=== PATIENT | female | born 1945 | race Caucasian/White ===

== ENCOUNTER 2023-06-09 09:14 | Outpatient (OUT) | payer MEDICARE, OTHER, SELFPAY ==
[2023-06-09 10:06] LABS: Basophils Percent Auto 0.5 % (0.2-2.0); Eosinophils Absolute Auto 0.1 10^3/uL (0.0-0.7); Eosinophils Percent Auto 1.8 % (0.9-7.0); Hematocrit 32.2 % (36.0-48.0); Hemoglobin 10.5 g/dL (12.0-16.0); Immature Granulocytes Abs Auto 0.04 10^3/uL (0.00-0.03); Immature Granulocytes Pct Auto 0.7 % (0.0-0.5); Lymphocytes Absolute Auto 1.5 10^3/uL (1.2-3.8); Lymphocytes Percent Auto 27.2 % (20.5-60.0); Mean Corpuscular HGB Conc 32.6 g/dL (29.9-35.2); Mean Corpuscular Hemoglobin 26.6 pg (26.7-34.0); Mean Corpuscular Volume 81.7 fL (81.0-99.0); Monocytes Absolute Auto 0.4 10^3/uL (0.3-0.8); Monocytes Percent Auto 7.8 % (1.7-12.0); Neutrophils Absolute Auto 3.5 10^3/uL (1.4-6.5); Platelet Count 214 10^3/uL (150-450); Red Blood Count 3.94 10^6/uL (4.20-5.40); Red Cell Distribution Width 14.6 % (11.0-15.0); White Blood Count 5.7 10^3/uL (4.0-11.0)
[2023-06-09 10:18] LABS: Alanine Aminotransferase 13 U/L (14-59); Albumin Globulin Ratio 1.3; Albumin Level 3.9 g/dL (3.4-5.0); Alkaline Phosphatase 79 U/L (46-116); Anion Gap 12.5; Aspartate Amino Transferase 14 U/L (15-37); BUN Creatinine Ratio 25.5; Bilirubin Total 0.4 mg/dL (0.2-1.0); Calcium 10.1 mg/dL (8.5-10.1); Carbon Dioxide 25.9 mmol/L (21.0-32.0); Chloride 105 mmol/L (98-107); Estimated GFR (African America 58 (>=60); Estimated GFR (Non-African Ame 48 (>=60); Glucose 99 mg/dL (74-106); Potassium 4.4 mmol/L (3.5-5.1); Sodium 139 mmol/L (136-145); Total Protein 6.9 g/dL (6.4-8.2)
== END 2023-06-09 09:15 | disposition home or self-care (01) ==
LOC: LAB 09:19
PROVIDERS: PCP Nurse Practitioner
DX: M10.09 Idiopathic gout, multiple sites (principal); M15.0 Primary generalized (osteo)arthritis; Z79.899 Other long term (current) drug therapy
CPT/HCPCS: 36415; 80053; 84550; 85025

== ENCOUNTER 2023-06-09 09:25 | Outpatient (OUT) | payer MEDICARE, OTHER, SELFPAY ==
[2023-06-09 10:17] LABS: Alanine Aminotransferase 14 U/L (14-59); Albumin Globulin Ratio 1.4; Alkaline Phosphatase 80 U/L (46-116); Anion Gap 13.1; Aspartate Amino Transferase 12 U/L (15-37); BUN Creatinine Ratio 26.4; Bilirubin Total 0.4 mg/dL (0.2-1.0); Calcium 10.1 mg/dL (8.5-10.1); Carbon Dioxide 26.3 mmol/L (21.0-32.0); Chloride 105 mmol/L (98-107); Estimated GFR (African America 58 (>=60); Estimated GFR (Non-African Ame 48 (>=60); Globulin 2.9 g/dL; Glucose 100 mg/dL (74-106); Potassium 4.4 mmol/L (3.5-5.1); Sodium 140 mmol/L (136-145); Total Protein 6.9 g/dL (6.4-8.2)
[2023-06-10 15:11] LABS: PTH, Intact 159 pg/mL (15-65)
== END 2023-06-09 09:26 | disposition home or self-care (01) ==
PROVIDERS: PCP Nurse Practitioner; Visit Provider Nurse Practitioner
DX: E55.9 Vitamin D deficiency, unspecified (principal); N25.81 Secondary hyperparathyroidism of renal origin; M10.09 Idiopathic gout, multiple sites; M15.0 Primary generalized (osteo)arthritis; Z79.899 Other long term (current) drug therapy
CPT/HCPCS: 36415; 80053; 82306; 83970; 84550; 85025

== ENCOUNTER 2023-08-09 20:24 | Inpatient (IN) | payer MEDICARE, OTHER, SELFPAY ==
[2023-08-09] VITALS (11 sets, daily range): BP systolic 107–145; BP diastolic 58–91; PULSE 82–98; RESP 16; TEMP 36.4–36.7; O2SAT 93–98; BMI 29.6
--- NOTE | 2023-08-09 20:57 | ED.NAVMDI1 ---
HPI - Nausea/Vomiting/Diarrhea General Chief complaint: Nausea/Vomiting/Diarrhea Stated complaint: COVID+ 08/03/23, Flu Like Symptoms Time Seen by Provider: 08/09/23 20:26 Source: patient and family Mode of arrival: Wheelchair Limitations: no limitations History of Present Illness HPI Narrative: 77-year-old female presents with continued diarrhea and concern for dehydration for the past 10 days. She was diagnosed with COVID last week. She has also been vomiting and was given Zofran by her family doctor yesterday and no episodes of vomiting today. She had 1 episode of watery diarrhea today. Daughter states that she has been trying to drink fluids, but has only urinated once today. She complains of acid reflux with the vomiting. She does not complain of any abdominal pain. No recent antibiotics. Denies fever, cough, dizziness, abd or back pain, dysuria, SOB or CP Related Data Home Medications Medication Instructions Recorded Confirmed amlodipine 10 mg tablet 10 mg PO DAILY 08/09/23 08/09/23 colchicine 0.5 mg tablet 0.6 mg PO DAILY 08/09/23 08/09/23 febuxostat 80 mg tablet (Uloric) 80 mg PO DAILY 08/09/23 08/09/23 fluoxetine 20 mg capsule 20 mg PO DAILY 08/09/23 08/09/23 lisinopril 20 mg tablet 10 mg PO DAILY 08/09/23 08/09/23 methylprednisolone 4 mg tablet 2 mg PO PRN 08/09/23 08/09/23 (Medrol) omeprazole 20 mg capsule,delayed 20 mg PO DAILY 08/09/23 08/09/23 release rosuvastatin 10 mg tablet (Crestor) 10 mg PO DAILY 08/09/23 08/09/23 tramadol 50 mg tablet 25 mg PO Q6H PRN pain 08/09/23 08/09/23 Allergies Allergy/AdvReac Type Severity Reaction Status Date / Time Penicillins Allergy Unknown Verified 08/09/23 20:46 Review of Systems ROS Status of ROS 10 or more systems reviewed and unremarkable except as noted in history and below [facility] Medical History (Updated 08/09/23 @ 23:43 by Finn Arias MD) HTN (hypertension) ?I10 - Essential (primary) hypertension (ICD-10) Family History (Updated 08/09/23 @ 23:09 by Stella Oneal) Mother Family history of CHF (congestive heart failure) Family history of COPD (chronic obstructive pulmonary disease) Family history of diabetes mellitus Family history of cancer Family history of hypertension Social History (Updated 08/09/23 @ 23:10 by Stella Oneal) Within the past year, how often did you have a drink containing alcohol: never Within the past year, how often did you have six or more drinks on one occasion: never Score interpretation: A score less than 3 is consistent with normal alcohol consumption. Smoking status: Never smoker Second hand tobacco smoke exposure: No Non-prescribed substance use: denies use Previous occupational history: Housewife. Known occupational exposures/hazards: No Highest level of school completed/degree received: high school graduate Do you want help with school or training: No Are you now , , , , never or living with a partner: In a typical week, how many times do you talk on the telephone with family, friends, or neighbors: 3 or more times per week How often do you get together with friends or relatives: 3 or more times per week How often do you attend moravian or episcopalian services: 4 or more times per year Do you belong to any clubs or organizations such as moravian groups unions, [employer] or athletic groups, or school groups: no Total score: 3 Score interpretation: A score of greater than or equal to 2 indicates the lowest level of social isolation. Little interest or pleasure in doing things: not at all Feeling down, depressed, or hopeless: not at all Feel stressed/tense/nervous/anxious/difficulty sleeping: not at all Due to disability, difficulty making decisions: No Do you think of yourself as: straight/heterosexual Gender Identity: female Exam Narrative Exam Narrative: General: alert, no distress, talking in full an complete sentences skin: warm, dry, intact head: normocephalic, atraumatic eyes: EOMI, normal conjunctiva nose: nares patent neck: supple, trachea midline cardiac: +S1/S1. no murmur respiratory: lungs CTA, non-labored, no wheezing, no retractions abdomen: soft, NT extremities: FROM x 4, strength +5/5, capillary refill intact neuro: A&Ox3 psych: appropriate mood and affect, cooperative Constitutional Vital Signs, click to edit/add: Last Vital Signs Temp 97.6 F 10/11/23 22:47 Pulse 82 08/09/23 22:47 Resp 16 08/09/23 22:47 BP 130/78 08/09/23 22:47 Pulse Ox 96 08/09/23 22:47 O2 Del Method Room Air 08/09/23 22:47 Course Vital Signs Vital signs: Vital Signs Temperature 98.1 F 08/09/23 20:42 Pulse Rate 98 H 08/09/23 20:42 Respiratory Rate 16 08/09/23 20:42 Blood Pressure 145/91 H 08/09/23 20:42 Pulse Oximetry 98 08/09/23 20:42 Oxygen Delivery Method Room Air 08/09/23 20:42 Temperature 97.6 F 08/09/23 22:47 Pulse Rate 82 08/09/23 22:47 Respiratory Rate 16 08/09/23 22:47 Blood Pressure 130/78 08/09/23 22:47 Pulse Oximetry 96 08/09/23 22:47 Oxygen Delivery Method Room Air 08/09/23 22:47 MDM - Nausea/Vomiting/Diarrhea MDM Narrative Medical decision making narrative: Patient given IV fluids, Protonix for the acid reflux and GI cocktail. Creatinine 2.09 and previously 1.1 is diagnosed with ANA. Magnesium 1.2 and will be given 4 g IV. No other significant lab normalities. C. difficile ordered, but she has not given a sample yet. Case discussed with the Dr. Arias, hospitalist who accepts admission. Lab Data Labs: Lab Results 08/09/23 Range/Units 21:02 WBC 7.1 (4.0-11.0) 10^3/uL RBC 4.20 (4.20-5.40) 10^6/uL Hgb 10.9 L (12.0-16.0) g/dL Hct 34.3 L (36.0-48.0) % MCV 81.7 (81.0-99.0) fL MCH 26.0 L (26.7-34.0) pg MCHC 31.8 (29.9-35.2) g/dL RDW 14.6 (11.0-15.0) % Plt Count 349 (150-450) 10^3/uL MPV 9.6 (9.5-13.5) fL Neut % (Auto) 66.8 (43.0-75.0) % Lymph % (Auto) 15.9 L (20.5-60.0) % [place] % (Auto) 14.9 H (1.7-12.0) % Eos % (Auto) 0.1 L (0.9-7.0) % Baso % (Auto) 0.6 (0.2-2.0) % Neut # (Auto) 4.7 (1.4-6.5) 10^3/uL Lymph # (Auto) 1.1 L (1.2-3.8) 10^3/uL [place] # (Auto) 1.1 H (0.3-0.8) 10^3/uL Eos # (Auto) 0.0 (0.0-0.7) 10^3/uL Baso # (Auto) 0.0 (0.0-0.1) 10^3/uL Abs Immat Gran (auto) 0.12 H (0.00-0.03) 10^3/uL Imm/Tot Granulo (auto) 1.7 H (0.0-0.5) % Sodium 137 (136-145) mmol/L Potassium 3.8 (3.5-5.1) mmol/L Chloride 103 (98-107) mmol/L Carbon Dioxide 23.1 (21.0-32.0) mmol/L Anion Gap 14.7 BUN 39.0 H (7.0-18.0) mg/dL Creatinine 2.09 H (0.55-1.02) mg/dL Est GFR ( Amer) 28 L (>=60) Est GFR (Non-Af Amer) 23 L (>=60) BUN/Creatinine Ratio 18.7 Glucose 115 H (74-106) mg/dL Calcium 9.4 (8.5-10.1) mg/dL Magnesium 1.2 L (1.8-2.4) mg/dL Total Bilirubin 0.4 (0.2-1.0) mg/dL AST 14 L (15-37) U/L ALT 12 L (14-59) U/L Alkaline Phosphatase 90 (46-116) U/L Total Protein 6.8 (6.4-8.2) g/dL Albumin 3.3 L (3.4-5.0) g/dL Globulin 3.5 g/dL Albumin/Globulin Ratio 0.9 Discharge Plan Discharge Chief Complaint: Nausea/Vomiting/Diarrhea Clinical Impression: ANA (acute kidney injury), Nausea and vomiting, Hypomagnesemia, COVID-19 Patient Disposition: Admitted As Inpatient Time of Disposition Decision: 21:45 Condition: Good
[2023-08-09 21:09] LABS: Basophils Percent Auto 0.6 % (0.2-2.0); Eosinophils Percent Auto 0.1 % (0.9-7.0); Hematocrit 34.3 % (36.0-48.0); Hemoglobin 10.9 g/dL (12.0-16.0); Immature Granulocytes Abs Auto 0.12 10^3/uL (0.00-0.03); Immature Granulocytes Pct Auto 1.7 % (0.0-0.5); Lymphocytes Absolute Auto 1.1 10^3/uL (1.2-3.8); Lymphocytes Percent Auto 15.9 % (20.5-60.0); Mean Corpuscular HGB Conc 31.8 g/dL (29.9-35.2); Mean Corpuscular Volume 81.7 fL (81.0-99.0); Mean Platelet Volume 9.6 fL (9.5-13.5); Monocytes Absolute Auto 1.1 10^3/uL (0.3-0.8); Monocytes Percent Auto 14.9 % (1.7-12.0); Neutrophils Absolute Auto 4.7 10^3/uL (1.4-6.5); Neutrophils Percent Auto 66.8 % (43.0-75.0); Platelet Count 349 10^3/uL (150-450); Red Cell Distribution Width 14.6 % (11.0-15.0); White Blood Count 7.1 10^3/uL (4.0-11.0)
[2023-08-09] MEDS: lidocaine HCL 15 ML, MAG HYDROX/ALUMINUM HYD/SIMETH 30 ML, HYOSCYAMINE SULFATE 0.25 MG PO (21:22)
[2023-08-09] MEDS: 0.9 % SODIUM CHLORIDE 1,000 ML 500 ML IV (21:22)
[2023-08-09] MEDS: PANTOPRAZOLE SODIUM 40 MG VIAL IV (21:22)
[2023-08-09 21:27] LABS: Alanine Aminotransferase 12 U/L (14-59); Albumin Globulin Ratio 0.9; Albumin Level 3.3 g/dL (3.4-5.0); Alkaline Phosphatase 90 U/L (46-116); Anion Gap 14.7; Aspartate Amino Transferase 14 U/L (15-37); BUN Creatinine Ratio 18.7; Bilirubin Total 0.4 mg/dL (0.2-1.0); Calcium 9.4 mg/dL (8.5-10.1); Carbon Dioxide 23.1 mmol/L (21.0-32.0); Chloride 103 mmol/L (98-107); Estimated GFR (African America 28 (>=60); Estimated GFR (Non-African Ame 23 (>=60); Globulin 3.5 g/dL; Glucose 115 mg/dL (74-106); Magnesium 1.2 mg/dL (1.8-2.4); Potassium 3.8 mmol/L (3.5-5.1); Sodium 137 mmol/L (136-145); Total Protein 6.8 g/dL (6.4-8.2)
--- NOTE | 2023-08-09 21:33 | PC.NURSE ---
pt presents to ED because patient states that on the monday prior to 08/03/2023 she started having n/v. pt diagnosed with covid on the . patient states that she was at [facility] on and admitted and discharged after a day. yesterday patient was throwing up all day and daughter called pcp and had zofran sent to pharmacy. pt hasn't thrown up since last night. patient started having diarrhea today and unable to keep fluids down without having abdominal pain.
[2023-08-09] MEDS: MAGNESIUM SULFATE IN WATER 2 GM/50 ML PREMIX IV (22:21)
[2023-08-09] MEDS: 0.9 % SODIUM CHLORIDE 1,000 ML 100 ML IV (23:32)
[2023-08-09] MEDS: ENOXAPARIN SODIUM 30 MG/0.3 ML SYRINGE SUBQ (23:32)
--- NOTE | 2023-08-09 23:39 | W.PM.TELEPN ---
Progress Note: Subjective Subjective Interval history: CC: Weakness, fatigue, nausea, vomiting, diarrhea HPI: This is a very pleasant 77 years old female who presents with above complaints. Patient stating that about 10 days ago she developed nausea, vomiting and bouts of watery diarrhea. Few days later she has been diagnosed with COVID 19 infection. Patient denies any respiratory symptoms. She is not able to tolerate oral intake. She gradually become weak and dizzy. On evaluation in the emergency room patient found to have worsening renal failure, electrolyte derangements. Medical services consulted for admission Exam Narrative Exam Narrative: ROS: 1.General: See above 2.HEENT: no APPLE, no blurry vision, no swallow problems, no nasal congestion, no sore throat 3.Pulmonary: no cough, SOB, wheezes 4.CVS: no CP, no palpitations, no VAZQUEZ, no SOB, no intermittent claudication 5.GI: See above 6.: no renal colic, no hematuria, urinary frequency or urgency 7.Extremities: no edema 8.Neurological: no dizziness, vertigo, double or blurry vision, no no focal weakness, no paresthesia, no swallow or speech problems 9.Musculosceletal: no joint pains, no joint swelling, no back pain 10.Dermatological: no skin rashes, no lesions, no pruritus 11.Hematological: no bleeding, no hx/o clots 12.Endocrinological: no heat/cold intolerance, no hx/o diabetes 13.Psychiatric: no suicidal or homicidal thoughts Physical Exam: Not in distress, pleasant, lucid, cooperative, Head - atraumatic, eyes - pupils equal, round, reactive to light, extra ocular movement intact, dry mucous membranes Neck - supple, thyroid not enlarged, LN not palpated Lungs - clear to auscultation, no dullness on percussion CVS - heart sounds S1, S2, no additional murmurs gallop, regular rate and rhythm Gastrointestinal?abdomen is soft, non-tender, non-distended, no organomegaly, positive bowel sounds Extremities no clubbing, cyanosis or edema Neurological?cranial nerve II?XII grossly intact, no meningeal signs, no cerebellar signs, no sensory deficit Musculoskeletal - joints, no effusions, ROM preserved Dermatological - the skin dry, warm, no rashes Psychiatric?patient is AAO X3, patient has normal affect Constitutional Vital Signs, click to edit/add: Last Vital Signs Temp 97.6 F 08/09/23 22:47 Pulse 82 08/09/23 22:47 Resp 16 08/09/23 22:47 BP 130/78 08/09/23 22:47 Pulse Ox 96 08/09/23 22:47 O2 Del Method Room Air 08/09/23 22:47 Progress Note: Objective Labs Labs: Short CBC 08/09/23 Range/Units 21:02 WBC 7.1 (4.0-11.0) 10^3/uL Hgb 10.9 L (12.0-16.0) g/dL Hct 34.3 L (36.0-48.0) % Plt Count 349 (150-450) 10^3/uL BMP 08/09/23 21:02 Sodium 137 Potassium 3.8 Chloride 103 Carbon Dioxide 23.1 BUN 39.0 H Creatinine 2.09 H Glucose 115 H Calcium 9.4 Liver Function 08/09/23 Range/Units 21:02 Total Bilirubin 0.4 (0.2-1.0) mg/dL AST 14 L (15-37) U/L ALT 12 L (14-59) U/L Alkaline Phosphatase 90 (46-116) U/L Albumin 3.3 L (3.4-5.0) g/dL Progress Note: A&P Assessment and Plan (1) ANA (acute kidney injury): Assessment and Plan: This is related to GI losses. Symptoms controlled with Zofran. IV fluid resuscitation. Encourage oral intake (2) Nausea and vomiting: Assessment and Plan: As above (3) COVID-19: Assessment and Plan: Symptomatic and supportive care. Patient does not have any pulmonary involvement. No specific treatment. (4) Hypomagnesemia: Assessment and Plan: Replacement given in the emergency room. Recheck in the morning. Adjust as needed. (5) HTN (hypertension): Assessment and Plan: Hold off home dose of lisinopril while patient treated for renal insufficiency (6) Dyslipidemia: Assessment and Plan: Continue home dose of statin (7) Gout: Assessment and Plan: Continue allopurinol for flare prevention Plan As the provider for the telehealth service, I attest that I introduced myself to the patient, provided my credentials, disclosed by location and determined that based on a review of the patient's chart and discussion with members of the patient's treatment team, telemedicine via real-time, 2 way, and interactive audio and video platform is an appropriate and effective means of providing the service. ?The patient and I mutually agree this visit is appropriate for telemedicine. ?The virtual encounter was taken place from? [place], [place]. ?The encounter took approximately 35 minutes. ?The nurse was present during the entire time and I was able to move the stethoscope in appropriate directions. ?The patient was evaluated at the Hospital ? Portions of this note may be dictated using [employer] voice recognition software. Variances in spelling and vocabulary are possible and unintentional. Not all errors may be caught and/or corrected. Please notify the author if any discrepancies are noted and/or if the meaning of any statement is unclear.? ? Patient verbally consented for treatment via video visit with patient currently located at the [facility] and provider located in [place]. Telemedicine Attestation Telemedicine Attestation I conducted this encounter from [[place]] via secure live, [id number] video conference with the patient, located at [facility] with [ANA]. Prior to the interview, the risks and benefits of telemedicine were discussed with the patient and verbal consent was obtained.
[2023-08-10 04:38] VITALS: BP 119/73; PULSE 76; RESP 16; TEMP 36.7; O2SAT 95
[2023-08-10 06:57] LABS: Basophils Percent Auto 0.2 % (0.2-2.0); Eosinophils Percent Auto 0.2 % (0.9-7.0); Hematocrit 27.4 % (36.0-48.0); Hemoglobin 8.7 g/dL (12.0-16.0); Immature Granulocytes Abs Auto 0.07 10^3/uL (0.00-0.03); Immature Granulocytes Pct Auto 1.7 % (0.0-0.5); Lymphocytes Percent Auto 23.2 % (20.5-60.0); Mean Corpuscular HGB Conc 31.8 g/dL (29.9-35.2); Mean Corpuscular Hemoglobin 26.3 pg (26.7-34.0); Mean Corpuscular Volume 82.8 fL (81.0-99.0); Mean Platelet Volume 9.8 fL (9.5-13.5); Monocytes Absolute Auto 0.5 10^3/uL (0.3-0.8); Monocytes Percent Auto 12.5 % (1.7-12.0); Neutrophils Absolute Auto 2.5 10^3/uL (1.4-6.5); Neutrophils Percent Auto 62.2 % (43.0-75.0); Platelet Count 229 10^3/uL (150-450); Red Blood Count 3.31 10^6/uL (4.20-5.40); Red Cell Distribution Width 14.5 % (11.0-15.0); White Blood Count 4.1 10^3/uL (4.0-11.0)
[2023-08-10 07:01] LABS: Anion Gap 12.4; BUN Creatinine Ratio 23.8; Carbon Dioxide 24.5 mmol/L (21.0-32.0); Chloride 107 mmol/L (98-107); Estimated GFR (African America 36 (>=60); Estimated GFR (Non-African Ame 30 (>=60); Glucose 93 mg/dL (74-106); Magnesium 1.7 mg/dL (1.8-2.4); Potassium 3.9 mmol/L (3.5-5.1); Sodium 140 mmol/L (136-145)
[2023-08-10 07:55] LABS: SARS-CoV-2 Ag POSITIVE (NEGATIVE)
[2023-08-10 08:29] VITALS: BP 115/68
[2023-08-10] MEDS: OMEPRAZOLE 20 MG CAPSULE.DR PO (08:29)
[2023-08-10] MEDS: ATORVASTATIN CALCIUM 40 MG TABLET PO (08:29)
[2023-08-10] MEDS: AMLODIPINE BESYLATE 5 MG TABLET 10 MG PO (08:29)
[2023-08-10] MEDS: FLUOXETINE HCL 20 MG CAPSULE PO (08:29)
[2023-08-10] MEDS: CETIRIZINE HCL 10 MG TABLET PO (08:35)
[2023-08-10] MEDS: ACETAMINOPHEN 325 MG TABLET 650 MG PO (08:35)
[2023-08-10] MEDS: MAGNESIUM SULFATE IN WATER 2 GM/50 ML PREMIX IV (08:41)
--- NOTE | 2023-08-10 11:11 | P.HP_ITS ---
H&P: HPI History of Present Illness Chief complaint: Nausea, vomiting, diarrhea Narrative: 77 y/o female who presents to ER with GI symptoms for 10 days. Initially developed nausea and vomiting. Given zofran and found covid-19 positive. Developed diarrhea. C/o decreased appetite and not drinking much since. Continued diarrhea. Afebrile. No SOB or cough. Developed worsening weakness and fatigue. No abdominal pain or cramping. Concerned of dehydration and to ER. Labs showed ANA and low magnesium. Covid-19 positive. Admitted for treatment. Started IV fluids and replacement magnesium. Continues to c/o severe weakness. Continues to have nausea and not able to eat or drink much. Afebrile. Review of Systems ROS Constitutional Reports: fatigue; Denies: fever, chills or night sweats Cardiovascular Denies: chest pain, palpitations or edema Respiratory Denies: shortness of breath, cough or wheezing Gastrointestinal Reports: nausea, vomiting and diarrhea; Denies: abdominal pain Genitourinary Denies: painful urination PFSH [facility] Medical History (Updated 08/10/23 @ 10:30 by Avery Smith MD) Dyslipidemia ?E78.5 - Hyperlipidemia, unspecified (ICD-10) Gout ?M10.9 - Gout, unspecified (ICD-10) Nausea and vomiting ?R11.2 - Nausea with vomiting, unspecified (ICD-10) Family History (Updated 08/09/23 @ 23:09 by Stella Oneal) Mother Family history of CHF (congestive heart failure) Family history of COPD (chronic obstructive pulmonary disease) Family history of diabetes mellitus Family history of cancer Family history of hypertension Social History (Updated 08/09/23 @ 23:10 by Stella Oneal) Within the past year, how often did you have a drink containing alcohol: never Within the past year, how often did you have six or more drinks on one occasion: never Score interpretation: A score less than 3 is consistent with normal alcohol consumption. Smoking status: Never smoker Second hand tobacco smoke exposure: No Non-prescribed substance use: denies use Previous occupational history: Housewife. Known occupational exposures/hazards: No Highest level of school completed/degree received: high school graduate Do you want help with school or training: No Are you now , , , , never or living with a partner: In a typical week, how many times do you talk on the telephone with family, friends, or neighbors: 3 or more times per week How often do you get together with friends or relatives: 3 or more times per week How often do you attend religion or anglican services: 4 or more times per year Do you belong to any clubs or organizations such as religion groups unions, fraternal or athletic groups, or school groups: no Total score: 3 Score interpretation: A score of greater than or equal to 2 indicates the lowest level of social isolation. Little interest or pleasure in doing things: not at all Feeling down, depressed, or hopeless: not at all Feel stressed/tense/nervous/anxious/difficulty sleeping: not at all Due to disability, difficulty making decisions: No Do you think of yourself as: straight/heterosexual Gender Identity: female Meds Home Medications and Allergies Home Medications Medication Instructions Recorded Confirmed Type amlodipine 10 mg tablet 10 mg PO DAILY 08/09/23 08/09/23 History febuxostat 80 mg tablet (Uloric) 80 mg PO DAILY 08/09/23 08/09/23 History fluoxetine 20 mg capsule 20 mg PO DAILY 08/09/23 08/09/23 History lisinopril 20 mg tablet 20 mg PO DAILY 08/09/23 08/10/23 History omeprazole 20 mg capsule,delayed 20 mg PO DAILY 08/09/23 08/09/23 History release rosuvastatin 10 mg tablet (Crestor) 10 mg PO DAILY 08/09/23 08/09/23 History tramadol 50 mg tablet 25 mg PO BID PRN pain 08/09/23 08/10/23 History cetirizine 10 mg tablet (24Hour 10 mg PO DAILY 08/10/23 08/10/23 History Allergy) colchicine (gout) 0.6 mg tablet 0.6 mg PO DAILY PRN gout flair 08/10/23 08/10/23 History (Colcrys) Allergies Allergy/AdvReac Type Severity Reaction Status Date / Time Penicillins Allergy Unknown Verified 08/09/23 20:46 Exam Constitutional Vital Signs, click to edit/add: Last Vital Signs Temp 98.0 F 08/10/23 04:38 Pulse 76 08/10/23 04:38 Resp 16 08/10/23 04:38 BP 115/68 08/10/23 08:29 Pulse Ox 95 08/10/23 04:38 O2 Del Method Room Air 08/10/23 04:38 Documenting provider has reviewed patient's vital signs: yes Common normals: no apparent distress, oriented x3 and alert HENMT Common normals: normocephalic Eye Common normals: PERRL and EOMs intact bilaterally Respiratory Common normals: normal respiratory effort and clear to auscultation bilaterally Cardio Common normals: regular rate, regular rhythm, no gallops, no murmurs and no rub GI Common normals: Normal to inspection, nondistended, normoactive bowel sounds present and non-tender Extremity Common normals: no pedal edema Results Labs Labs: Short CBC 08/09/23 08/10/23 Range/Units 21:02 06:40 WBC 7.1 4.1 (4.0-11.0) 10^3/uL Hgb 10.9 L 8.7 L (12.0-16.0) g/dL Hct 34.3 L 27.4 L (36.0-48.0) % Plt Count 349 229 (150-450) 10^3/uL BMP 08/09/23 08/10/23 21:02 06:40 Sodium 137 140 Potassium 3.8 3.9 Chloride 103 107 Carbon Dioxide 23.1 24.5 BUN 39.0 H 40.0 H Creatinine 2.09 H 1.68 H Glucose 115 H 93 Calcium 9.4 9.0 Liver Function 08/09/23 Range/Units 21:02 Total Bilirubin 0.4 (0.2-1.0) mg/dL AST 14 L (15-37) U/L ALT 12 L (14-59) U/L Alkaline Phosphatase 90 (46-116) U/L Albumin 3.3 L (3.4-5.0) g/dL Assessment and Plan Assessment and Plan (1) ANA (acute kidney injury): (2) Nausea and vomiting: (3) COVID-19: (4) Hypomagnesemia: (5) HTN (hypertension): (6) Dyslipidemia: (7) Gout: Plan Diagnosed with Covid-19 08/03 and symptoms worsening. Continued diarrhea and nausea along with decreased PO intake. Labs showed ANA and continue IV fluids. Use zofran PRN. Slowly advance diet as tolerated. Start PT for weakness. Resume home medication. Patient meets inpatient criteria based on needing a least 2 midnights in the hospital.
--- NOTE | 2023-08-10 11:36 | CM.NOTE ---
Rounds made with Dr. Smith. No plan for discharge today. Verbalizes understanding.
[2023-08-10] MEDS: ONDANSETRON PF 4 MG/2 ML VIAL IV ×2 (11:52→16:14)
[2023-08-10] MEDS: 0.9 % SODIUM CHLORIDE 1,000 ML 100 ML IV ×2 (11:52→20:36)
[2023-08-10 13:31] VITALS: BP 158/88; PULSE 76; RESP 2; TEMP 36.6; O2SAT 95
--- NOTE | 2023-08-10 13:35 | PC.NURSE ---
pt showed nurse that she had not taken her Uloric this am and had left them on bedside table,, stating they cause her diarhhea but she forgot to tell nurse this am. Pills thrown out at this time.
--- NOTE | 2023-08-10 14:00 | SWNOTE1 ---
SW met with pt to discuss dc needs. Pt lives at home with her and daughter. Pt voices she is independent at home and has no concerns about discharge at this time. Pt worked with therapy and had no needs. SW reviewed Important Message from Medicare form with pt. Pt voiced understanding, no questions at this time. Pt signed form, original given to pt and copy placed on chart.
[2023-08-10 14:20] VITALS: BP 143/77; PULSE 72; RESP 16; TEMP 36.9
[2023-08-10 19:32] VITALS: BP 141/74; PULSE 71; RESP 16; TEMP 37.1; O2SAT 94
[2023-08-10] MEDS: TRAMADOL HCL 50 MG TABLET 25 MG PO (20:36)
[2023-08-10] MEDS: ENOXAPARIN SODIUM 30 MG/0.3 ML SYRINGE SUBQ (22:45)
[2023-08-11] MEDS: ACETAMINOPHEN 325 MG TABLET 650 MG PO ×4 (00:18→22:35)
[2023-08-11] MEDS: TRAMADOL HCL 50 MG TABLET 25 MG PO (04:36)
[2023-08-11 04:37] VITALS: BP 146/80; PULSE 89; RESP 16; TEMP 37.2; O2SAT 93
[2023-08-11 05:12] LABS: Basophils Percent Auto 0.2 % (0.2-2.0); Eosinophils Percent Auto 0.4 % (0.9-7.0); Hematocrit 27.4 % (36.0-48.0); Hemoglobin 8.4 g/dL (12.0-16.0); Immature Granulocytes Abs Auto 0.08 10^3/uL (0.00-0.03); Immature Granulocytes Pct Auto 1.5 % (0.0-0.5); Lymphocytes Absolute Auto 1.1 10^3/uL (1.2-3.8); Lymphocytes Percent Auto 19.3 % (20.5-60.0); Mean Corpuscular HGB Conc 30.7 g/dL (29.9-35.2); Mean Corpuscular Hemoglobin 26.2 pg (26.7-34.0); Mean Corpuscular Volume 85.4 fL (81.0-99.0); Monocytes Absolute Auto 0.6 10^3/uL (0.3-0.8); Monocytes Percent Auto 11.2 % (1.7-12.0); Neutrophils Absolute Auto 3.7 10^3/uL (1.4-6.5); Neutrophils Percent Auto 67.4 % (43.0-75.0); Platelet Count 234 10^3/uL (150-450); Red Blood Count 3.21 10^6/uL (4.20-5.40); Red Cell Distribution Width 14.5 % (11.0-15.0); White Blood Count 5.4 10^3/uL (4.0-11.0)
[2023-08-11] MEDS: 0.9 % SODIUM CHLORIDE 1,000 ML 100 ML IV (05:27)
[2023-08-11 05:29] LABS: Anion Gap 11.2; BUN Creatinine Ratio 21.7; Calcium 8.9 mg/dL (8.5-10.1); Carbon Dioxide 21.6 mmol/L (21.0-32.0); Chloride 109 mmol/L (98-107); Estimated GFR (African America 49 (>=60); Estimated GFR (Non-African Ame 40 (>=60); Glucose 91 mg/dL (74-106); Potassium 3.8 mmol/L (3.5-5.1); Sodium 138 mmol/L (136-145)
[2023-08-11] MEDS: CETIRIZINE HCL 10 MG TABLET PO (08:36)
[2023-08-11 08:37] VITALS: BP 144/72
[2023-08-11] MEDS: AMLODIPINE BESYLATE 5 MG TABLET 10 MG PO (08:37)
[2023-08-11] MEDS: OMEPRAZOLE 20 MG CAPSULE.DR PO (08:37)
[2023-08-11] MEDS: FLUOXETINE HCL 20 MG CAPSULE PO (08:37)
[2023-08-11] MEDS: ATORVASTATIN CALCIUM 40 MG TABLET PO (08:37)
[2023-08-11 09:46] VITALS: O2SAT 92
--- NOTE | 2023-08-11 11:31 | CM.NOTE ---
Rounds made with Dr. Smith, no discharge today.
--- NOTE | 2023-08-11 11:38 | PM.PN ---
Progress Note: Subjective Subjective Interval history: Patient slightly improved today. Strength improved and ambulating better. Continues to have nausea but able to increase oral intake. Still with occasional diarrhea but slowing. Overall better but still significant weakness and difficulty moving around room. Afebrile. No chest pain or palpitations. No SOB or cough. Exam Constitutional Vital Signs, click to edit/add: Last Vital Signs Temp 98.9 F 08/11/23 04:37 Pulse 89 08/11/23 04:37 Resp 16 08/11/23 04:37 BP 144/72 H 08/11/23 08:37 Pulse Ox 92 L 08/11/23 09:46 O2 Del Method Room Air 08/11/23 09:46 Documenting provider has reviewed patient's vital signs: yes Common normals: no apparent distress, oriented x3 and alert HENMT Common normals: normocephalic Eye Common normals: PERRL and EOMs intact bilaterally Respiratory Common normals: normal respiratory effort and clear to auscultation bilaterally Cardio Common normals: regular rate, regular rhythm, no gallops, no murmurs and no rub GI Common normals: Normal to inspection, nondistended, normoactive bowel sounds present and non-tender Extremity Common normals: no pedal edema Progress Note: Objective Labs Labs: Short CBC 08/11/23 Range/Units 04:26 WBC 5.4 (4.0-11.0) 10^3/uL Hgb 8.4 L (12.0-16.0) g/dL Hct 27.4 L (36.0-48.0) % Plt Count 234 (150-450) 10^3/uL BMP 08/11/23 04:26 Sodium 138 Potassium 3.8 Chloride 109 H Carbon Dioxide 21.6 BUN 28.0 H Creatinine 1.29 H Glucose 91 Calcium 8.9 Progress Note: A&P Assessment and Plan (1) ANA (acute kidney injury): (2) Nausea and vomiting: (3) COVID-19: (4) Hypomagnesemia: (5) HTN (hypertension): (6) Dyslipidemia: (7) Gout: Plan Patient slowly improving but continued weakness. Decreased IV fluids and encourage PO intake. Continue PT and stressed need to ambulate around room. Monitor labs. Likely ready for discharge in next 1-2 days.
[2023-08-11 13:16] VITALS: BP 144/76; PULSE 84; RESP 20; TEMP 37.1; O2SAT 94
[2023-08-11] MEDS: 0.9 % SODIUM CHLORIDE 1,000 ML 70 ML IV (14:47)
[2023-08-11 20:10] VITALS: O2SAT 92
[2023-08-11 22:00] VITALS: BP 155/89; PULSE 74; RESP 18; TEMP 36.9; O2SAT 92
[2023-08-11] MEDS: ENOXAPARIN SODIUM 30 MG/0.3 ML SYRINGE SUBQ (23:12)
[2023-08-12] MEDS: TRAMADOL HCL 50 MG TABLET 25 MG PO (03:10)
[2023-08-12 05:37] VITALS: O2SAT 92
[2023-08-12 05:50] LABS: Basophils Percent Auto 0.2 % (0.2-2.0); Eosinophils Percent Auto 0.4 % (0.9-7.0); Hematocrit 27.7 % (36.0-48.0); Hemoglobin 8.7 g/dL (12.0-16.0); Immature Granulocytes Pct Auto 1.8 % (0.0-0.5); Lymphocytes Absolute Auto 0.9 10^3/uL (1.2-3.8); Lymphocytes Percent Auto 16.1 % (20.5-60.0); Mean Corpuscular HGB Conc 31.4 g/dL (29.9-35.2); Mean Corpuscular Hemoglobin 25.8 pg (26.7-34.0); Mean Corpuscular Volume 82.2 fL (81.0-99.0); Mean Platelet Volume 9.8 fL (9.5-13.5); Monocytes Absolute Auto 0.6 10^3/uL (0.3-0.8); Monocytes Percent Auto 10.1 % (1.7-12.0); Neutrophils Percent Auto 71.4 % (43.0-75.0); Platelet Count 209 10^3/uL (150-450); Red Blood Count 3.37 10^6/uL (4.20-5.40); Red Cell Distribution Width 14.3 % (11.0-15.0); White Blood Count 5.5 10^3/uL (4.0-11.0)
[2023-08-12 06:05] LABS: Anion Gap 11.8; BUN Creatinine Ratio 20.8; Calcium 9.1 mg/dL (8.5-10.1); Carbon Dioxide 22.1 mmol/L (21.0-32.0); Chloride 108 mmol/L (98-107); Estimated GFR (African America >60 (>=60); Estimated GFR (Non-African Ame 50 (>=60); Glucose 96 mg/dL (74-106); Potassium 3.9 mmol/L (3.5-5.1); Sodium 138 mmol/L (136-145)
[2023-08-12 06:08] LABS: Magnesium 1.5 mg/dL (1.8-2.4)
[2023-08-12] MEDS: 0.9 % SODIUM CHLORIDE 1,000 ML 70 ML IV (06:15)
[2023-08-12 06:43] VITALS: BP 141/82; PULSE 76; RESP 18; TEMP 36.9; O2SAT 93
[2023-08-12] MEDS: ACETAMINOPHEN 325 MG TABLET 650 MG PO (06:49)
--- NOTE | 2023-08-12 08:57 | PM.DS1 ---
DS: Providers Provider Date of admission: 08/10/23 10:30 Primary care physician: SOHAN QUIROZ Consults: 08/10/23 08:16 Occupational Therapy Eval and Treat Routine Reason for consultation: Weakness Physical Therapy Eval and Treat Routine Reason for consultation: Weakness DS: Diagnosis Discharge Diagnosis (1) ANA (acute kidney injury): (2) Nausea and vomiting: (3) COVID-19: (4) Hypomagnesemia: (5) HTN (hypertension): (6) Dyslipidemia: (7) Gout: DS: Summary Time Spent with Patient Time attestation: Total time spent providing and/or coordinating discharge services: Exam Constitutional Vital Signs, click to edit/add: Last Vital Signs Temp 98.4 F 08/12/23 06:43 Pulse 76 08/12/23 06:43 Resp 18 08/12/23 06:43 BP 141/82 08/12/23 06:43 Pulse Ox 93 L 08/12/23 06:43 O2 Del Method Room Air 08/12/23 06:43 DS: Data Data Completed and Pending Labs on day of discharge: Labs from last 24 hours 08/12/23 05:33 WBC 5.5 RBC 3.37 L Hgb 8.7 L Hct 27.7 L MCV 82.2 MCH 25.8 L MCHC 31.4 RDW 14.3 Plt Count 209 MPV 9.8 Neut % (Auto) 71.4 Lymph % (Auto) 16.1 L [place] % (Auto) 10.1 Eos % (Auto) 0.4 L Baso % (Auto) 0.2 Neut # (Auto) 4.0 Lymph # (Auto) 0.9 L [place] # (Auto) 0.6 Eos # (Auto) 0.0 Baso # (Auto) 0.0 Abs Immat Gran (auto) 0.10 H Imm/Tot Granulo (auto) 1.8 H Sodium 138 Potassium 3.9 Chloride 108 H Carbon Dioxide 22.1 Anion Gap 11.8 BUN 22.0 H Creatinine 1.06 H Est GFR ( Amer) >60 Est GFR (Non-Af Amer) 50 L BUN/Creatinine Ratio 20.8 Glucose 96 Calcium 9.1 Magnesium 1.5 L Discharge Plan Discharge Condition: Good Discharge Medications: No Action lisinopril 20 mg tablet 20 mg PO DAILY fluoxetine 20 mg capsule 20 mg PO DAILY amlodipine 10 mg tablet 10 mg PO DAILY tramadol 50 mg tablet 25 mg PO BID PRN (Reason: pain) omeprazole 20 mg capsule,delayed release(DR/EC) 20 mg PO DAILY rosuvastatin [Crestor] 10 mg tablet 10 mg PO DAILY febuxostat [Uloric] 80 mg tablet 80 mg PO DAILY colchicine (gout) [Colcrys] 0.6 mg tablet 0.6 mg PO DAILY PRN (Reason: gout flair) cetirizine [24Hour Allergy] 10 mg tablet 10 mg PO DAILY
[2023-08-12] MEDS: AMLODIPINE BESYLATE 5 MG TABLET 10 MG PO (09:01)
[2023-08-12] MEDS: FLUOXETINE HCL 20 MG CAPSULE PO (09:01)
[2023-08-12] MEDS: ATORVASTATIN CALCIUM 40 MG TABLET PO (09:01)
[2023-08-12] MEDS: OMEPRAZOLE 20 MG CAPSULE.DR PO (09:01)
[2023-08-12] MEDS: ONDANSETRON PF 4 MG/2 ML VIAL IV ×2 (09:01→13:26)
[2023-08-12] MEDS: FEBUXOSTAT 40 MG TABLET 80 MG PO (09:01)
[2023-08-12] MEDS: CETIRIZINE HCL 10 MG TABLET PO (09:01)
--- NOTE | 2023-08-12 12:12 | XR_ITS ---
The [address] [address] Patient Name: NADJA MCGRAW MRN: [id number] date: 1945 Sex: F Assigned Patient Location: Current Patient Location: Accession/Order Number: [id number] Exam Date: 08/12/2023 13:15 Report Date: 08/12/2023 15:28 At the request of: JACKIE ESTRADA Procedure: XR acute abdomen series PROCEDURE: XR acute abdomen series DATE: 08/12/2023 12:15 PM CDT COMPARISONS: None. CLINICAL INDICATION: 77 years Female abdominal pain and bloating FINDINGS: Frontal view the chest is done as part of the abdominal series. Heart and mediastinum are within normal limits. The lungs are clear. There is no pleural effusion or pneumothorax There is no evidence of free intraperitoneal air. There is prominent diffuse distention of the mid and proximal small bowel. There is a small amount of gas in the stomach. There is a paucity of gas in the colon. This bowel gas pattern likely represents mid to distal high-grade small bowel obstruction. No abnormal calcifications overlie the abdomen. XR/XR acute abdomen series IMPRESSION: Abdominal radiographs show findings most consistent with relatively high-grade mid to distal small bowel obstruction. Electronically authenticated by: GREER DAVIES Date: 08/12/2023 15:28
[2023-08-12] MEDS: TRAMADOL HCL 50 MG TABLET PO (13:26)
[2023-08-12 14:40] VITALS: BP 158/94; PULSE 83; RESP 18; TEMP 37; O2SAT 94
--- NOTE | 2023-08-12 15:10 | P.PN_ITS ---
Progress Note: Subjective Subjective Interval history: patient still complaining of nausea and having episodes of vomiting this afternoon, no diarrhea or bowel movement. She has been holding down breakfast and some dinner from last night. Patient denies any fevers chills. Having more body aches today and asks for an increase in her pain medication Exam Narrative Exam Narrative: General: Patient is alert, and oriented to person, place and time with normal affect, proper hygiene Skin: no visible rashes, or ulcers Head: atraumatic, acephalic Heart: Normal rate and rhythm, no murmurs/rubs/gallops Lungs: no audible wheezes, crackles and normal breath sounds all lung tristan Abdomen: sluggish bowel sounds, mild distension, No palpable masses, no organomegaly, no rebound/guarding/ or rigidity Musculoskeletal: no swelling bilateral lower extremities Neuro: CN II-X grossly intact, normal sensation upper and lower extremities Constitutional Vital Signs, click to edit/add: Last Vital Signs Temp 98.6 F 08/12/23 14:40 Pulse 83 08/12/23 14:40 Resp 18 08/12/23 14:40 BP 158/94 H 08/12/23 14:40 Pulse Ox 94 L 08/12/23 14:40 O2 Del Method Room Air 08/12/23 14:40 Progress Note: Objective Labs Labs: Short CBC 08/12/23 Range/Units 05:33 WBC 5.5 (4.0-11.0) 10^3/uL Hgb 8.7 L (12.0-16.0) g/dL Hct 27.7 L (36.0-48.0) % Plt Count 209 (150-450) 10^3/uL BMP 08/12/23 05:33 Sodium 138 Potassium 3.9 Chloride 108 H Carbon Dioxide 22.1 BUN 22.0 H Creatinine 1.06 H Glucose 96 Calcium 9.1 Progress Note: A&P Assessment and Plan (1) COVID-19: Assessment and Plan: symptomatic treatment only, monitor respiratory status, pulse ox and not requiring oxygen at this time (2) Nausea and vomiting: Assessment and Plan: has been treating with Zofran and we'll give a dose of Phenergan to see if that helps improve, we'll also check a acute abdominal series (3) ANA (acute kidney injury): Assessment and Plan: improving with IV fluids (4) Hypomagnesemia: Assessment and Plan: and magnesium was 1.5 will give 2 g of magnesium today (5) HTN (hypertension): Assessment and Plan: continue amlodipine, lisinopril (6) Dyslipidemia: Assessment and Plan: continue rosuvastatin (7) Gout: Assessment and Plan: continue colchicine and Uloric (8) GERD (gastroesophageal reflux disease): Assessment and Plan: continue omeprazole Plan patient is a full code continue lovenox for dvt prophylaxis patient is inpatient and is expected to stay another night given vomiting and e letrolyte abnormalities
--- NOTE | 2023-08-12 16:03 | CT_ITS ---
[address] [address] Patient Name: NADJA MCGRAW MRN: [id number] date: 1945 Sex: F Assigned Patient Location: MS Current Patient Location: MS Accession/Order Number: [id number] Exam Date: 08/12/2023 19:25 Report Date: 08/12/2023 21:01 At the request of: JACKIE ESTRADA Procedure: CT abdomen pelvis w con EXAM: CT abdomen pelvis w con HISTORY: Abdominal pain and nausea with concern for small bowel obstruction COMPARISON: None. TECHNIQUE: CT of the abdomen and pelvis with intravenous contrast 100 mL of Omnipaque 300. Oral contrast was also administered. Dose reduction techniques were achieved by using automated exposure control and/or adjustment of mA and/or kV according to patient size and/or use of iterative reconstruction technique. FINDINGS: TUBES AND IMPLANTS: Enteric tube with tip in the proximal stomach LOWER CHEST: Small right pleural effusion. Right lower lobe subsegmental atelectasis ABDOMEN and PELVIS ABDOMINAL WALL AND SOFT TISSUES: Unremarkable. BONES: No suspicious lesions. There is 3 millimeters of anterolisthesis at L3-L4, 4 millimeters of anterolisthesis at L4-L5 and 3 millimeters of retrolisthesis at L5-S1. Multilevel degenerative changes of the spine. ARTERIES: Mild to moderate aortoiliac atherosclerosis without aneurysm VEINS: Unremarkable. LYMPH NODES: Unremarkable. PERITONEUM/ RETROPERITONEUM: Prominent mesenteric fluid BOWEL: There are multiple areas of wall thickening and decreased caliber of the distal ileum including the terminal ileum with upstream dilatation. Moderate sigmoid diverticula. APPENDIX: Not identified. LIVER: No focal lesions. GALLBLADDER: Unremarkable. BILE DUCTS: Not dilated SPLEEN: Unremarkable. PANCREAS: Atrophic without discrete mass. No ductal ADRENALS: Left adrenal nodule measuring 2.7 centimeters KIDNEYS/ URETERS: No stones or hydronephrosis. Right renal cysts. REPRODUCTIVE ORGANS: 2 rounded structures are seen involving the uterus and in the right adnexa measuring 3.8 and 3.9 centimeters respectively. URINARY BLADDER: Unremarkable CT/CT abdomen pelvis w con IMPRESSION: 1. There are multiple areas of wall thickening and decreased caliber of the distal ileum including the terminal ileum with upstream dilatation to the level of the duodenum. Prominent mesenteric edema and enteric fluid. This is suggestive of a small bowel obstruction related to inflammatory stricturing. This may represent inflammatory bowel disease. Fine 2. Two rounded structures are seen involving the uterus and in the right adnexa measuring 3.8 and 3.9 centimeters respectively. This may represent fibroids however the right adnexal lesion is nonspecific and pelvic ultrasound and/or MR is recommended for further evaluation. 3. Indeterminate left adrenal nodule measuring 2.[address] adrenal protocol for further evaluation as clinically warranted. 4. Moderate sigmoid diverticulosis. 5. Small right pleural effusion. Electronically authenticated by: DINA ARIZA Date: 08/12/2023 21:01
[2023-08-12] MEDS: LACTATED RINGER'S SOLUTION 1,000 ML 150 ML IV (17:00)
[2023-08-12] MEDS: MAGNESIUM SULFATE IN WATER 2 GM/50 ML PREMIX IV (17:00)
--- NOTE | 2023-08-12 17:11 | PC.NURSE ---
Attempted the first NG and met resistance and patient started vomiting. Pulled NG out. Gave the patient a couple minutes to breath before attempted again. Writing RN got a new tube and then patient stated she was ready. Patient tolerated the second attempt better and RN was able to successfully insert to 43cm without meeting resistance. Once NG tube was secured into place low intermittent suction was hooked up. Gastric contents was immediately seen. Patient was then cleaned up and linens were changed. Patient stated that felt better and denied having any further needs at this time.
[2023-08-12 20:13] VITALS: O2SAT 90
[2023-08-12] MEDS: ENOXAPARIN SODIUM 30 MG/0.3 ML SYRINGE SUBQ (22:43)
[2023-08-12 22:48] VITALS: BP 160/85; PULSE 96; RESP 18; TEMP 36.9; O2SAT 90
[2023-08-13] VITALS (47 sets, daily range): BP systolic 95–152; BP diastolic 64–89; PULSE 79–143; RESP 11–22; TEMP 36.1–37.4; O2SAT 87–100
[2023-08-13] MEDS: LACTATED RINGER'S SOLUTION 1,000 ML 150 ML IV ×2 (02:26→10:22)
[2023-08-13 05:30] LABS: Basophils Percent Auto 0.3 % (0.2-2.0); Eosinophils Percent Auto 0.1 % (0.9-7.0); Hematocrit 30.4 % (36.0-48.0); Hemoglobin 9.6 g/dL (12.0-16.0); Immature Granulocytes Abs Auto 0.14 10^3/uL (0.00-0.03); Immature Granulocytes Pct Auto 1.4 % (0.0-0.5); Lymphocytes Absolute Auto 0.5 10^3/uL (1.2-3.8); Lymphocytes Percent Auto 5.3 % (20.5-60.0); Mean Corpuscular HGB Conc 31.6 g/dL (29.9-35.2); Mean Corpuscular Hemoglobin 25.6 pg (26.7-34.0); Mean Corpuscular Volume 81.1 fL (81.0-99.0); Mean Platelet Volume 9.9 fL (9.5-13.5); Monocytes Absolute Auto 0.7 10^3/uL (0.3-0.8); Monocytes Percent Auto 7.4 % (1.7-12.0); Neutrophils Absolute Auto 8.3 10^3/uL (1.4-6.5); Neutrophils Percent Auto 85.5 % (43.0-75.0); Platelet Count 253 10^3/uL (150-450); Red Blood Count 3.75 10^6/uL (4.20-5.40); Red Cell Distribution Width 14.3 % (11.0-15.0); White Blood Count 9.7 10^3/uL (4.0-11.0)
[2023-08-13 05:49] LABS: Anion Gap 16.9; BUN Creatinine Ratio 17.8; Calcium 9.9 mg/dL (8.5-10.1); Carbon Dioxide 19.8 mmol/L (21.0-32.0); Chloride 105 mmol/L (98-107); Estimated GFR (African America >60 (>=60); Estimated GFR (Non-African Ame 50 (>=60); Glucose 94 mg/dL (74-106); Potassium 3.7 mmol/L (3.5-5.1); Sodium 138 mmol/L (136-145)
[2023-08-13 05:56] LABS: Magnesium 1.6 mg/dL (1.8-2.4)
--- NOTE | 2023-08-13 06:00 | XR_ITS ---
The [address] [address] Patient Name: NADJA MCGRAW MRN: [id number] date: 1945 Sex: F Assigned Patient Location: MS Current Patient Location: MS Accession/Order Number: [id number] Exam Date: 08/13/2023 05:30 Report Date: 08/13/2023 08:03 At the request of: EMERALD GRAVES Procedure: XR acute abdomen series EXAM: XR acute abdomen series HISTORY: small bowel obstruction COMPARISON: Prior day CT and Acute Abdominal Series TECHNIQUE: Frontal view of the chest and supine and upright views of the abdomen FINDINGS: TUBES/LINES: Enteric tube with tip subdiaphragmatic although side port above the GE junction CHEST: Mild hypoinflation. Streaky bibasilar opacities, likely atelectasis. No focal consolidation. No pneumothorax. No pleural effusion. Unremarkable cardiomediastinal contours. ABDOMEN: Redemonstrated near diffuse dilated loops of small bowel predominantly measuring up to 4.8 cm with air-fluid levels and progressive stacking. No gas or stool noted distally within the colon. No pneumoperitoneum. Contrast within the bladder. Ingested oral contrast is not well visualized. BONES & SOFT TISSUE: Unremarkable. XR/XR acute abdomen series IMPRESSION: 1. Redemonstrated radiographic findings compatible with small bowel insertion without significant interval change. 2. Intragastric, prepyloric enteric tube with side-port just above the GE junction. Consider advancement. Electronically authenticated by: PRABHJOT LUU Date: 08/13/2023 08:03
[2023-08-13 06:13] LABS: Amylase 12 U/L (25-115)
[2023-08-13 06:18] LABS: Alanine Aminotransferase 9 U/L (14-59); Albumin Globulin Ratio 0.9; Albumin Level 2.6 g/dL (3.4-5.0); Alkaline Phosphatase 81 U/L (46-116); Anion Gap 16.8; Aspartate Amino Transferase 12 U/L (15-37); BUN Creatinine Ratio 17.3; Bilirubin Total 0.5 mg/dL (0.2-1.0); Calcium 9.9 mg/dL (8.5-10.1); Carbon Dioxide 19.9 mmol/L (21.0-32.0); Chloride 105 mmol/L (98-107); Estimated GFR (African America 58 (>=60); Estimated GFR (Non-African Ame 48 (>=60); Glucose 94 mg/dL (74-106); Potassium 3.7 mmol/L (3.5-5.1); Sodium 138 mmol/L (136-145); Total Protein 5.6 g/dL (6.4-8.2)
[2023-08-13 06:24] LABS: Erythrocyte Sedimentation Rate 31 mm/hr (<=30)
--- NOTE | 2023-08-13 07:52 | PM.GSCN ---
History of Present Illness Consult details Consult date: 08/13/23 Reason for consult: abdominal pain Requesting physician: Jerilyn Spears Narrative: Leanne Alanis is a 77-year-old female who presented to the Emergency Department with persistent nausea and vomiting for the last two weeks. She was admitted to [facility] from August 03 to August 04 for the same and had stool cultures performed which were negative and was found to have iron deficiency anemia as well as chronic kidney disease stage III. She was discharged home and was doing well until recently nausea and vomiting continued. I was consulted last evening due to persistent nausea and vomiting and acute abdominal series showing a possible small bowel obstruction. I then ordered a CAT scan of the abdomen and pelvis with oral contrast which continues to show high-grade small bowel obstruction with inflammatory changes in the distal ileum suspicious for possible inflammatory bowel disease. Patient states she is having upper abdominal pain which comes and goes. She had a nasogastric tube placed last evening and has had about 1500 mL of output since that time. She has not passed flatus in the last two days and has had no further diarrhea since being admitted to the hospital. She states that she became ill about two weeks ago after eating a hot dog and the following couple of days she had nausea and vomiting and diarrhea and thought it was food poisoning. She then went to [facility] where she was admitted as above. She was then discharged and felt slightly better until this past Monday or Monday she became ill again. She had seen her primary care provider prior to being placed in [facility]. She has never had an EGD or colonoscopy. She does have iron deficiency anemia. She also tested positive for Covid at [facility] and here.she denies any acute shortness of breath or chest pain and fevers or chills or body aches.she denies any melena hematochezia or family history of colon cancer, or any inflammatory bowel disease. She has never had any surgery. She has only been hospitalized for childbirth. Review of Systems ROS Status of ROS 10 or more systems reviewed and unremarkable except as noted in history and below [facility] Medical History (Updated 08/14/23 @ 06:25 by Stevie Uribe MD) Dyslipidemia ?E78.5 - Hyperlipidemia, unspecified (ICD-10) Gout ?M10.9 - Gout, unspecified (ICD-10) Nausea and vomiting ?R11.2 - Nausea with vomiting, unspecified (ICD-10) Family History Mother Family history of CHF (congestive heart failure) Family history of COPD (chronic obstructive pulmonary disease) Family history of diabetes mellitus Family history of cancer Family history of hypertension Social History Within the past year, how often did you have a drink containing alcohol: never Within the past year, how often did you have six or more drinks on one occasion: never Score interpretation: A score less than 3 is consistent with normal alcohol consumption. Smoking status: Never smoker Second hand tobacco smoke exposure: No Non-prescribed substance use: denies use Previous occupational history: Housewife. Known occupational exposures/hazards: No Highest level of school completed/degree received: high school graduate Do you want help with school or training: No Are you now , , , , never or living with a partner: In a typical week, how many times do you talk on the telephone with family, friends, or neighbors: 3 or more times per week How often do you get together with friends or relatives: 3 or more times per week How often do you attend roman catholic or jainism services: 4 or more times per year Do you belong to any clubs or organizations such as roman catholic groups unions, fraternal or athletic groups, or school groups: no Total score: 3 Score interpretation: A score of greater than or equal to 2 indicates the lowest level of social isolation. Little interest or pleasure in doing things: not at all Feeling down, depressed, or hopeless: not at all Feel stressed/tense/nervous/anxious/difficulty sleeping: not at all Due to disability, difficulty making decisions: No Do you think of yourself as: straight/heterosexual Gender Identity: female Meds Home Medications and Allergies Home Medications Medication Instructions Recorded Confirmed Type amlodipine 10 mg tablet 10 mg PO DAILY 08/09/23 08/09/23 History febuxostat 80 mg tablet (Uloric) 80 mg PO DAILY 08/09/23 08/09/23 History fluoxetine 20 mg capsule 20 mg PO DAILY 08/09/23 08/09/23 History lisinopril 20 mg tablet 20 mg PO DAILY 08/09/23 08/10/23 History omeprazole 20 mg capsule,delayed 20 mg PO DAILY 08/09/23 08/09/23 History release rosuvastatin 10 mg tablet (Crestor) 10 mg PO DAILY 08/09/23 08/09/23 History tramadol 50 mg tablet 25 mg PO BID PRN pain 08/09/23 08/10/23 History cetirizine 10 mg tablet (24Hour 10 mg PO DAILY 08/10/23 08/10/23 History Allergy) colchicine (gout) 0.6 mg tablet 0.6 mg PO DAILY PRN gout flair 08/10/23 08/10/23 History (Colcrys) Allergies Allergy/AdvReac Type Severity Reaction Status Date / Time Penicillins Allergy Unknown Verified 08/09/23 20:46 Exam Constitutional Vital Signs, click to edit/add: Last Vital Signs Temp 99.3 F 08/13/23 05:33 Pulse 103 H 08/13/23 05:33 Resp 20 08/13/23 05:33 BP 152/84 H 08/13/23 05:33 Pulse Ox 92 L 08/13/23 05:33 O2 Del Method Room Air 08/13/23 05:33 Documenting provider has reviewed patient's vital signs: yes Common normals: no apparent distress, average body habitus, oriented x3, healthy appearing, alert and well nourished General appearance: cooperative, comfortable and well developed Orientation/consciousness: Yes awake, Yes oriented to person, Yes oriented to place and Yes oriented to time [facility] Common normals: normocephalic, moist oral mucous membranes (dry buccal mucosa with nasogastric tube in nares) and dentition normal Respiratory Common normals: normal respiratory effort and no retractions Auscultation: crackles (right lower base otherwise rest of the lungs clear to auscultation) Cardio Common normals: regular rate, regular rhythm and no gallops GI Common normals: soft to palpation Inspection: normal to inspection, abdominal distension and central obesity Auscultation: absent bowel sounds Palpation: tender Percussion: tympanic to percussion Extremity Common normals: normal to inspection Neuro Common normals: oriented x3 and CN's II-XII intact bilaterally Results Labs Labs: Abnormal lab results 08/13/23 08/13/23 08/13/23 Range/Units 05:04 05:04 05:04 RBC 3.75 L (4.20-5.40) 10^6/uL Hgb 9.6 L (12.0-16.0) g/dL Hct 30.4 L (36.0-48.0) % MCH 25.6 L (26.7-34.0) pg Neut % (Auto) 85.5 H (43.0-75.0) % Lymph % (Auto) 5.3 L (20.5-60.0) % Eos % (Auto) 0.1 L (0.9-7.0) % Neut # (Auto) 8.3 H (1.4-6.5) 10^3/uL Lymph # (Auto) 0.5 L (1.2-3.8) 10^3/uL Abs Immat Gran (auto) 0.14 H (0.00-0.03) 10^3/uL Imm/Tot Granulo (auto) 1.4 H (0.0-0.5) % ESR 31 H (<=30) mm/hr Carbon Dioxide 19.8 L 19.9 L (21.0-32.0) mmol/L BUN 19.0 H 19.0 H (7.0-18.0) mg/dL Creatinine 1.07 H (0.55-1.02) mg/dL Est GFR ( Amer) (>=60) Est GFR (Non-Af Amer) (>=60) Magnesium (1.8-2.4) mg/dL AST (15-37) U/L ALT (14-59) U/L Total Protein (6.4-8.2) g/dL Albumin (3.4-5.0) g/dL Amylase (25-115) U/L Lipase (16.0-77.0) U/L 08/13/23 08/13/23 Range/Units 05:04 05:04 RBC (4.20-5.40) 10^6/uL Hgb (12.0-16.0) g/dL Hct (36.0-48.0) % MCH (26.7-34.0) pg Neut % (Auto) (43.0-75.0) % Lymph % (Auto) (20.5-60.0) % Eos % (Auto) (0.9-7.0) % Neut # (Auto) (1.4-6.5) 10^3/uL Lymph # (Auto) (1.2-3.8) 10^3/uL Abs Immat Gran (auto) (0.00-0.03) 10^3/uL Imm/Tot Granulo (auto) (0.0-0.5) % ESR (<=30) mm/hr Carbon Dioxide (21.0-32.0) mmol/L BUN (7.0-18.0) mg/dL Creatinine 1.10 H (0.55-1.02) mg/dL Est GFR ( Amer) 58 L (>=60) Est GFR (Non-Af Amer) 50 L 48 L (>=60) Magnesium 1.6 L (1.8-2.4) mg/dL AST 12 L (15-37) U/L ALT 9 L (14-59) U/L Total Protein 5.6 L (6.4-8.2) g/dL Albumin 2.6 L (3.4-5.0) g/dL Amylase 12 L (25-115) U/L Lipase 11.0 L (16.0-77.0) U/L Diabetes panel 08/13/23 08/13/23 08/13/23 Range/Units 05:04 05:04 05:04 Sodium 138 138 (136-145) mmol/L Potassium 3.7 3.7 (3.5-5.1) mmol/L Chloride 105 (98-107) mmol/L Carbon Dioxide (21.0-32.0) mmol/L BUN (7.0-18.0) mg/dL Creatinine (0.55-1.02) mg/dL Glucose (74-106) mg/dL Calcium (8.5-10.1) mg/dL AST (15-37) U/L ALT (14-59) U/L Alkaline Phosphatase (46-116) U/L Total Protein (6.4-8.2) g/dL Albumin (3.4-5.0) g/dL 08/13/23 08/13/23 08/13/23 Range/Units 05:04 05:04 05:04 Sodium (136-145) mmol/L Potassium (3.5-5.1) mmol/L Chloride 105 (98-107) mmol/L Carbon Dioxide 19.8 L 19.9 L (21.0-32.0) mmol/L BUN 19.0 H 19.0 H (7.0-18.0) mg/dL Creatinine 1.07 H (0.55-1.02) mg/dL Glucose (74-106) mg/dL Calcium (8.5-10.1) mg/dL AST (15-37) U/L ALT (14-59) U/L Alkaline Phosphatase (46-116) U/L Total Protein (6.4-8.2) g/dL Albumin (3.4-5.0) g/dL 08/13/23 08/13/23 08/13/23 Range/Units 05:04 05:04 05:04 Sodium (136-145) mmol/L Potassium (3.5-5.1) mmol/L Chloride (98-107) mmol/L Carbon Dioxide (21.0-32.0) mmol/L BUN (7.0-18.0) mg/dL Creatinine 1.10 H (0.55-1.02) mg/dL Glucose 94 94 (74-106) mg/dL Calcium 9.9 9.9 (8.5-10.1) mg/dL AST 12 L (15-37) U/L ALT 9 L (14-59) U/L Alkaline Phosphatase 81 (46-116) U/L Total Protein 5.6 L (6.4-8.2) g/dL Albumin 2.6 L (3.4-5.0) g/dL Calcium panel 08/13/23 08/13/23 Range/Units 05:04 05:04 Calcium 9.9 9.9 (8.5-10.1) mg/dL Albumin 2.6 L (3.4-5.0) g/dL Pituitary panel 08/13/23 08/13/23 08/13/23 Range/Units 05:04 05:04 05:04 Sodium 138 138 (136-145) mmol/L Potassium 3.7 3.7 (3.5-5.1) mmol/L Chloride 105 (98-107) mmol/L Carbon Dioxide (21.0-32.0) mmol/L BUN (7.0-18.0) mg/dL Creatinine (0.55-1.02) mg/dL Glucose (74-106) mg/dL Calcium (8.5-10.1) mg/dL 08/13/23 08/13/23 08/13/23 Range/Units 05:04 05:04 05:04 Sodium (136-145) mmol/L Potassium (3.5-5.1) mmol/L Chloride 105 (98-107) mmol/L Carbon Dioxide 19.8 L 19.9 L (21.0-32.0) mmol/L BUN 19.0 H 19.0 H (7.0-18.0) mg/dL Creatinine 1.07 H (0.55-1.02) mg/dL Glucose (74-106) mg/dL Calcium (8.5-10.1) mg/dL 08/13/23 08/13/23 08/13/23 Range/Units 05:04 05:04 05:04 Sodium (136-145) mmol/L Potassium (3.5-5.1) mmol/L Chloride (98-107) mmol/L Carbon Dioxide (21.0-32.0) mmol/L BUN (7.0-18.0) mg/dL Creatinine 1.10 H (0.55-1.02) mg/dL Glucose 94 94 (74-106) mg/dL Calcium 9.9 9.9 (8.5-10.1) mg/dL Adrenal panel 08/13/23 08/13/23 08/13/23 Range/Units 05:04 05:04 05:04 Sodium 138 138 (136-145) mmol/L Potassium 3.7 3.7 (3.5-5.1) mmol/L Chloride 105 (98-107) mmol/L Carbon Dioxide (21.0-32.0) mmol/L BUN (7.0-18.0) mg/dL Creatinine (0.55-1.02) mg/dL Glucose (74-106) mg/dL Calcium (8.5-10.1) mg/dL Total Bilirubin (0.2-1.0) mg/dL AST (15-37) U/L ALT (14-59) U/L Alkaline Phosphatase (46-116) U/L Total Protein (6.4-8.2) g/dL Albumin (3.4-5.0) g/dL 08/13/23 08/13/23 08/13/23 Range/Units 05:04 05:04 05:04 Sodium (136-145) mmol/L Potassium (3.5-5.1) mmol/L Chloride 105 (98-107) mmol/L Carbon Dioxide 19.8 L 19.9 L (21.0-32.0) mmol/L BUN 19.0 H 19.0 H (7.0-18.0) mg/dL Creatinine 1.07 H (0.55-1.02) mg/dL Glucose (74-106) mg/dL Calcium (8.5-10.1) mg/dL Total Bilirubin (0.2-1.0) mg/dL AST (15-37) U/L ALT (14-59) U/L Alkaline Phosphatase (46-116) U/L Total Protein (6.4-8.2) g/dL Albumin (3.4-5.0) g/dL 08/13/23 08/13/23 08/13/23 Range/Units 05:04 05:04 05:04 Sodium (136-145) mmol/L Potassium (3.5-5.1) mmol/L Chloride (98-107) mmol/L Carbon Dioxide (21.0-32.0) mmol/L BUN (7.0-18.0) mg/dL Creatinine 1.10 H (0.55-1.02) mg/dL Glucose 94 94 (74-106) mg/dL Calcium 9.9 9.9 (8.5-10.1) mg/dL Total Bilirubin 0.5 (0.2-1.0) mg/dL AST 12 L (15-37) U/L ALT 9 L (14-59) U/L Alkaline Phosphatase 81 (46-116) U/L Total Protein 5.6 L (6.4-8.2) g/dL Albumin 2.6 L (3.4-5.0) g/dL All other labs normal. Imaging Abdominal x-ray: report reviewed Abdomen CT scan report/results: report reviewed Assessment and Plan Assessment and Plan (1) COVID-19: (2) Nausea and vomiting: (3) ANA (acute kidney injury): (4) Hypomagnesemia: (5) HTN (hypertension): (6) Dyslipidemia: (7) Gout: (8) GERD (gastroesophageal reflux disease): (9) Small bowel obstruction: Plan patient had acute abdominal series last evening showing acute high-grade small bowel obstruction therefore CT scan of abdomen and pelvis performed and show inflammatory changes of the terminal ileum for which they cannot rule out inflammatory bowel disease; sedimentation rate was slightly elevated at thirty-one and serum lactate was normal. Patient is anemic. Abdominal x-ray this morning continues to show air-fluid levels consistent with high-grade small bowel obstruction therefore patient will be offered sports for laparotomy with possible small bowel resection. Risks benefits and alternatives to surgery may include infection, bleeding, anastomotic leak, blood clots to the legs or lungs, pneumonia, heart attack, stroke, and/or . She currently tests positive for Covid and could be on a ventilator postoperatively.
--- NOTE | 2023-08-13 08:10 | P.GSPRC_ITS ---
Date of procedure: 08/13/23 Indications for Procedure: small bowel obstruction/abnormal CT scan Pre-op diagnosis: small bowel obstruction Post-op diagnosis: same as pre-op (with mesenteric mass) Procedure: exploratory laparotomy with extended ileocolic resection small bowel resection with removal of most of the ileum Findings: mesenteric adenopathy and small bowel obstruction distal ileum Anesthesia: KHUSHBU Surgeon: Stevie Uribe Procedure Summary: 77-year-old female presented to the [facility] complaints of nausea and vomiting and diarrhea ongoing for the past two weeks. She been hospitalized at another hospital last week from August 03 to August 04 with the same and was slightly better for a few days but nausea and vomiting and diarrhea and abdominal pain continued. CT scan of the abdomen and pelvis performed last night with oral contrast shows high-grade SBO with inflammatory changes in the terminal ileum suspicious for inflammatory bowel disease. Patient has chronic anemia.patient also has Covid and had Covid when she was hospitalized at the outside institution on August 03. Abdominal x-ray this morning continues to show high-grade SBO. Risks benefits and alternatives to surgery were explained to the patient and she agreed to accept. Patient was taken to the operating suite placed in the supine position and given a general anesthetic by the scanning manager.nasogastric tube was noted in the nares. Timeout was taken and preoperative antibiotics were given. SCDs were placed on bilateral lower extremities. The abdomen was prepped and draped usual sterile fashion. A standard midline incision was made just below the umbilicus down through all layers and the peritoneal cavity was entered.copious amounts of peritoneal fluid were obtained and sent for culture and sensitivity. About 2 L of straw-colored fluid was obtained.she had small bowel packed up to the ligam ent of Treitz. There was a big ball of bowel that was stuck together and the terminal ileum along with mesenteric adenopathy and firmness in that area about the size of a large softball. The appendix was normal and very small as well as the cecum. The small bowel went up to the cecum. Therefore an extended ileocolic resection with small bowel resection of most of the ileum was performed by lifting this out of the abdomen and dissecting along the line of Toldt laterally on the right side with a LigaSure device maintaining hemostasis. The right colon was brought into the operative field along with the distal ileum which was balled up . A window was made in the mesentery of the small bowel and a 80 mm PURNIMA was placed across that and fired; next the mesentery was taken down with LigaSure device and Aidee clamps and 0 Vicryl suture ligatures to maintain hemostasis. Once again to the cecum a window was made in the mid ascending colon and a PURNIMA stapler placed across the large intestine after the line of Toldt had been taken up to the hepatic flexure and freed up.The specimen was given to pathology. The remaining small bowel was run up to the ligament of Treitz and free of any tumors. There was dilatation of the small bowel proximal to the terminal ileum which was resected. Next a functional end-to-end [id number] anastomosis was performed by cutting off the corner of the ascending colon and the rest of the terminal ileum/jejunum placing them side to side and passing a PURNIMA stapler and firing that and then putting a TA sixty stapler across the common channel. This was fired and the excess cut away. There was a nice patent anastomosis with hemostasis being maintained this was then laid in normal anatomic position with no twisting of the small bowel. Irrigation was carried out with a liter of normal saline and all this was aspirated. The omentum was placed over the anastomosis. Nasogastric tube was checked for placement and confirmed. Right tube and ovary appeared normal although her some question on CT scan I didn't see anything abnormal and the uterus was small and normal for the patient's age. After all lap pads and retractors were removed from the abdomen the anterior rectus fascia was closed in running fashion with #1 PDS suture from superiorly and inferiorly meeting in the center and tied off. Subcutaneous tissues tissues were irrigated with normal saline and then the skin was closed with skin clips. Sterile dressing was placed. Sponge needle and stomach counts were correct. Case was clean contaminated emergency. Anesthesia wanted to leave the patient intubated due to Covid therefore she will go to the ICU. She may be extubated later this afternoon. Blister Packing Machine Tender: ENID Butterfield Estimated blood loss (mL): 100 Specimens: terminal ileum and proximal cecum and ascending colon with appendix Complications: No Condition: stable Disposition: ICU
--- NOTE | 2023-08-13 08:21 | P.PN_ITS ---
Progress Note: Subjective Subjective Interval history: over the last twenty-four hours patient has had an eventful course. I got a x- ray of the abdomen yesterday which revealed a small bowel obstruction. NG tube was inserted and placed to suction, I consulted general surgery Dr. Uribe who recommended CT scan. CT scan revealed a high-grade small bowel obstruction. This morning the plan is to take her to surgery for an exploratory laparotomy. Patient says she feels better than yesterday since the NG tube has been getting content out. She is still not passed any gas and denies any bowel movements.she denies any fevers or chills. No more episodes of vomiting but she has been nothing by mouth after midnight. Patient was then taken to surgery and was then brought from surgery to ICU still intubated. Patient became hypotensive and sepsis protocol was initiated and broad-spectrum antibiotics of Cipro and R ocephin were started. Patient will be given a 2 L fluid bolus Per protocol.her daughter was present at bedside prior to surgery, and I also spoke with daughter and the surgery waiting area when she got to the ICU as to plan of care. Exam Narrative Exam Narrative: General: Patient is alert, and oriented to person, place and time with normal affect, proper hygiene Skin: no visible rashes, or ulcers Head: atraumatic, acephalic Eyes: PERRLA, no nystagmus present, conjunctiva clear, no scleral icterus Ears: normal gross auditory acuity Heart: Normal rate and rhythm, no murmurs/rubs/gallops Lungs: no audible wheezes, crackles and normal breath sounds all lung tristan Abdomen: no audible bowel sounds, distension Musculoskeletal: no swelling bilateral lower extremities Neuro: CN II-X grossly intact, normal sensation upper and lower extremities Constitutional Vital Signs, click to edit/add: Last Vital Signs Temp 99.3 F 08/13/23 05:33 Pulse 103 H 08/13/23 05:33 Resp 20 08/13/23 05:33 BP 152/84 H 08/13/23 05:33 Pulse Ox 92 L 08/13/23 05:33 O2 Del Method Room Air 08/13/23 05:33 Progress Note: Objective Labs Labs: Short CBC 08/13/23 Range/Units 05:04 WBC 9.7 (4.0-11.0) 10^3/uL Hgb 9.6 L (12.0-16.0) g/dL Hct 30.4 L (36.0-48.0) % Plt Count 253 (150-450) 10^3/uL BMP 08/13/23 08/13/23 08/13/23 05:04 05:04 05:04 Sodium 138 138 Potassium 3.7 3.7 Chloride 105 Carbon Dioxide BUN Creatinine Glucose Calcium 08/13/23 08/13/23 08/13/23 05:04 05:04 05:04 Sodium Potassium Chloride 105 Carbon Dioxide 19.8 L 19.9 L BUN 19.0 H 19.0 H Creatinine 1.07 H Glucose Calcium 08/13/23 08/13/23 08/13/23 05:04 05:04 05:04 Sodium Potassium Chloride Carbon Dioxide BUN Creatinine 1.10 H Glucose 94 94 Calcium 9.9 9.9 Liver Function 08/13/23 Range/Units 05:04 Total Bilirubin 0.5 (0.2-1.0) mg/dL AST 12 L (15-37) U/L ALT 9 L (14-59) U/L Alkaline Phosphatase 81 (46-116) U/L Albumin 2.6 L (3.4-5.0) g/dL Progress Note: A&P Assessment and Plan (1) Septic shock: Assessment and Plan: patient with ALLERGY to penicillin will start Cipro 400 mg every 24 hours and Rocephin 1 g every 12 hours. We'll await results of peritoneal fluid analysis and surgical pathology. We'll monitor her CBC CMP. will recheck lactate level. Postoperatively patient is tachycardic, hypotensive. We'll also give thirty mL per kilo fluid bolus and continuous rate per sepsis protocol. We'll obtain blood and urine cultures. (2) Small bowel obstruction: Assessment and Plan: surgery today with large amount of small bowel resection and mass removal. Awaiting pathology results (3) Acute respiratory failure: Assessment and Plan: still remains intubated and sedated post-operatively, Anesthesia, Dr. Paredes managing Ventilator. (4) Iron deficiency anemia: Assessment and Plan: hemoglobin 9.6 willl continue to monitor, most likely underlying abdominal mass contributing (5) COVID-19: Assessment and Plan: currently no respiratory symptoms, monitor (6) ANA (acute kidney injury): Assessment and Plan: creatinine was 1.1, BUNs was nineteen patient has chronic kidney disease stage IIIa (7) Hypomagnesemia: Assessment and Plan: 1.6 today received magnesium yesterday most likely from small bowel obstruction and little absorption will recheck in the morning. (8) HTN (hypertension): Assessment and Plan: currently hypotensive for home hold home medications (9) GERD (gastroesophageal reflux disease): Assessment and Plan: and place on IV Protonix given patient is intubated (10) Stage 3a chronic kidney disease: Assessment and Plan: monitor Plan patient is a full code Lovenox for DVT prophylaxis due to patient's worsening status she was transferred to the ICU for closer monitoring, will require multiple more days of inpatient stay
[2023-08-13] MEDS: CEFAZOLIN SODIUM/DEXTROSE,ISO 2 GM/50 ML PIGGYBACK IV (08:30)
[2023-08-13] MEDS: LACTATED RINGER'S SOLUTION 1,000 ML 50 ML IV (11:20)
[2023-08-13] MEDS: PROPOFOL 1,000 MG/100 ML VIAL 9.96 MG IV (12:29)
--- NOTE | 2023-08-13 12:32 | PC.NURSE ---
aware of pts blood pressure
--- NOTE | 2023-08-13 12:38 | PC.NURSE ---
pt is sedated on ventilator at this time,propofol current rate 3mcg/kg/min per .
--- NOTE | 2023-08-13 12:56 | XR_ITS ---
[address] [address] Patient Name: NADJA MCGRAW MRN: [id number] date: 1945 Sex: F Assigned Patient Location: ICU Current Patient Location: ICU Accession/Order Number: [id number] Exam Date: 08/13/2023 14:30 Report Date: 08/13/2023 15:31 At the request of: GONZALO PETERS Procedure: XR chest 1V EXAM: XR chest 1V INDICATION: CHF. COMPARISON: None. TECHNIQUE: Single frontal view of the chest FINDINGS: Degenerative tube tip 2.2 cm above the kristin. Enteric tube tip not well seen due to poor beam penetration. Normal cardiomediastinal contours. No acute infiltrative process. No pleural effusion or pneumothorax. No acute osseous abnormality. XR/XR chest 1V IMPRESSION: 1. Endotracheal tube in satisfactory position. 2. Tip of the enteric tube not well seen. 3. No acute cardiopulmonary process. Electronically authenticated by: KAYLA TRIANA Date: 08/13/2023 15:31
[2023-08-13] MEDS: PROPOFOL 1,000 MG/100 ML VIAL 1.992 MG IV (13:00)
[2023-08-13] MEDS: MIDAZOLAM HCL 2 MG/2 ML VIAL IV (13:13)
--- NOTE | 2023-08-13 13:21 | PC.NURSE ---
pt arrived to ICU room 273 at 1140,see respiratory notes for vent settings. Propofol drip initiated at 1221 at a rate of 10mcg/kg/min per , pt resting comfortably pupils equal and reactive. Propofol drip rate reduced to 3mcg/kg/min at 1236 per due to pts blood pressure dropping,pt was also given 100mcg of epinephrine by . pt begins to arouse at 1240 aware of pts condition at this time. entry writer asked for an order regarding soft restraints for pts safety and was not given an order at this time. report was given to DianeUNIT DIRECTOR at 1245, the entry writer stayed at the bedside to assist the primary nurse with positioning pt and any additional help that was needed with tasks until 1310.
[2023-08-13] MEDS: SODIUM CHLORIDE 0.9% IV (13:30)
[2023-08-13] MEDS: PHENYLEPHRINE HCL IV (13:30)
[2023-08-13] MEDS: LACTATED RINGER'S SOLUTION 1,000 ML 1000 ML IV ×2 (14:00→19:21)
[2023-08-13] MEDS: LACTATED RINGER'S SOLUTION 1,000 ML 200 ML IV ×2 (14:03→19:26)
[2023-08-13 14:35] LABS: Hematocrit 31.7 % (36.0-48.0); Hemoglobin 9.9 g/dL (12.0-16.0); Mean Corpuscular HGB Conc 31.2 g/dL (29.9-35.2); Mean Corpuscular Volume 83.2 fL (81.0-99.0); Mean Platelet Volume 10.3 fL (9.5-13.5); Platelet Count 360 10^3/uL (150-450); Red Blood Count 3.81 10^6/uL (4.20-5.40); Red Cell Distribution Width 14.5 % (11.0-15.0); White Blood Count 9.8 10^3/uL (4.0-11.0)
--- NOTE | 2023-08-13 14:38 | CA_ITS ---
Patient Name Site Name NADJA MCGRAW [facility] Account No Medical Record Number Age Sex Date Time [id number] [facility]:[id number] F 08/14/2023 11:15 At the Request Of JACKIE ESTRADA ECHOCARDIOGRAM REPORT PROCEDURE: CA ECHO DOPPLER COMPLETE INDICATIONS: sepsis, respiratory failure COMPARISON: None. DESCRIPTION: COMPLETE ECHOCARDIOGRAM Real-time transthoracic echocardiography with 2D, M-mode, spectral and color flow Doppler performed. QUALITY: Limited image quality due to patient's condition. Patient is on a ventilator causing lung artifact during exam. LEFT VENTRICLE: Normal chamber size. Thickened septal wall. Hyperdynamic systolic function. LV EF: Visual estimation of left ventricular ejection fraction is hyperdynamic at approximately 70%. DIASTOLIC: Diastolic function is indeterminate. ATRIAL SEPTUM: LEFT ATRIUM: Normal chamber size. RIGHT ATRIUM: Normal chamber size. RIGHT VENTRICLE: Normal chamber size. Normal right ventricular systolic function. TRICUSPID VALVE: Normal mobility and thickness. No stenosis with trivial regurgitation. Mild pulmonary hypertension. RVSP 36 mmHg MITRAL VALVE: Normal mobility and thickness. No evidence of mitral valve stenosis. Moderate mitral annular calcification. Trivial mitral regurgitation. AORTIC VALVE: Normal trileaflet appearance. Mildly calcified aortic valve. Normal leaflet mobility. No evidence of aortic valve stenosis. Trivial aortic regurgitation. AORTIC ROOT: Normal diameter and appearance. PULMONIC VALVE: Not well visualized. PERICARDIUM: No evidence of pericardial effusion. IVC: Collapses with inspirations. Normal size. PLEURA: CONCLUSION: 1. Hyperdynamic left ventricular systolic function. LVEF is 70%. 2. Normal right ventricular size and systolic function. 3. No significant valvular dysfunction. 4. Mildly elevated right-sided pressures. 5. No pericardial effusion. 6. Technically difficult study due to patient's condition. Adult Echocardiography Procedure Report Left Ventricle LVEDD (3.7 - 5.6 cm): 3.45 cm LVESD (2.2 - 4.0 cm): 2.31 cm LVIVS thickness (0.6 - 1.2 cm): 1.84 cm LVPW thickness (0.5 - 1.0 cm): 1.43 cm e': 0.06 m/s E - e': 11.64 LVOT Max Gradient: 7.54 mm[Hg] LVOT Area (cm2): 1.37 m/s Peak Velocity (LVOT): 1.37 m/s Mean Velocity (LVOT): 1.08 m/s LVOT Diameter 2.01 cm Left Atrium LA Volume Index (2D A2C): 29.55 ml/m2 Left Atrium Systolic Dimension: 4.33 cm Mitral Valve MV E to A Ratio: 0.74 Mitral Valve A-Wave Peak Velocity: 0.97 m/s Mitral Valve E-Wave Peak Velocity: 0.72 m/s Right Ventricle RV Internal Diastolic Dimension: 2.59 cm Aorta AO Root Diam: 3.38 cm Aortic Valve AoV Area (Peak Tanner): 2.51 cm2, 2.51 cm2 AoV Area (VTI): 3.23 cm2, 3.23 cm2 Peak Velocity(Antegrade Flow): 1.73 m/s Peak Gradient(Antegrade Flow): 11.95 mm[Hg] Mean Velocity(Antegrade Flow): 1.22 m/s Mean Gradient(Antegrade Flow): 6.83 mm[Hg] Velocity Time Integral: 24.68 cm Tricuspid Valve Peak Velocity (Regurgitant Flow): 2.89 m/s, 2.78 m/s, 2.77 m/s Pulmonic Valve Peak Velocity: 1.67 m/s Peak Gradient: 11.22 mm[Hg] Right Atrium Right Atrium Systolic Pressure: 14.30 ml, 14.30 ml Dictated by: Robby Parks M.D. on 08/14/2023 at 18:55 Approved by: Robby Parks M.D. on 08/14/2023 at 18:59
[2023-08-13] MEDS: CIPROFLOXACIN IN 5 % DEXTROSE 400 MG/200 ML PIGGYBACK 200 MG IV (14:45)
[2023-08-13 14:51] LABS: Alanine Aminotransferase <6 U/L (14-59); Albumin Globulin Ratio 0.8; Albumin Level 1.8 g/dL (3.4-5.0); Alkaline Phosphatase 71 U/L (46-116); Anion Gap 16.4; Aspartate Amino Transferase 15 U/L (15-37); BUN Creatinine Ratio 13.2; Bilirubin Total 0.3 mg/dL (0.2-1.0); Calcium 8.8 mg/dL (8.5-10.1); Carbon Dioxide 18.1 mmol/L (21.0-32.0); Chloride 108 mmol/L (98-107); Estimated GFR (African America 38 (>=60); Estimated GFR (Non-African Ame 31 (>=60); Globulin 2.3 g/dL; Glucose 120 mg/dL (74-106); Potassium 3.5 mmol/L (3.5-5.1); Sodium 139 mmol/L (136-145); Total Protein 4.1 g/dL (6.4-8.2)
[2023-08-13 14:59] LABS: Lactate/Lactic Acid 4.3 mmol/L (0.4-2.0)
[2023-08-13] MEDS: CEFTRIAXONE 1,000 MG in 0.9 % SODIUM CHLORIDE 50 ML 100 MG IV (15:00)
[2023-08-13 15:03] LABS: Band Neutrophils Absolute 0.6 10^3/uL (0.0-0.3); Lymphocytes Absolute Manual 1.76 10^3/uL (1.20-3.80); Metamyelocytes Absolute Manual 0.09; Monocytes Absolute Manual 0.58 10^3/uL (0.30-0.80); Segmented Neut Absolute Manual 6.76 10^3/uL (1.4-6.5)
[2023-08-13 15:05] LABS: Polychromasia 1+
--- NOTE | 2023-08-13 16:32 | RESP.RT ---
titrrated down to 90%
--- NOTE | 2023-08-13 16:36 | RESP.RT ---
titrated down to 90%
[2023-08-13 16:47] LABS: SARS-CoV-2 Ag NEGATIVE (NEGATIVE)
[2023-08-13] MEDS: NOREPINEPHRINE BITARTRATE 4 MG in DEXTROSE 5 % IN WATER 250 ML IV (17:20)
[2023-08-13] MEDS: PANTOPRAZOLE SODIUM 40 MG VIAL IV (17:54)
[2023-08-13 17:59] LABS: Lactate/Lactic Acid 5.3 mmol/L (0.4-2.0)
[2023-08-13] MEDS: 0.9 % SODIUM CHLORIDE 1,000 ML 1000 ML IV (20:32)
[2023-08-13] MEDS: 0.9 % SODIUM CHLORIDE 1,000 ML 200 ML IV (20:34)
[2023-08-13] MEDS: NOREPINEPHRINE BITARTRATE 4 MG in DEXTROSE 5 % IN WATER 250 ML 114.3 MG IV ×2 (20:35→22:16)
--- NOTE | 2023-08-13 20:37 | P.EN_ITS ---
Event Note Event Note: around 5:35pm this evening i was notified that patient's lactate had increased to 5.3. orders placed to give additional 1 L bolus of LR per sepsis protocol, obtain PICC line. start and titrate Levophed due to hypotension, could also be Propofol contributing. I also called and spoke with Dr. Uribe and gave him up date on patient condition, worsening. No further orders given. I also spoke with patient's daughter of patient's worsening condition and how she is critical at this time. I also checked patient out to night time Hospitalist, Dr Briseno Sister about condition change and to monitor patient closely overnight. I discussed plan with ICU nurse, Diane. Recommended to possibly recheck ABG if no change. Our ABG processing machine is currently down and results are being sent to [facility], so at least an hour turn around time for results. I consulted pulmonary for the morning. Order placed.
[2023-08-13] MEDS: MAGNESIUM SULFATE IN WATER 2 GM/50 ML PREMIX IV (22:36)
[2023-08-13] MEDS: PROPOFOL 1,000 MG/100 ML VIAL 15 MG IV (22:50)
[2023-08-14] VITALS (46 sets, daily range): BP systolic 91–156; BP diastolic 47–74; PULSE 79–109; RESP 11–23; TEMP 36.9–37.1; O2SAT 92–99; BMI 29.6
[2023-08-14] MEDS: 0.9 % SODIUM CHLORIDE 1,000 ML 200 ML IV ×2 (01:21→05:41)
[2023-08-14] MEDS: NOREPINEPHRINE BITARTRATE 4 MG in DEXTROSE 5 % IN WATER 250 ML 114.3 MG IV ×3 (02:47→08:46)
[2023-08-14] MEDS: CEFTRIAXONE 1,000 MG in 0.9 % SODIUM CHLORIDE 50 ML 50 MG IV (02:48)
[2023-08-14 05:43] LABS: Hematocrit 27.6 % (36.0-48.0); Hemoglobin 8.9 g/dL (12.0-16.0); Mean Corpuscular HGB Conc 32.2 g/dL (29.9-35.2); Mean Corpuscular Hemoglobin 26.3 pg (26.7-34.0); Mean Corpuscular Volume 81.7 fL (81.0-99.0); Mean Platelet Volume 10.8 fL (9.5-13.5); Platelet Count 285 10^3/uL (150-450); Red Blood Count 3.38 10^6/uL (4.20-5.40); Red Cell Distribution Width 14.7 % (11.0-15.0)
[2023-08-14 05:57] LABS: White Blood Count 37.4 10^3/uL (4.0-11.0)
[2023-08-14 06:04] LABS: Anion Gap 16.5; BUN Creatinine Ratio 14.4; Calcium 7.8 mg/dL (8.5-10.1); Chloride 105 mmol/L (98-107); Estimated GFR (African America 33 (>=60); Estimated GFR (Non-African Ame 27 (>=60); Glucose 159 mg/dL (74-106); Potassium 3.5 mmol/L (3.5-5.1); Sodium 135 mmol/L (136-145)
[2023-08-14 06:07] LABS: Magnesium 1.3 mg/dL (1.8-2.4)
--- NOTE | 2023-08-14 06:17 | XR_ITS ---
The [address] [address] Patient Name: NADJA MCGRAW MRN: [id number] date: 1945 Sex: F Assigned Patient Location: ICU Current Patient Location: ICU Accession/Order Number: [id number] Exam Date: 08/14/2023 06:50 Report Date: 08/14/2023 07:04 At the request of: EMERALD GRAVES Procedure: XR chest 1V EXAM: XR chest 1V HISTORY: Ventilator COMPARISON: 08/13/2023 TECHNIQUE: Portable FINDINGS: LUNGS: Low lung volumes. Right basilar infiltrate. The left lung is clear. Endotracheal tube tip is 4.4 cm above the kristin VASCULATURE: No increased pulmonary vasculature. PLEURA: No pneumothorax, effusion, or pleural thickening. CARDIAC: No cardiomegaly or cardiac silhouette abnormality. MEDIASTINUM: No visible mass or adenopathy. BONES: No fracture or visible bone lesion. OTHER: Enteric tube extends off the field of view. Left Port-A-Cath tip projects over the mid superior vena cava XR/XR chest 1V IMPRESSION: Right basilar infiltrate Electronically authenticated by: JUN ROJAS Date: 08/14/2023 07:04
--- NOTE | 2023-08-14 06:21 | PM.GSPN ---
Progress Note: A&P Assessment and Plan (1) Septic shock: (2) Small bowel obstruction: (3) Acute respiratory failure: (4) Iron deficiency anemia: (5) COVID-19: (6) ANA (acute kidney injury): (7) Hypomagnesemia: (8) HTN (hypertension): (9) GERD (gastroesophageal reflux disease): (10) Stage 3a chronic kidney disease: (11) Malnutrition of moderate degree: Plan IV saline fluid boluses; chest x-ray; nutrition consult for TPN until extubated and eating Continue supportive care and antibiotics and watch urine output. She did have about 150 mL output since surgery. Spoke with daughter, Lela, who is at bedside. Subjective Subjective Interval history: postoperative day#1extended ileocolic resection for small bowel mass mesenteric mass pending pathology. Patient currently on ventilator intubated with poor urine output. Creatinine is increased from 1.59 to 1.8. White blood countis elevated at thirty-seven thousand. Patient on Cipro and Rocephin. Blood cultures pending. Peritoneal fluid cultures pending. Patient on levofed twenty-four mics per kilogram to maintain blood pressure. Nasogastric tube with bilious drainage only 500 mL since surgery output. She's had 10 L of fluid in but clinically appears dry. Buccal mucosa is severely dry. Exam Narrative Exam Narrative: on ventilator intubated and appears comfortable but on propofol Constitutional Vital Signs, click to edit/add: Last Vital Signs Temp 98.7 F 08/14/23 06:02 Pulse 92 H 08/14/23 06:02 Resp 18 08/14/23 06:02 BP 100/71 08/14/23 06:02 Pulse Ox 97 08/14/23 06:02 O2 Del Method Mechanical Ventilator 08/14/23 06:02 FiO2 50 08/14/23 06:02 Documenting provider has reviewed patient's vital signs: yes Common normals: no apparent distress GI Common normals: soft to palpation (incision clean dry and intact) Urinary Catheter Management Urinary Catheter Management Urethral: Cath placed during this visit: yes Urethral indwelling: Yes Reason for continuing: surgical procedure Insertion date: 08/13/23
[2023-08-14 06:43] LABS: Band Neutrophils Absolute 17.6 10^3/uL (0.0-0.3); Lymphocytes Absolute Manual 1.12 10^3/uL (1.20-3.80); Monocytes Absolute Manual 0.37 10^3/uL (0.30-0.80); Segmented Neut Absolute Manual 17.57 10^3/uL (1.4-6.5)
[2023-08-14 06:44] LABS: Myelocytes Absolute Manual 0.74
[2023-08-14 06:45] LABS: Toxic Granulation 2+; Toxic Vacuolation 1+
[2023-08-14 07:28] LABS: Lactate/Lactic Acid 2.9 mmol/L (0.4-2.0)
[2023-08-14] MEDS: FUROSEMIDE 40 MG/4 ML VIAL IVP (07:36)
[2023-08-14] MEDS: AMLODIPINE BESYLATE 5 MG TABLET 10 MG PO (08:08)
[2023-08-14] MEDS: ATORVASTATIN CALCIUM 40 MG TABLET PO (08:08)
[2023-08-14] MEDS: CETIRIZINE HCL 10 MG TABLET PO (08:09)
[2023-08-14] MEDS: FLUOXETINE HCL 20 MG CAPSULE PO (08:09)
[2023-08-14] MEDS: OMEPRAZOLE 20 MG CAPSULE.DR PO (08:09)
[2023-08-14] MEDS: PROPOFOL 1,000 MG/100 ML VIAL 15 MG IV ×3 (08:10→10:50)
--- NOTE | 2023-08-14 08:32 | PM.PN ---
Progress Note: Subjective Subjective Interval history: patient remains intubated. Lactate level is improving was down to three from 5.3 yesterday. Significant increase in white blood cell count this morning to thirty-seven. Anesthesia came and placed arterial line. Patient has a triple lumen PICC line in place. Patient's blood pressure has improved but is still requiring levophed. due to worsening leukocytosis and continued hypotension changed and antibiotics to vancomycin and Invanz today from Cipro and Rocephin. echocardiogram ordered and pending. Pulmonary and cardiology consults today. I also updated patient's daughter Nallely on patient's condition. Exam Narrative Exam Narrative: Skin: no visible rashes, or ulcers Head: atraumatic, acephalic Heart: Normal rate and rhythm, no murmurs/rubs/gallops Lungs: no audible wheezes, bilateral crackles Abdomen: diminished bowel sounds, no distension Musculoskeletal: no swelling bilateral lower extremities Neuro: CN II-X grossly intact, normal sensation upper and lower extremities Constitutional Vital Signs, click to edit/add: Last Vital Signs Temp 98.7 F 08/14/23 06:02 Pulse 92 H 08/14/23 06:02 Resp 18 08/14/23 06:02 BP 103/73 08/14/23 08:08 Pulse Ox 99 08/14/23 07:20 O2 Del Method Mechanical Ventilator 08/14/23 07:20 FiO2 40 08/14/23 07:20 General appearance: patient mechanically ventilated Progress Note: Objective Labs Labs: Short CBC 08/13/23 08/14/23 Range/Units 14:20 05:13 WBC 9.8 37.4 H* (4.0-11.0) 10^3/uL Hgb 9.9 L 8.9 L (12.0-16.0) g/dL Hct 31.7 L 27.6 L (36.0-48.0) % Plt Count 360 285 (150-450) 10^3/uL BMP 08/13/23 08/14/23 14:20 05:13 Sodium 139 135 L Potassium 3.5 3.5 Chloride 108 H 105 Carbon Dioxide 18.1 L 17.0 L BUN 21.0 H 26.0 H Creatinine 1.59 H 1.80 H Glucose 120 H 159 H Calcium 8.8 7.8 L Liver Function 08/13/23 Range/Units 14:20 Total Bilirubin 0.3 (0.2-1.0) mg/dL AST 15 (15-37) U/L ALT <6 L (14-59) U/L Alkaline Phosphatase 71 (46-116) U/L Albumin 1.8 L (3.4-5.0) g/dL Progress Note: A&P Assessment and Plan (1) Septic shock: Assessment and Plan: initially started on Cipro and Rocephin, broadened coverage with vancomycin and Invanz today secondary to worsening leukocytosis, hypotension, elevated lactate. This would also cover more anaerobes. Awaiting peritoneal cultures from surgery. Patient has a trouble lumen PICC line, arterial line was placed today. Patient remains intubated. (2) Cardiogenic postoperative shock: Assessment and Plan: elevated proBNP of twenty-four thousand, echocardiogram pending, cardiology consult, most likely from intensive IV fluids per sepsis protocol and possible cardiogenic shock from septic shock. right basilar infiltrate seen on Chest Xray, given a dose lasix 40mg IV x 1, most likely pulmonary edema (3) Acute respiratory failure: Assessment and Plan: pulmonary consult for vent management, patient remained iintubated/sedated, stable ABGs Qualifiers: Respiratory failure complication: hypoxia Qualified Code(s): J96.01 - Acute respiratory failure with hypoxia (4) Small bowel obstruction: Assessment and Plan: postop day #1 from small bowel colon resection. General surgery following. Elevated white blood cell count, but improving lactate level, sufficient urine output. Concern for possible ischemic bowel versus perforation if patient does not improve. (5) ANA (acute kidney injury): Assessment and Plan: patient has underlying chronic kidney disease but worse due to sepsis, continue IV fluid hydration (6) Hypomagnesemia: Assessment and Plan: and replace mag today with 2 g IV ?1 continue to monitor (7) GERD (gastroesophageal reflux disease): Assessment and Plan: continue IV Protonix (8) Iron deficiency anemia: Assessment and Plan: continue to monitor hemoglobin and hematocrit, stable today at 8.9 Plan patient is a full code Lovenox for DVT prophylaxis due to patient's worsening status requiring ICU care, will require multiple more days of inpatient stay
[2023-08-14 09:14] LABS: ABG PCO2 24.5 mmHg (35.0-45.0); HCO3 ABG 14.2 mmol/L (22.0-26.0); PO2 ABG 70.6 mmHg (80.0-100.0); pH ABG 7.371 (7.350-7.450)
[2023-08-14 09:15] LABS: Allen Test POSITIVE (POSITIVE); Base Excess ABG -11.1 mmol/L (-2.0-2.0); Fractionated Inspired Oxygen 40 %; O2 Mode VENT; Oxygen Saturation ABG 94.6 %; Puncture Site RR; Rate 11; Tidal Volume 550; Vent Mode AC
--- NOTE | 2023-08-14 10:23 | PM.ANBPRC ---
Anesthesia Bedside Procedure Procedural Section Pre-procedural diagnosis: septic shock with hypotension on pressors, need for invasive monitoring Post-procedural diagnosis: septic shock with hypotension on pressors, need for invasive monitoring Verification/time out: correct patient, correct site, correct procedure and time out performed Name of person performing procedure: Dr. Chaitanya Spears Assistance, if any: Dr. Curt Paredes ASA class: IV (multiorgan dysfunction) Description findings: pt sedated on mechanical ventilation Additional Procedures Name of procedure: right radial arterial line 20g arrow catheter Pre- procedure diagnosis: septic shock with hypotension on pressors, need for invasive monitoring Post-procedure diagnosis: septic shock with hypotension on pressors, need for invasive monitoring Verification/time out: correct patient, correct site, correct procedure and time out performed Estimated blood loss (if any): less than 5 mls Description/Findings: see medaxion documentation for complete procedure documentation. Pt hypotensive on vasopressors. Need for invasive monitoring per consult. summary: strict sterile technique, chloraprep, draping, sterile gloves, mask. x 1 attempt 20g arrow radial arterial line catheter. secured with mastisol and steri-strips, chg impregnated dressing. confirmation of pulsatile pleth on wave form and abscense or air in arterial line tubing. nursing education performed. arterial line labeled. hospital does not have wrist splints available. no apparent complicatons. Conclusion: patient tolerated procedure
--- NOTE | 2023-08-14 10:29 | PC.NURSE ---
Current NG plugged. NG removed and replaced. Pt tolerated without incident. Clear yellow output noted.
[2023-08-14] MEDS: LACTATED RINGER'S SOLUTION 1,000 ML 200 ML IV ×2 (11:08→16:19)
[2023-08-14] MEDS: ERTAPENEM SODIUM 0.5 GM in 0.9 % SODIUM CHLORIDE 50 ML IV (11:15)
[2023-08-14] MEDS: MAGNESIUM SULFATE IN WATER 2 GM/50 ML PREMIX IV (11:19)
[2023-08-14] MEDS: NOREPINEPHRINE BITARTRATE 4 MG in DEXTROSE 5 % IN WATER 250 ML 99.06 MG IV ×2 (11:20→13:52)
--- NOTE | 2023-08-14 12:15 | CM.NOTE ---
Rounds made with Dr. Spears. Currently intubated on vent. Dr. Spears spoke with daughter regarding new medication changes. Daughter verbalizes understanding.
[2023-08-14] MEDS: HYDROCORTISONE SODIUM SUCC PF 100 MG/2 ML VIAL IVP ×2 (12:38→19:59)
[2023-08-14] MEDS: ALBUMIN 25% PREMIX VIAL 25 GM/100 ML IV (12:44)
[2023-08-14] MEDS: VANCOMYCIN HCL 1,000 MG in 0.9 % SODIUM CHLORIDE 250 ML 250 MG IV (12:56)
[2023-08-14] MEDS: PANTOPRAZOLE SODIUM 40 MG VIAL IV (13:22)
[2023-08-14 13:47] LABS: Lactate/Lactic Acid 3.1 mmol/L (0.4-2.0)
--- NOTE | 2023-08-14 14:29 | SWNOTE1 ---
Pt is on vent, SW to re-assess once she is off.
[2023-08-14 15:21] LABS: SARS-CoV-2 NAA NOT DETECTED (NOT DETECTE)
--- NOTE | 2023-08-14 15:21 | PM.CCCN1 ---
Critical Care - CN: HPI Date of Service Date of service: 08/14/23 Consult Source: medical record Reason for consult: Septic shock, acute respiratory failure History: 77yo patient, with previous history of N/V x2 weeks and assessed at [facility] 08/03-03/2023 along with COVID-19, presented to [facility] with worsening N/V and abdominal pain. CT abdomen suggested a high grade SBO in the distal ileum. She underwent an exploratory laparotomy yesterday with a majority of the ileum resected. There was a questionable mesenteric mass noted. Culture were obtained. The patient, by the time of surgery, was significantly ill and developed septic shock. She required norepinephrine up to 26mcg/min. Currently, she remains intubated on norepinephrine. Creatinine has increased to 1.88 from ~1. An arterial line has been placed in the right radial artery. MAP is being monitored. Spoke with RN & RT, along with Dr. Cedrick Spears. Spoke with daughter, present at bedside, as well as son who is a family physician out of the area. Chart was reviewed. Review of Systems ROS Status of ROS unobtainable due to endotracheal tube and unobtainable due to medical condition [facility] Active Problems (Updated 08/14/23 @ 13:02 by Jerilyn Spears DO) (Acute) (Acute) (Acute) (Acute) (Acute) (Acute) (Acute) (Acute) (Acute) (Acute) (Acute) (Acute) (Acute) (Acute) Medical History (Updated 08/14/23 @ 13:02 by Jerilyn Spears DO) Dyslipidemia ?E78.5 - Hyperlipidemia, unspecified (ICD-10) Gout ?M10.9 - Gout, unspecified (ICD-10) Nausea and vomiting ?R11.2 - Nausea with vomiting, unspecified (ICD-10) Family History Mother Family history of CHF (congestive heart failure) Family history of COPD (chronic obstructive pulmonary disease) Family history of diabetes mellitus Family history of cancer Family history of hypertension Social History Within the past year, how often did you have a drink containing alcohol: never Within the past year, how often did you have six or more drinks on one occasion: never Score interpretation: A score less than 3 is consistent with normal alcohol consumption. Smoking status: Never smoker Second hand tobacco smoke exposure: No Non-prescribed substance use: denies use Previous occupational history: Housewife. Known occupational exposures/hazards: No Highest level of school completed/degree received: high school graduate Do you want help with school or training: No Are you now , , , , never or living with a partner: In a typical week, how many times do you talk on the telephone with family, friends, or neighbors: 3 or more times per week How often do you get together with friends or relatives: 3 or more times per week How often do you attend quaker or moravian services: 4 or more times per year Do you belong to any clubs or organizations such as quaker groups unions, [employer] or athletic groups, or school groups: no Total score: 3 Score interpretation: A score of greater than or equal to 2 indicates the lowest level of social isolation. Little interest or pleasure in doing things: not at all Feeling down, depressed, or hopeless: not at all Feel stressed/tense/nervous/anxious/difficulty sleeping: not at all Due to disability, difficulty making decisions: No Do you think of yourself as: straight/heterosexual Gender Identity: female Medications and Allergies Home Medications and Allergies Allergies Allergy/AdvReac Type Severity Reaction Status Date / Time Penicillins Allergy Unknown Verified 08/09/23 20:46 Home Medications Medication Instructions Recorded Confirmed Type amlodipine 10 mg tablet 10 mg PO DAILY 08/09/23 08/09/23 History febuxostat 80 mg tablet (Uloric) 80 mg PO DAILY 08/09/23 08/09/23 History fluoxetine 20 mg capsule 20 mg PO DAILY 08/09/23 08/09/23 History lisinopril 20 mg tablet 20 mg PO DAILY 08/09/23 08/10/23 History omeprazole 20 mg capsule,delayed 20 mg PO DAILY 08/09/23 08/09/23 History release rosuvastatin 10 mg tablet (Crestor) 10 mg PO DAILY 08/09/23 08/09/23 History tramadol 50 mg tablet 25 mg PO BID PRN pain 08/09/23 08/10/23 History cetirizine 10 mg tablet (24Hour 10 mg PO DAILY 08/10/23 08/10/23 History Allergy) colchicine (gout) 0.6 mg tablet 0.6 mg PO DAILY PRN gout flair 08/10/23 08/10/23 History (Colcrys) Active Medications Active medications: Active Medications Generic Name Dose Route Start Last Admin Trade Name Freq PRN Reason Stop Dose Admin Acetaminophen 650 mg 08/09/23 23:06 08/12/23 06:49 Acetaminophen 325 Mg Tablet PO 650 mg Q6H PRN Administration Fever Atorvastatin Calcium 40 mg 08/10/23 09:00 08/14/23 08:08 Atorvastatin Calcium 40 Mg Tablet PO 40 mg DAILY SOHAIL Administration Cetirizine HCl 10 mg 08/10/23 09:00 08/14/23 08:09 Cetirizine Hcl 10 Mg Tablet PO 10 mg DAILY SOHAIL Administration Colchicine 0.6 mg 08/13/23 12:43 Colchicine 0.6 Mg Tablet PO DAILY PRN gout flair Enoxaparin Sodium 30 mg 08/10/23 23:00 08/13/23 22:48 Enoxaparin Sodium 30 Mg/0.3 Ml Syringe SUBQ Not Given Q24H SOHAIL Febuxostat 80 mg 08/10/23 09:00 08/14/23 09:09 Febuxostat 40 Mg Tablet PO Not Given DAILY SOHAIL Fluoxetine HCl 20 mg 08/10/23 09:00 08/14/23 08:09 Fluoxetine Hcl 20 Mg Capsule PO 20 mg DAILY SOHAIL Administration Hydrocortisone Sodium Succinate 100 mg 08/14/23 12:00 08/14/23 12:38 Hydrocortisone Sodium Succ Pf 100 Mg/2 Ml Vial IVP 100 mg Q8H SOHAIL Administration Hydromorphone HCl 0.5 mg 08/13/23 13:13 Hydromorphone Hcl 0.5 Mg/0.5 Ml Syringe IV Q4H PRN Pain Lactated Ringer's 1,000 mls @ 200 mls/hr 08/13/23 13:20 08/14/23 11:08 Lactated Ringers IV 200 mls/hr .Q5H SOHAIL Administration Propofol 1,000 mg in 100 mls @ 15 mls/hr 08/13/23 15:15 08/14/23 11:59 Diprivan IV 10 mls/hr TITR SOHAIL 10 mls/hr Titration Protocol Norepinephrine 4 mg/ Dextrose 254 mls @ 114.3 mls/hr 08/13/23 21:31 08/14/23 13:52 IV 26 mcg/min ONCE PRN 99.06 mls/hr Blood Pressure - Low Administration Protocol 30 MCG/MIN Ertapenem 0.5 gm/ Sodium 50 mls @ 100 mls/hr 08/14/23 11:00 08/14/23 11:56 Chloride IV Infused Q24H SOHAIL Infusion Vancomycin HCl 1,000 mg/ 250 mls @ 250 mls/hr 08/14/23 12:00 08/14/23 14:04 Sodium Chloride IV Infused Q36H SOHAIL Infusion Heparin Sodium (Beef Lung) 500 500.5 mls @ 0 mls/hr 08/14/23 10:30 08/14/23 10:47 unit/ Sodium Chloride IV 1 mls/hr Q24H SOHAIL Administration Midazolam HCl 2 mg 08/13/23 13:13 08/14/23 12:59 Midazolam Hcl 2 Mg/2 Ml Vial IV Not Given Q4HWA SOHAIL Omeprazole 20 mg 08/10/23 09:00 08/14/23 08:09 Omeprazole 20 Mg Capsule.Dr PO 20 mg DAILY SOHAIL Administration Ondansetron HCl 4 mg 08/09/23 23:06 08/12/23 13:26 Ondansetron Pf 4 Mg/2 Ml Vial IV 4 mg Q4H PRN Administration Nausea And Vomiting Pantoprazole Sodium 40 mg 08/13/23 13:00 08/14/23 13:22 Pantoprazole Sodium 40 Mg Vial IV 40 mg Q24H SOHAIL Administration Promethazine HCl 25 mg 08/12/23 14:07 Promethazine Hcl 25 Mg/Ml Vial IV Q6H PRN Nausea And Vomiting Tramadol HCl 50 mg 08/12/23 12:00 08/12/23 13:26 Tramadol Hcl 50 Mg Tablet PO 50 mg Q6H PRN Administration pain Critical Care I&O Last Vitals Height/Weight/BMI Height, weight, BMI: Height 4 ft 11 in Weight 146 lb 6.191 oz Body Mass Index 29.6 24 Hour Intake/Output 24h intake & output: Intake & Output 08/12/23 08/13/23 08/14/23 08/15/23 07:59 07:59 07:59 07:59 Intake Total 2920 / 2920 1999 / 1999 39393.334 / 85571.334 1852.202 / 1852.202 Output Total 2200 / 2200 735 / 735 1160 / 1160 Balance 2920 / 2920 -200 / -200 59731.334 / 06886.334 692.202 / 692.202 Recent Vital Signs Recent vital signs: Last Vital Signs Temp 98.7 F 08/14/23 06:02 Pulse 106 H 08/14/23 14:37 Resp 20 08/14/23 12:21 BP 156/58 H 08/14/23 14:37 Pulse Ox 92 L 08/14/23 12:21 O2 Del Method Mechanical Ventilator 08/14/23 14:37 FiO2 40 08/14/23 11:10 Exam Constitutional: Vital Signs, click to edit/add: Last Vital Signs Temp 98.7 F 08/14/23 06:02 Pulse 106 H 08/14/23 14:37 Resp 20 08/14/23 12:21 BP 156/58 H 08/14/23 14:37 Pulse Ox 92 L 08/14/23 12:21 O2 Del Method Mechanical Ventil ator 08/14/23 14:37 FiO2 40 08/14/23 11:10 Documenting provider has reviewed patient's vital signs: yes Common normals: no apparent distress General appearance: comfortable HENMT: Other: ETT. Mucus membranes dry. Eye: Common normals: PERRL Chest: Common normals: inspection of chest normal Chest: symmetrical chest wall rise Respiratory: Common normals: normal respiratory effort and no use of accessory muscles Effort & inspection: tachypneic (mild (low 20's) but does not appear to be in distress) Auscultation: diminished lung sounds (but clear bilaterally) Cardio: Rate: tachycardic (mild) Rhythm: regular rhythm GI: Other: Wearing abdominal binder. Absent bowel sounds. : Bladder/kidney exam: catheter in place Catheter type (Female): urethral Extremity: Other: Bilateral SCDs. 2/4 dorsalis pedis pulses. Right radial arterial line. Neuro: Sensorium/orientation: somnolent Psych: Attitude: calm Results Labs Labs: Short CBC 08/14/23 Range/Units 05:13 WBC 37.4 H* (4.0-11.0) 10^3/uL Hgb 8.9 L (12.0-16.0) g/dL Hct 27.6 L (36.0-48.0) % Plt Count 285 (150-450) 10^3/uL BMP 08/14/23 05:13 Sodium 135 L Potassium 3.5 Chloride 105 Carbon Dioxide 17.0 L BUN 26.0 H Creatinine 1.80 H Glucose 159 H Calcium 7.8 L ABG ABG results: 08/14/23 09:05 ABG pH 7.371 ABG pCO2 24.5 L ABG pO2 70.6 L ABG HCO3 14.2 L ABG O2 Saturation 94.6 ABG Base Excess -11.1 L Attestation: I personally reviewed and interpreted this ABG as follows: (Metabolic acidosis) Pulse Oximetry Attestation: I have reviewed the pertinent pulse oximetry results. Assessment and Plan Assessment and Plan (1) Septic shock: Assessment and Plan: 1. Septic shock. Secondary to E. coli associated with underlying SBO/ileal process. Patient is on ertapenem. Awaiting C&S. Continues to have elevated lactate. On norepinephrine. Adding SoluCortef, albumin 50g x1. Monitor MAP - goal >65mmHg. Maintain Hg >7g/dL. Reassessed patient this after noon - norepinephrine weaned down from 26 to 21mcg/min. 2. Acute hypoxic respiratory failure. Ventilator dependent secondary to septic shock. Patient is too unstable with pressors at this time - holding off on sedation vacation/weaning protocol today until pressures are more stable. 3. Acute renal failure secondary to septic shock , on top of chronic kidney disease stage III. Monitoring creatinine closely - anticipate improvement when pressures stabilize more. If it continues to worsen, may need to consider acute hemodialysis, which is not available here @ [facility]. Rechecking BMP. 4. Metabolic (lactic) acidosis associated with septic shock (type B). Respiratory compensation with slight tachypnea. pH is fine at 7.37 currently. Continue to monitor ABG daily. 5. Hypomagnesemia. Recheck Mg2+; replace if low. Additionally, checking PO4-. 6. Iron deficiency anemia. Goal Hb >7g/dL. 7. Small bowel obstruction. POD #1 majority of ileum resected (08/13/2023). Questionable mesenteric mass. Post-op management by general surgery. Plan Patient is critically ill requiring pressors and ventilator. Discussed case with RN, RT, and Dr. Cedrick Spears. Spoke with family. Initially spent 50 minutes on patient. Returned and re-evaluated patient ~ 15:00 for additional 20 minutes. Total critical care time 70 minutes. Attending Attestation - Attending Attestation Attestation: examined this patient, performed the rankin elements of E&M, reviewed pertinent EHR data, personally reviewed pertinent images and discussed management plan with nursing
[2023-08-14 15:30] LABS: Bilirubin Urine NEGATIVE (NEGATIVE); Blood Urine NEGATIVE (NEGATIVE); Clarity Urine CLEAR (CLEAR); Color Urine LT. YELLOW (YELLOW); Glucose Urine UA NEGATIVE (NEGATIVE); Ketones Urine NEGATIVE (NEGATIVE); Leukocyte Esterase Urine NEGATIVE (NEGATIVE); Nitrite Urine NEGATIVE (NEGATIVE); Protein Urine NEGATIVE (NEG/TRACE); Urobilinogen Urine 0.2 EU/dL (0.2-1.0); pH Urine 5.5 (5.0-9.0)
[2023-08-14 15:38] LABS: Bacteria Urine TRACE #/HPF (NONE SEEN); Cast Seen? NONE SEEN #/LPF (NONE SEEN); Crystals Seen? None Seen #/HPF (None Seen); Mucus Urine NONE SEEN (NONE SEEN); RBC Urine 0-2 #/HPF (0-2); Squamous Epithelial Cell Urine RARE #/LPF (NONE/RARE); WBC Urine NONE SEEN #/HPF (NONE SEEN)
[2023-08-14 15:38] LABS: Anion Gap 20.8; BUN Creatinine Ratio 15.1; Calcium 8.1 mg/dL (8.5-10.1); Carbon Dioxide 14.3 mmol/L (21.0-32.0); Chloride 102 mmol/L (98-107); Estimated GFR (African America 32 (>=60); Estimated GFR (Non-African Ame 26 (>=60); Glucose 166 mg/dL (74-106); Potassium 3.1 mmol/L (3.5-5.1); Sodium 134 mmol/L (136-145)
--- NOTE | 2023-08-14 15:47 | P.CN_ITS ---
Consult Note: HPI Data of Consult Patient: new to practice Consult date: 08/14/23 Requesting Physician: Curt Sood MD Primary Care Provider: SOHAN QUIROZ Consult Narrative Reason for consult: Elevated BNP Narrative: 77 yo female currently remains in ICU on levophed infusion, IV fluid bolus', intubated on vent s/p recent surgery for SBO. Family is at bedside. Family reports that pt does not have a personal h/o cardiac disease, or h/o having heart surgery or cardiac procedures. Reports typically pt is fairly healthy. Currently general surgery and critical care consulted and pt is being treated for cardiogenic shock, sepsis- most likely r/t e coli, hypotension, resp failure on vent. cc:: CC: Curt Sood MD Review of Systems ROS Narrative Pt intubated/ vent with propafol sedation PFSH [facility] Medical History (Updated 08/14/23 @ 13:02 by Jerilyn Spears DO) Dyslipidemia ?E78.5 - Hyperlipidemia, unspecified (ICD-10) Gout ?M10.9 - Gout, unspecified (ICD-10) Nausea and vomiting ?R11.2 - Nausea with vomiting, unspecified (ICD-10) Family History Mother Family history of CHF (congestive heart failure) Family history of COPD (chronic obstructive pulmonary disease) Family history of diabetes mellitus Family history of cancer Family history of hypertension Social History Within the past year, how often did you have a drink containing alcohol: never Within the past year, how often did you have six or more drinks on one occasion: never Score interpretation: A score less than 3 is consistent with normal alcohol consumption. Smoking status: Never smoker Second hand tobacco smoke exposure: No Non-prescribed substance use: denies use Previous occupational history: Housewife. Known occupational exposures/hazards: No Highest level of school completed/degree received: high school graduate Do you want help with school or training: No Are you now , , , , never or living with a partner: In a typical week, how many times do you talk on the telephone with family, friends, or neighbors: 3 or more times per week How often do you get together with friends or relatives: 3 or more times per week How often do you attend methodist or latter day services: 4 or more times per year Do you belong to any clubs or organizations such as methodist groups unions, fraternal or athletic groups, or school groups: no Total score: 3 Score interpretation: A score of greater than or equal to 2 indicates the lowest level of social isolation. Little interest or pleasure in doing things: not at all Feeling down, depressed, or hopeless: not at all Feel stressed/tense/nervous/anxious/difficulty sleeping: not at all Due to disability, difficulty making decisions: No Do you think of yourself as: straight/heterosexual Gender Identity: female Meds Home Medications and Allergies Home Medications Medication Instructions Recorded Confirmed Type amlodipine 10 mg tablet 10 mg PO DAILY 08/09/23 08/09/23 History febuxostat 80 mg tablet (Uloric) 80 mg PO DAILY 08/09/23 08/09/23 History fluoxetine 20 mg capsule 20 mg PO DAILY 08/09/23 08/09/23 History lisinopril 20 mg tablet 20 mg PO DAILY 08/09/23 08/10/23 History omeprazole 20 mg capsule,delayed 20 mg PO DAILY 08/09/23 08/09/23 History release rosuvastatin 10 mg tablet (Crestor) 10 mg PO DAILY 08/09/23 08/09/23 History tramadol 50 mg tablet 25 mg PO BID PRN pain 08/09/23 08/10/23 History cetirizine 10 mg tablet (24Hour 10 mg PO DAILY 08/10/23 08/10/23 History Allergy) colchicine (gout) 0.6 mg tablet 0.6 mg PO DAILY PRN gout flair 08/10/23 08/10/23 History (Colcrys) Allergies Allergy/AdvReac Type Severity Reaction Status Date / Time Penicillins Allergy Unknown Verified 08/09/23 20:46 Exam Constitutional Vital Signs, click to edit/add: Last Vital Signs Temp 98.7 F 08/14/23 06:02 Pulse 109 H 08/14/23 15:20 Resp 23 08/14/23 15:20 BP 156/58 H 08/14/23 14:37 Pulse Ox 93 L 08/14/23 15:20 O2 Del Method Mechanical Ventilator 08/14/23 14:37 FiO2 40 08/14/23 15:20 Common normals: no apparent distress General appearance: patient mechanically ventilated Nutritional appearance: obese Other: awakens to tactile stimuli and squeezes hand to command Respiratory Common normals: normal respiratory effort (Per vent resp, Coarse lung sounds throughout, no rales, rhonchi or wheezes) Cardio Common normals: no JVD, regular rate, regular rhythm, S1 normal heart sound, S2 normal heart sound, no gallops, no clicks, no murmurs, no rub and peripheral pulses 2+ throughout Peripheral pulses: radial pulses present, posterior tibial pulses present and dorsalis pedis pulses present Extremity Common normals: no clubbing, cyanosis or edema (1-2 + pitting edema BLE and BUE) General: edema; no cyanosis Neuro Sensorium/orientation: other (sedated, intubated to vent) Results Labs Labs: Short CBC 08/14/23 Range/Units 05:13 WBC 37.4 H* (4.0-11.0) 10^3/uL Hgb 8.9 L (12.0-16.0) g/dL Hct 27.6 L (36.0-48.0) % Plt Count 285 (150-450) 10^3/uL BMP 08/14/23 08/14/23 05:13 15:10 Sodium 135 L 134 L Potassium 3.5 3.1 L Chloride 105 102 Carbon Dioxide 17.0 L 14.3 L BUN 26.0 H 28.0 H Creatinine 1.80 H 1.86 H Glucose 159 H 166 H Calcium 7.8 L 8.1 L Urine 08/09/23 Range/Units 15:13 Urine Color Lt. yellow (YELLOW) Urine Clarity Clear (CLEAR) Urine pH 5.5 (5.0-9.0) Ur Specific [place] 1.010 (1.005-1.025) Urine Protein Negative (NEG/TRACE) mg/dL Urine Glucose (UA) Negative (NEGATIVE) mg/dL ABG ABG results: 08/14/23 09:05 ABG pH 7.371 ABG pCO2 24.5 L ABG pO2 70.6 L ABG HCO3 14.2 L ABG O2 Saturation 94.6 ABG Base Excess -11.1 L Imaging Chest x-ray: Attestation: I have reviewed the pertinent imaging results. Radiologist's impression: 08/14/23 FINDINGS: LUNGS: Low lung volumes. Right basilar infiltrate. The left lung is clear. Endotracheal tube tip is 4.4 cm above the kristin VASCULATURE: No increased pulmonary vasculature. PLEURA: No pneumothorax, effusion, or pleural thickening. CARDIAC: No cardiomegaly or cardiac silhouette abnormality. MEDIASTINUM: No visible mass or adenopathy. BONES: No fracture or visible bone lesion. OTHER: Enteric tube extends off the field of view. Left Port-A-Cath tip projects over the mid superior vena cava XR/XR chest 1V IMPRESSION: Right basilar infiltrate Electronically authenticated by: JUN ROJAS Date: 08/14/2023 07:04 Assessment and Plan Assessment and Plan (1) Septic shock: Assessment and Plan: Currently managed by general surgery and Critical care (2) Cardiogenic postoperative shock: Assessment and Plan: Currently remains on levophed infusion, DC'd amlodipine and lisinopril until pt is normotensive and stable LActate elevated but slightly improving WBC 37 Awaiting echocardiogram results to assess cardiac function BNP elevated 24,941- may need diuresis soon- but post op surgery is giving IV fluids currently Monitor renal function increasing 1.8 CR today- continue to watch- may be increasing with fluid overload. (3) Acute respiratory failure: Assessment and Plan: Managed per primary service Qualifiers: Respiratory failure complication: hypoxia Qualified Code(s): J96.01 - Acute respiratory failure with hypoxia (4) Small bowel obstruction: Assessment and Plan: managed per surgery (5) ANA (acute kidney injury): Assessment and Plan: continue to monitor renal function, electrolytes (6) Stage 3a chronic kidney disease: (7) HTN (hypertension): Assessment and Plan: hypotensive currently with sepsis Plan as above. Will D/w Dr Apple- he is in [facility] tomorrow.
[2023-08-14 16:07] LABS: Magnesium 1.6 mg/dL (1.8-2.4); Phosphorus 3.3 mg/dL (2.6-4.7)
[2023-08-14] MEDS: NOREPINEPHRINE BITARTRATE 4 MG in DEXTROSE 5 % IN WATER 250 ML 38.1 MG IV (17:54)
[2023-08-14] MEDS: AMINO ACIDS IV (18:10)
[2023-08-14] MEDS: MULTIVIT INFUSN ADULT K IV (18:10)
[2023-08-14] MEDS: DEXTROSE 20% IV (18:10)
[2023-08-14] MEDS: MAGNESIUM SULFATE/D5W 1 GM/100 ML PIGGYBACK IV (18:10)
[2023-08-14] MEDS: PROPOFOL 1,000 MG/100 ML VIAL 10 MG IV (18:56)
[2023-08-14] MEDS: POTASSIUM CHLORIDE 40 MEQ in 0.9 % SODIUM CHLORIDE 250 ML 67.5 MEQ IV (19:57)
[2023-08-14] MEDS: HYDROMORPHONE HCL 0.5 MG/0.5 ML SYRINGE IV (20:00)
[2023-08-14 20:15] LABS: Glucometer 259 mg/dL (74-106)
[2023-08-14] MEDS: ENOXAPARIN SODIUM 30 MG/0.3 ML SYRINGE SUBQ (23:42)
[2023-08-15] VITALS (152 sets, daily range): BP systolic 75–147; BP diastolic 36–65; PULSE 60–113; RESP 14–91; TEMP 36.6–37.7; O2SAT 54–99
[2023-08-15] MEDS: HYDROMORPHONE HCL 0.5 MG/0.5 ML SYRINGE IV ×2 (00:12→08:20)
[2023-08-15] MEDS: NOREPINEPHRINE BITARTRATE 4 MG in DEXTROSE 5 % IN WATER 250 ML 7.62 MG IV ×2 (00:52→19:42)
[2023-08-15] MEDS: PROPOFOL 1,000 MG/100 ML VIAL 10 MG IV (04:19)
[2023-08-15] MEDS: HYDROCORTISONE SODIUM SUCC PF 100 MG/2 ML VIAL IVP ×3 (04:20→22:28)
[2023-08-15 05:09] LABS: Basophils Percent Auto 0.3 % (0.2-2.0); Immature Granulocytes Abs Auto 0.69 10^3/uL (0.00-0.03); Immature Granulocytes Pct Auto 8.8 % (0.0-0.5); Lymphocytes Absolute Auto 0.3 10^3/uL (1.2-3.8); Lymphocytes Percent Auto 3.2 % (20.5-60.0); Mean Corpuscular HGB Conc 32.8 g/dL (29.9-35.2); Mean Corpuscular Hemoglobin 26.4 pg (26.7-34.0); Mean Corpuscular Volume 80.6 fL (81.0-99.0); Mean Platelet Volume 10.4 fL (9.5-13.5); Monocytes Absolute Auto 0.3 10^3/uL (0.3-0.8); Monocytes Percent Auto 3.7 % (1.7-12.0); Neutrophils Absolute Auto 6.6 10^3/uL (1.4-6.5); Platelet Count 102 10^3/uL (150-450); Red Blood Count 2.16 10^6/uL (4.20-5.40); Red Cell Distribution Width 14.9 % (11.0-15.0); White Blood Count 7.9 10^3/uL (4.0-11.0)
[2023-08-15 05:14] LABS: Hematocrit 17.4 % (36.0-48.0); Hemoglobin 5.7 g/dL (12.0-16.0)
[2023-08-15 05:17] LABS: Anion Gap 13.2; BUN Creatinine Ratio 17.6; Calcium 8.4 mg/dL (8.5-10.1); Carbon Dioxide 18.3 mmol/L (21.0-32.0); Chloride 104 mmol/L (98-107); Estimated GFR (African America 33 (>=60); Estimated GFR (Non-African Ame 27 (>=60); Glucose 296 mg/dL (74-106); Potassium 3.5 mmol/L (3.5-5.1); Sodium 132 mmol/L (136-145)
[2023-08-15 05:18] LABS: Magnesium 1.8 mg/dL (1.8-2.4)
[2023-08-15 05:40] LABS: ABG PCO2 29.7 mmHg (35.0-45.0); Allen Test POSITIVE (POSITIVE); Base Excess ABG -7.9 mmol/L (-2.0-2.0); Fractionated Inspired Oxygen 50 %; HCO3 ABG 17.3 mmol/L (22.0-26.0); O2 Mode VENTILATOR; Oxygen Saturation ABG 92.5 %; PO2 ABG 64.2 mmHg (80.0-100.0); pH ABG 7.374 (7.350-7.450)
[2023-08-15 05:41] LABS: Puncture Site ART LINE; Rate 11; Tidal Volume 550; Vent Mode A/C
--- NOTE | 2023-08-15 06:11 | PM.GSPN ---
Progress Note: A&P Assessment and Plan (1) Septic shock: (2) Cardiogenic postoperative shock: (3) Acute respiratory failure: Qualifiers: Respiratory failure complication: hypoxia Qualified Code(s): J96.01 - Acute respiratory failure with hypoxia (4) Small bowel obstruction: (5) ANA (acute kidney injury): (6) Stage 3a chronic kidney disease: (7) HTN (hypertension): (8) Hyponatremia: (9) Thrombocytopenia: Plan continue supportive care await blood cultures and continue nutrition. No flatus or bowel sounds therefore we will not consider for enteral nutrition at this time. Transfuse blood products to maintain hemoglobin greater than seven. Daughter Lela at bedside AND DISCUSSED WITH HER.. 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 Urine output picked up during the night and she had 1300 mL since 7 PM output. LEVOPHED was down at two mics per kilogram. Hemoglobin dropped from 8.9 g to 5.7 g and platelets are low as well at a hundred two thousand. Do not suspect any BLEEDING but will be receiving red blood cells. Sodium also low at one thirty-two.; Patient only on TPN for IV fluids currently. Exam Constitutional Vital Signs, click to edit/add: Last Vital Signs Temp 97.9 F 08/15/23 04:47 Pulse 88 08/15/23 05:00 Resp 24 08/15/23 04:47 BP 90/36 L 08/15/23 04:47 Pulse Ox 90 L 08/15/23 05:00 O2 Del Method Mechanical Ventilator 08/15/23 04:47 O2 Flow Rate 40 08/14/23 23:52 FiO2 50 08/15/23 04:47 Documenting provider has reviewed patient's vital signs: yes Common normals: no apparent distress Exam limitations: altered mental status (sedated due to ventilator) GI Common normals: soft to palpation ([employer] with no bowel sounds present) Urinary Catheter Management Urinary Catheter Management Urethral: Cath placed during this visit: yes Urethral indwelling: Yes Reason for continuing: surgical procedure Insertion date: 08/13/23
--- NOTE | 2023-08-15 07:59 | RESP.RT ---
Increased to 5 due to patient desaturation.
--- NOTE | 2023-08-15 08:01 | RESP.RT ---
Addendum entered by Charla Palumbo, TELEPHONE EXCHANGE OPERATOR 08/15/23 09:06: Pushed ET tube to 18cm@lip. Original Note: Had increased pt to 100% initially, with increase of PEEP to 5, then weaned down to 65%
[2023-08-15] MEDS: CETIRIZINE HCL 10 MG TABLET PO (08:20)
[2023-08-15] MEDS: OMEPRAZOLE 20 MG CAPSULE.DR PO (08:20)
[2023-08-15] MEDS: FLUOXETINE HCL 20 MG CAPSULE PO (08:20)
[2023-08-15] MEDS: ATORVASTATIN CALCIUM 40 MG TABLET PO (08:20)
[2023-08-15] MEDS: 0.9 % SODIUM CHLORIDE 10 ML SYRINGE - SALINE FLUSH 500 ML IV (08:26)
--- NOTE | 2023-08-15 08:37 | PM.PN ---
Progress Note: Subjective Subjective Interval history: patient remains intubated. Lactate level is improving was down to 1.2. 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 arterial line in place and MAP's 55, levophed was stopped and now back on. Patient has a triple lumen PICC line in place. echocardiogram showed some diastolic dysfunction, seems to be requiring more oxygen on Vent today, chest X-ray negative for pulmonary edema. Patient's son and daughter Nallely at bedside at time of exam Exam Narrative Exam Narrative: Skin: no visible rashes, or ulcers Head: atraumatic, acephalic Heart: Normal rate and rhythm, no murmurs/rubs/gallops Lungs: no audible wheezes, bilateral crackles Abdomen: diminished bowel sounds, no audible in the lower quadrants, abdominal binder in place, no distension Musculoskeletal: no swelling bilateral lower extremities Neuro: CN II-X grossly intact, normal sensation upper and lower extremities Constitutional Vital Signs, click to edit/add: Last Vital Signs Temp 97.9 F 08/15/23 04:47 Pulse 86 08/15/23 07:10 Resp 22 08/15/23 07:10 BP 93/52 08/15/23 06:00 Pulse Ox 84 L 08/15/23 07:40 O2 Del Method Mechanical Ventilator 08/15/23 07:10 O2 Flow Rate 55 08/15/23 07:10 FiO2 65 08/15/23 07:40 General appearance: patient mechanically ventilated Progress Note: Objective Labs Labs: Short CBC 08/15/23 Range/Units 04:00 WBC 7.9 (4.0-11.0) 10^3/uL Hgb 5.7 L* D (12.0-16.0) g/dL Hct 17.4 L* (36.0-48.0) % Plt Count 102 L (150-450) 10^3/uL BMP 08/14/23 08/15/23 15:10 04:00 Sodium 134 L 132 L Potassium 3.1 L 3.5 Chloride 102 104 Carbon Dioxide 14.3 L 18.3 L BUN 28.0 H 32.0 H Creatinine 1.86 H 1.82 H Glucose 166 H 296 H Calcium 8.1 L 8.4 L Urine 08/09/23 Range/Units 15:13 Urine Color Lt. yellow (YELLOW) Urine Clarity Clear (CLEAR) Urine pH 5.5 (5.0-9.0) Ur Specific [place] 1.010 (1.005-1.025) Urine Protein Negative (NEG/TRACE) mg/dL Urine Glucose (UA) Negative (NEGATIVE) mg/dL Progress Note: A&P Assessment and Plan (1) Septic shock: Assessment and Plan: continue vancomycin and Invanz, lactate normal, Leukocytosis improved? but may be a lab error/dilutional affect. Hypotensive still. Peritoneal cultures showing Ecoli growth, sensitive to Ertapenum. Patient with triple lumen and art line. Good urine output (2) Cardiogenic postoperative shock: Assessment and Plan: elevated proBNP of twenty-four thousand, echocardiogram showed some increased mild right sided pressures, mild diastolic dysfunction, cardiology consult, most likely from intensive IV fluids per sepsis protocol and possible cardiogenic shock from septic shock. right basilar infiltrate seen on Chest Xray no pulmonary edema (3) Acute respiratory failure: Assessment and Plan: pulmonary consult for vent management, patient remained intubated/sedated, worsening ABGs today Qualifiers: Respiratory failure complication: hypoxia Qualified Code(s): J96.01 - Acute respiratory failure with hypoxia (4) Small bowel obstruction: Assessment and Plan: postop day #2 from small bowel colon resection. General surgery following. Elevated white blood cell count, but improving lactate level, sufficient urine output. Concern for possible ischemic bowel versus perforation if patient does not improve, drop in Hemoglobin today, possible CT. (5) Anemia requiring transfusions: Assessment and Plan: hb 5.7, giving 3 units, stop lovenox, considering CT abdomen. increase protonix for 40mg IV BID (6) ANA (acute kidney injury): Assessment and Plan: patient has underlying chronic kidney disease but worse due to sepsis, continue IV fluid hydration (7) Hyponatremia: Assessment and Plan: getting TPN (8) Thrombocytopenia: Assessment and Plan: monitor (9) Hypomagnesemia: Assessment and Plan: replace as needed (10) Malnutrition of moderate degree: Assessment and Plan: continue TPN but do to electrolyte, sodium and now glucose, decrease rate to 42 cc/hr Plan patient is a full code Lovenox for DVT prophylaxis due to patient's worsening status requiring ICU care, will require multiple more days of inpatient stay
[2023-08-15] MEDS: MULTIVIT INFUSN,ADULT 4,VIT K 10 ML in AA 5 %/CALCIUM/LYTES/DEXT 20 % 1,000 ML 60 ML IV (09:10)
[2023-08-15 09:16] LABS: Lactate/Lactic Acid 1.2 mmol/L (0.4-2.0)
--- NOTE | 2023-08-15 10:46 | RESP.RT ---
Instilled NSS and bag suctioned
[2023-08-15] MEDS: HEPARIN SODIUM,PORCINE/NS/PF 1,000 UNIT/500 ML IV.SOLN 1 UNIT IV (10:50)
--- NOTE | 2023-08-15 11:32 | CM.NOTE ---
Pt remains on ventilator, Dr. Spears discussed in depth with pt family at bedside the plan of care and updated on lab results and testing. Pt will also get 3 units PRBC today.
[2023-08-15] MEDS: ERTAPENEM SODIUM 0.5 GM in 0.9 % SODIUM CHLORIDE 50 ML IV (11:34)
[2023-08-15] MEDS: PROPOFOL 1,000 MG/100 ML VIAL 12 MG IV (11:56)
--- NOTE | 2023-08-15 12:04 | XR_ITS ---
[address] [address] Patient Name: NADJA MCGRAW MRN: [id number] date: 1945 Sex: F Assigned Patient Location: ICU Current Patient Location: ICU Accession/Order Number: [id number] Exam Date: 08/15/2023 12:15 Report Date: 08/15/2023 12:28 At the request of: MILES MAZARIEGOS Procedure: XR chest 1V EXAM: XR chest 1V HISTORY: Worsening hypoxoia, on vent COMPARISON: 08/14/2023 TECHNIQUE: AP view of the chest. Findings/impression: Increasing right suprahilar and left infrahilar airspace disease. Stable tubes and lines. No pneumothorax. No pleural effusion. Electronically authenticated by: CIARA CRUZ Date: 08/15/2023 12:28
[2023-08-15 12:05] LABS: Glucometer 255 mg/dL (74-106)
--- NOTE | 2023-08-15 12:56 | PM.CCPN1 ---
Critical Care - PN: Subjective Date of Service Date of service: 08/15/23 Subjective Interval history: Patient has improved from a pressor perspective - norepinephrine has been weaned off and MAP is maintaining >65mmHg without support. Renal function has not worsened, but it has not improved either, holding ~1.82. Hb dropped to 5.7g/dL this AM - she is receiving PRBC. TPN was started prior to this morning. The major issue is worsening oxygenation - having to increase FiO2 throughout the morning - began prior to transfusion. Spoke with RT - has suctioned out secretions, but I did not have any when I personally deep suctioned the ETT. CXR shows increasing bilateral hilar fullness. Critical Care - PN: Meds Active Infusions Active infusions: Norepinephrine gtt stopped Pertinent Medications Meds reviewed: I have reviewed the active medications in the EHR Exam Constitutional Vital Signs, click to edit/add: Last Vital Signs Temp 98.7 F 08/15/23 11:58 Pulse 84 08/15/23 11:58 Resp 16 08/15/23 11:58 BP 131/51 08/15/23 11:58 Pulse Ox 90 L 08/15/23 11:58 O2 Del Method Mechanical Ventilator 08/15/23 11:58 O2 Flow Rate 55 08/15/23 11:58 FiO2 80 08/15/23 11:58 Documenting provider has reviewed patient's vital signs: yes Common normals: no apparent distress HENMT Other: 7.0 ETT Chest Common normals: inspection of chest normal Chest: symmetrical chest wall rise Respiratory Auscultation: rhonchi upper bilaterally (New from yesterday) Cardio Rate: regular rate Rhythm: regular rhythm Bladder/kidney exam: catheter in place Catheter type (Female): urethral Other: Abdominal binder present Extremity Other: Developing some non-pitting edema of the upper extremities > lower. BLE SCDs. Neuro Other: Sedated. Grimaces and attempts to localize to noxious stimuli. Psych Other: Sedated Critical Care - PN: Obj Data Ventilator Management ?Ventilator management: Vt 550mL, FiO2 80%, PEEP 5. RR currently breathing at ~23/min (patient initiated). Kenyon Kenyon catheter?: Yes Urinary Catheter Management Urinary Catheter Management Urethral: Cath placed during this visit: yes Urethral indwelling: Yes Reason for continuing: surgical procedure Insertion date: 08/13/23 Restraints Assessments Restraints Assessments Restraint Assessment: Yes Face to Face Assessment: Yes Discontinue Restraint: No Critical Care - PN: A&P Assessment and Plan (1) Septic shock: Assessment and Plan: 1. Septic shock. Secondary to E. coli associated with underlying SBO/ileal process. Shock improved - weaned off norepinephrine. Continue to monitor very closely...still in severe sepsis - acidosis present. 2. Acute hypoxic respiratory failure. Ventilator dependent secondary to septic shock. Oxygenation is worsening - increased FiO2 to 80% and PEEP to 10. Increased bilateral hilar fullness - question intravascular volume overload with TPN and PRBC on top of it. Other considerations are mucus plugging, TRALI, and ARDS. Now that patient is not on pressors, will give Lasix 40mg IVP to see if that improves her respiratory status. 3. Acute renal failure secondary to septic shock , on top of chronic kidney disease stage III. Creatinine holding ~1.8. Monitor closely. 4. Metabolic (lactic) acidosis associated with septic shock (type B). Respiratory compensation. Monitoring closely for propofol infusion syndrome - urine is nice yellow color so far. 5. Hypokalemia. Monitor K+ especially after diuretics. 6. Hypomagnesemia. Monitor Mg2+ 7. Iron deficiency anemia. Significant drop in Hb over night - transfusing PRBC. 8. Small bowel obstruction. POD #2 majority of ileum resected (08/13/2023). Post-op mgmt by general surgery. Fall Risk Details Bryant Fall Scale Risk Level: High Fall Risk Current medications: Current Medications Furosemide (Furosemide 40 Mg/4 Ml Vial) 40 mg IVP ONCE ONE Stop: 08/15/23 12:45 Hydrocortisone Sodium Succinate (Hydrocortisone Sodium Succ Pf 100 Mg/2 Ml Vial) 100 mg IVP Q8H [facility] Last Admin: 08/15/23 11:34 Dose: 100 mg Hydromorphone HCl (Hydromorphone Hcl 0.5 Mg/0.5 Ml Syringe) 0.5 mg IV Q4H PRN PRN Reason: Pain Last Admin: 08/15/23 08:20 Dose: 0.5 mg Propofol (Diprivan) 1,000 mg in 100 mls @ 15 mls/hr IV TITR SOHAIL; Protocol Last Admin: 08/15/23 11:56 Dose: 12 mls/hr, 12 mls/hr Ertapenem 0.5 gm/ Sodium (Chloride) 50 mls @ 100 mls/hr IV Q24H [facility] Last Infusion: 08/15/23 12:38 Dose: Infused Vancomycin HCl 1,000 mg/ (Sodium Chloride) 250 mls @ 250 mls/hr IV Q36H [facility] Last Infusion: 08/14/23 14:04 Dose: Infused Norepinephrine 4 mg/ Dextrose 254 mls @ 7.62 mls/hr IV ONCE PRN; Protocol PRN Reason: Blood Pressure - Low Last Titration: 08/15/23 08:32 Dose: 1 mcg/min, 3.8 mls/hr Multivitamins 10 ml/ Amino (Acids/Electrolytes) 1,010 mls @ 60 mls/hr IV Q17H [facility] Last Admin: 08/15/23 09:10 Dose: 60 mls/hr Heparin Sodium/Sodium Chloride (Heparin 1,000 Unit/500 Ml-Ns) 1,000 unit in 500 mls @ 1 mls/hr IV Q24H [facility] Last Admin: 08/15/23 10:50 Dose: 1 mls/hr Potassium Chloride (Potassium Cl 10 Meq/100 Ml Raquel) 10 meq in 100 mls @ 100 mls/hr IV Q1H PRN PRN Reason: K+ <3.5 Stop: 08/22/23 23:59 Insulin Aspart (Insulin Aspart 300 Unit/3 Ml Pen) 3 - 15 unit SUBQ [facility]; Protocol Midazolam HCl (Midazolam Hcl 2 Mg/2 Ml Vial) [facility] Last Admin: 08/15/23 11:43 Dose: Not Given Ondansetron HCl (Ondansetron Pf 4 Mg/2 Ml Vial) 4 mg IV Q4H PRN PRN Reason: Nausea And Vomiting Last Admin: 08/12/23 13:26 Dose: 4 mg Pantoprazole Sodium (Pantoprazole Sodium 40 Mg Vial) 40 mg IV Q12H [facility] Promethazine HCl (Promethazine Hcl 25 Mg/Ml Vial) 25 mg IV Q6H PRN PRN Reason: Nausea And Vomiting Disposition Disposition: remain in unit Critical Care Bundles Critical care bundles: restrain status and DVT prophylaxis Time Spent with Patient Critical care time: 30 - 74 mins Time spent: Patient remains critically ill requiring intensive care unit services. Worsening respiratory status despite ventilator support. Discussed case with RN, RT, family @ bedside. 45 minutes critical care time.
--- NOTE | 2023-08-15 12:59 | NUTR.NU ---
TPN currently infusing @ 62 mL/hour CF. Leanne's lab results have worsened: Hgb 5.7L, Hct 17.4L, Na+ 132L, BS 296H. Recommend reduce TPN to 42 mL/hour; TV 1L daily. Will review labs again tomorrow and continue to follow PRN.
[2023-08-15] MEDS: FUROSEMIDE 40 MG/4 ML VIAL IVP (13:06)
[2023-08-15] MEDS: PANTOPRAZOLE SODIUM 40 MG VIAL IV (13:20)
[2023-08-15] MEDS: MULTIVIT INFUSN,ADULT 4,VIT K 10 ML in AA 5 %/CALCIUM/LYTES/DEXT 20 % 1,000 ML 40 ML IV (13:30)
[2023-08-15 17:16] LABS: Hematocrit 30.9 % (36.0-48.0); Hemoglobin 10.3 g/dL (12.0-16.0); Mean Corpuscular HGB Conc 33.3 g/dL (29.9-35.2); Mean Corpuscular Hemoglobin 27.6 pg (26.7-34.0); Mean Corpuscular Volume 82.8 fL (81.0-99.0); Platelet Count 126 10^3/uL (150-450); Red Blood Count 3.73 10^6/uL (4.20-5.40); Red Cell Distribution Width 15.3 % (11.0-15.0); White Blood Count 15.5 10^3/uL (4.0-11.0)
[2023-08-15 17:18] LABS: Anion Gap 13.3; BUN Creatinine Ratio 19.6; Calcium 9.1 mg/dL (8.5-10.1); Carbon Dioxide 19.1 mmol/L (21.0-32.0); Chloride 103 mmol/L (98-107); Estimated GFR (African America 33 (>=60); Estimated GFR (Non-African Ame 27 (>=60); Glucose 197 mg/dL (74-106); Potassium 3.4 mmol/L (3.5-5.1); Sodium 132 mmol/L (136-145)
[2023-08-15] MEDS: INSULIN ASPART 300 UNIT/3 ML PEN SUBQ (17:30)
[2023-08-15] MEDS: POTASSIUM CHLORIDE IN WATER 10 MEQ/100 ML PIGGYBACK 100 MEQ IV ×3 (17:34→18:48)
[2023-08-15 17:47] LABS: Anisocytosis 1+; Lymphocytes Absolute Manual 0.31 10^3/uL (1.20-3.80); Microcytosis 1+; Monocytes Absolute Manual 1.08 10^3/uL (0.30-0.80); Segmented Neut Absolute Manual 12.09 10^3/uL (1.4-6.5)
--- NOTE | 2023-08-15 17:53 | ECG_ITS ---
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
--- NOTE | 2023-08-15 17:58 | XR_ITS ---
The [address] [address] Patient Name: NADJA MCGRAW MRN: [id number] date: 1945 Sex: F Assigned Patient Location: ICU Current Patient Location: ICU Accession/Order Number: [id number] Exam Date: 08/15/2023 18:00 Report Date: 08/15/2023 18:31 At the request of: MILES MAZARIEGOS Procedure: XR chest 1V CXR HISTORY: Shortness of breath COMPARISON: 08/15/2023 CXR TECHNIQUE: 1 view chest submitted for review. FINDINGS: Left PICC line with tip overlying the SVC. ETT in adequate position. Lung volumes are low with diffuse air space opacities with left sided effusion. The cardiac silhouette measures prominent. Pulmonary vascularity is prominent. Osseous structures do not demonstrate any acute abnormality. XR/XR chest 1V IMPRESSION: Lung volumes are low with diffuse air space opacities, increased compared to prior exam concerning for pneumonia versus fluid . Electronically authenticated by: COSTA GONZALEZ Date: 08/15/2023 18:31
[2023-08-15 18:12] LABS: ABG PCO2 48.5 mmHg (35.0-45.0); Allen Test POSITIVE (POSITIVE); Base Excess ABG -8.8 mmol/L (-2.0-2.0); Fractionated Inspired Oxygen 100 %; HCO3 ABG 19.1 mmol/L (22.0-26.0); PO2 ABG 52.9 mmHg (80.0-100.0); Puncture Site RR
[2023-08-15 18:13] LABS: O2 Mode AMBU BAG; pH ABG 7.204 (7.350-7.450)
--- NOTE | 2023-08-15 18:31 | PC.NURSE ---
1730- Patient repositioned to right side. SPO2 decreases to low to mid 80's . FIO2 increased from 80 to 100%. Patient repositioned to back. Daughter at bedside. Respiratory notified. 1740- Dr Ornelas and Respiratory present. SPO2 82% with 100% amboo bag. Vent chaanges made per Dr Ornelas 1750- Attemps made to suction without results. Patient color garibay and mottled. SPo2 76% 1800- Dr Ornelas interchanges ET tube from size 7 to size 8. SPO2 72% with 100% amboo bag. 180- PCXR done. 1820 Dr Ornelas speaks with family. Full code continues. Patient with agonal respirations. Color dusky. SPO2 62% 1840- Dr Ornelas at bedside with Bronchoscope
[2023-08-15 18:32] LABS: Troponin I High Sensitivity 121.4 pg/mL (4.0-51.3)
[2023-08-15] MEDS: PROPOFOL 1,000 MG/100 ML VIAL 4 MG IV (20:43)
--- NOTE | 2023-08-15 20:52 | PM.CCEN ---
Critical Care Event Note Summary Code activated: No Narrative: I was contacted by RT who told me that the patient was continuing to desaturate on the ventilator. SpO2 was dropping <89% despite FiO2 increased to 80%. I went with the RT and reassessed the patient. She continued to have diffuse rhonchi. RN in the room stated the patient had about 2L output with the Lasix, and the PRBC had finished infusing. I adjusted the ventilator and increased the PEEP to 10. The patient's oxygenation improved slightly to ~92%, but then dropped back down again. I then changed her to a pressure control mode to see if that would improve her oxygenation - she oddly was breathing at an inverse I:E ratio on volume control (this is not physiologic). She was changed to pressure control, but tidal volumes dropped dramatically and SpO2 dropped. She was changed immediately back to volume control. SpO2 improved some but then again dropped <89%. PEEP increased to 15, but SpO2 continued to drop. We discussed transporting the patient down for a STAT CTA to evaluate for a pulmonary embolism, but this was complicated by the patient's acute renal failure on top of chronic kidney disease (repeat creatinine was ~1.78), and her respiratory status was becoming unstable. Due to these reasons, I did not order a CTA; instead, I reordered a CXR. I personally reviewed the imaging which showed further progression of infiltrates - on the right there were air bronchograms and a rightward shift of the main bronchi and ETT (which was ~3cm above the main kristin) which was suspicious for atelectasis and possible mucus plugging. The RT had suctioned a large amount of secretions endotrachially from the patient earlier today. Repeat ABG showed development of acute hypercapnic respiratory failure with pH ~ 7.2 and pCO2 ~ 48. Though a pCO2 of 48 is not that significant normally, her pH this AM was ~7.37 and pCO2 in the 20's, indicating appropriate compensation earlier in the day. Oxygenation continued to drop. At this point, I requested that the RT begin to manually bag her. This slightly improved her oxygenation, but it continued to drop to around 70%. A PEEP valve was added and eventually titrated to a PEEP of 15 which helped to stop further desaturating for the time being. She was intubated with a 7.0 ETT which limited my ability to use a standard bronchoscope to view the airways. I discussed the case with the patient's daughter, who was present in the room, as well as her son, Jin who is a family physician in [place], about an emergent endotracheal tube exchange via bougie. The risk of worsening hypoxia was explained to them, as I would have to disconnect the ventilator circuit. They both verbalized agreement. I successfully inserted the bougie through the 7.0 ETT, deflated the cuff, and removed the tube. I then slid the 8.0 ETT over the bougie until I reached the 22cm jeffrey at the lip line. I asked the daughter and the son about performing an emergent bronchoscopy to assess for any mucus plugging or inspissated secretions that I could attempt to remove to improve the patient's oxygenation. The major risk once again was further desaturations. They verbalized consent. We were able to get the difficult airway bronchoscope to evaluate the airways as the regional vice president surgical sales was called in to assist with the larger, main bronchoscope I use. I inserted the bronchoscope and examine the right lung bronchi. There appeared initially to be a large mucus plug in the right lower lobe, but it was difficult to manage as the small scope did not have strong suction. The regional vice president surgical sales arrived at this time and assisted in setting up the main bronchoscope. Please see that separate report. I performed a bronchoscopy and evaluated all the segments and subsegments on the right - no mucus plugging was present. The RLL area that appeared to be a mucus plug was actually dynamic airway collapse. I instilled minute amounts of saline without any significant return of mucus or other purluent secretions. By this time, I have exhausted any interventions I could do with the ventilator or bronchoscope. She continued to desaturate. She was placed back on the ventilator with FiO2 100% and PEEP of 20. This improved her oxygenation into the 70s. By this time, she was appearing cyanotic with some mottling. I stated to the family that this could be a pulmonary embolism. As the patient continued to decline, I offered the option to administer tPA - this was a very dangerous option as it would indiscriminately break up any clots, even hemostatic or post-operative clots - there would be risk of major internal bleeding which could lead to . There also is a ~3% risk of hemorrhagic stroke. The daughter, who is a RN, stated that she believed the patient likely had some degree of hypoxic brain damage by this time. They declined the option for tPA. The patient's arrived at this point. After discussion, the family requested that the patient be made a DNR-CCA. Code sheet was completed. The patient's blood pressure was dropping by this point. They requested that we do what we could to keep the patient alive until other family arrived. I restarted the norepinephrine gtt as her heart rate was maintaining in the 80's. I spent 80 additional minutes with the patient, excluding 10 minutes for the bronchoscopies. This case had a high probability of a clinically significant, sudden, or life threatening deterioration of this patient's condition which required my full and direct attention, intervention and personal management. Critical care time: 75 - 104 mins
--- NOTE | 2023-08-15 21:18 | W.PM.PROCNOT ---
Date of procedure: 08/15/23 Pre-op diagnosis: Respiratory failure Post-op diagnosis: same as pre-op Procedure: Procedure: Endotracheal tube exchange via bougie Reason: Need for larger airway to facilitate bronchoscopy Consent: Emergent consent obtained verbally from the patient's daughter and son Description: Patient was previously intubated with a 7.0 ETT. A bougie was inserted through the endotracheal tube. The cuff was deflated and the 7.0 endotracheal tube was removed over the bougie. An 8.0 endotracheal tube was then inserted over the bougie to the 22cm jeffrey at the anterior lip line. Placement in the airway was confirmed with positive capnography. No post-chest x-ray was ordered as the orientation to the main kristin was to be directly assessed by direct visualization with a bronchoscope. Anesthesia: Moderate Sedation (Patient was already on a propofol gtt and did not require additional anesthetic) Surgeon: Lobo Ornelas Estimated blood loss (mL): 0 Condition: critical Disposition: ICU
--- NOTE | 2023-08-15 21:27 | W.PM.PROCNOT ---
Date of procedure: 08/15/23 Pre-op diagnosis: Respiratory failure, abnormal chest x-ray Post-op diagnosis: other (No mucus plugging noted, no endobronchial lesions) Procedure: Procedure: Bronchoscopy with lavage Indication: Abnormal chest x-ray with air bronchograms and right-shift suggesting atelectasis secondary to possible mucus plugging Consent: Emergent consent was obtained from the patient's daughter and son Description: The patient was intubated prior to the procedure. A small difficult airway bronchoscope was used initially to evaluate the airways. It was inserted through the adapter through the endotracheal tube to the main kristin. It was advanced through the right main bronchus to the right upper lobe. A scant amount of mucus was noted in the subsegments, but no mucus plugging was noted. It was advanced trough the bronchus intermedius to the right middle and then right lower lobes. There appeared to be a large mucus plug in the basilar anterior/lateral/posterior bronchus, but the suction power on the bronchoscope was not enough. By this time, the instructor adjunct surgical technician arrived and set up the bronchoscope for me. The large, main bronchoscope was inserted through the endobronchial tube which was ~3cm above the main kristin. The right upper, middle, and lower lobes with their subsegments were visualized and once again, no mucus plugging was seen - the questionable mucus plug in the right lower lobe was actually dynamic airway collapse of the posterior wall. I instilled a mild amount of saline for a lavage of the right lower lobe (~10mL), but no mucus or secretions were noted during suctioning. The bronchoscope was then inserted into the left main bronchus into the left upper and lower lobes with their subsegments - no mucus plugging or endobronchial lesions were noted. There were no gross endobronchial findings to explain the abnormal chest x-ray findings. The bronchoscope was removed. Anesthesia: Moderate Sedation (Patient was already on a propofol gtt and did not require additional anesthetic) Surgeon: Lobo Ornelas Estimated blood loss (mL): 0 Condition: critical Disposition: ICU
[2023-08-15] MEDS: MIDAZOLAM HCL 2 MG/2 ML VIAL IV (22:21)
[2023-08-15] MEDS: ACETYLCYSTEINE 400 MG/4 ML VIAL 100 MG IH (23:30)
[2023-08-15] MEDS: ALBUTEROL SULFATE 2.5 MG/3 ML VIAL NEB IH (23:30)
[2023-08-15] MEDS: SODIUM CHLORIDE 0.9% INHALATION 3 ML NEB IH (23:30)
[2023-08-15] MEDS: FENTANYL CITRATE/PF 100 MCG/2 ML VIAL 50 MCG IV (23:40)
[2023-08-16] VITALS (125 sets, daily range): BP systolic 78–136; BP diastolic 36–90; PULSE 79–112; RESP 16–43; TEMP 36.1–37.4; O2SAT 74–933
--- NOTE | 2023-08-16 | CT_ITS ---
The [address] [address] Patient Name: NADJA MCGRAW MRN: [id number] date: 1945 Sex: F Assigned Patient Location: ICU Current Patient Location: ICU Accession/Order Number: [id number] Exam Date: 08/16/2023 09:30 Report Date: 08/16/2023 09:57 At the request of: JACKIE ESTRADA Procedure: CT head/brain wo con CT head/brain wo con, 08/16/2023 9:30 AM EDT, OH001 INDICATION: Mental status change COMPARISON: None. TECHNIQUE: CT images of the brain from skull base to vertex, including portions of the face and sinuses, were obtained without contrast. Supplemental 2D reformatted images were generated and reviewed as needed. Dose reduction techniques were achieved by using automated exposure control and/or adjustment of mA and/or kV according to patient size and/or use of iterative reconstruction technique. FINDINGS: The study is mildly degraded by motion artifact. The ventricles and sulci are prominent consistent with mild atrophy . There is a wedge-shaped focus of decreased density involving cortex and subcortical white matter in the right occipital lobe consistent with a recent to subacute infarct. No mass effect, acute hemorrhage, midline shift, hydrocephalus or exta-axial fluid collection. The basal cisterns are patent. The calvarium appears intact. There is mild mucosal thickening and fluid throughout the visualized paranasal sinuses. There is moderate fluid within the mastoid air cells bilaterally. 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 No mass effect, hemorrhage or midline shift is seen. Diffuse paranasal sinus disease and moderate bilateral mastoid effusions. Electronically authenticated by: NASEEM KELLEY Date: 08/16/2023 09:57
[2023-08-16] MEDS: VANCOMYCIN HCL 1,000 MG in 0.9 % SODIUM CHLORIDE 250 ML 250 MG IV (00:14)
[2023-08-16] MEDS: PANTOPRAZOLE SODIUM 40 MG VIAL IV ×2 (00:15→12:39)
[2023-08-16] MEDS: NOREPINEPHRINE BITARTRATE 4 MG in DEXTROSE 5 % IN WATER 250 ML 53.34 MG IV ×2 (00:40→06:11)
[2023-08-16] MEDS: FENTANYL CITRATE/PF 100 MCG/2 ML VIAL 50 MCG IV ×5 (02:07→13:00)
[2023-08-16] MEDS: HYDROCORTISONE SODIUM SUCC PF 100 MG/2 ML VIAL IVP ×3 (04:10→20:06)
[2023-08-16 04:43] LABS: Basophils Percent Auto 0.1 % (0.2-2.0); Eosinophils Absolute Auto 0.1 10^3/uL (0.0-0.7); Eosinophils Percent Auto 0.2 % (0.9-7.0); Hematocrit 35.3 % (36.0-48.0); Hemoglobin 11.5 g/dL (12.0-16.0); Immature Granulocytes Abs Auto 0.91 10^3/uL (0.00-0.03); Immature Granulocytes Pct Auto 2.4 % (0.0-0.5); Lymphocytes Absolute Auto 0.7 10^3/uL (1.2-3.8); Lymphocytes Percent Auto 1.9 % (20.5-60.0); Mean Corpuscular HGB Conc 32.6 g/dL (29.9-35.2); Mean Corpuscular Hemoglobin 27.3 pg (26.7-34.0); Mean Corpuscular Volume 83.6 fL (81.0-99.0); Mean Platelet Volume 10.5 fL (9.5-13.5); Monocytes Absolute Auto 1.3 10^3/uL (0.3-0.8); Monocytes Percent Auto 3.3 % (1.7-12.0); Neutrophils Absolute Auto 35.5 10^3/uL (1.4-6.5); Neutrophils Percent Auto 92.1 % (43.0-75.0); Platelet Count 177 10^3/uL (150-450); Red Blood Count 4.22 10^6/uL (4.20-5.40); Red Cell Distribution Width 15.3 % (11.0-15.0)
[2023-08-16 05:01] LABS: White Blood Count 38.5 10^3/uL (4.0-11.0)
[2023-08-16 05:15] LABS: Magnesium 2.1 mg/dL (1.8-2.4)
[2023-08-16 05:19] LABS: Alanine Aminotransferase 77 U/L (14-59); Albumin Globulin Ratio 0.5; Albumin Level 1.8 g/dL (3.4-5.0); Alkaline Phosphatase 176 U/L (46-116); Anion Gap 15.7; Aspartate Amino Transferase 256 U/L (15-37); Bilirubin Total 0.3 mg/dL (0.2-1.0); Calcium 9.5 mg/dL (8.5-10.1); Carbon Dioxide 17.7 mmol/L (21.0-32.0); Chloride 101 mmol/L (98-107); Estimated GFR (African America 25 (>=60); Estimated GFR (Non-African Ame 21 (>=60); Globulin 3.4 g/dL; Glucose 225 mg/dL (74-106); Potassium 4.4 mmol/L (3.5-5.1); Sodium 130 mmol/L (136-145); Total Protein 5.2 g/dL (6.4-8.2)
[2023-08-16 05:42] LABS: pH ABG 7.134 (7.350-7.450)
[2023-08-16 05:43] LABS: ABG PCO2 49.1 mmHg (35.0-45.0); Allen Test POSITIVE (POSITIVE); Base Excess ABG -12.7 mmol/L (-2.0-2.0); HCO3 ABG 16.5 mmol/L (22.0-26.0); Oxygen Saturation ABG 88.3 %; PO2 ABG 63.3 mmHg (80.0-100.0)
[2023-08-16 05:44] LABS: Fractionated Inspired Oxygen 100 %; O2 Mode VENTILATOR; Puncture Site ART LINE; Rate 16; Tidal Volume 550; Vent Mode A/C
--- NOTE | 2023-08-16 07:29 | PM.GSPN ---
Progress Note: A&P Assessment and Plan (1) Septic shock: (2) Cardiogenic postoperative shock: (3) Acute respiratory failure: Qualifiers: Respiratory failure complication: hypoxia Qualified Code(s): J96.01 - Acute respiratory failure with hypoxia (4) Small bowel obstruction: (5) Anemia requiring transfusions: (6) ANA (acute kidney injury): (7) Hyponatremia: (8) Thrombocytopenia: (9) Hypomagnesemia: (10) Malnutrition of moderate degree: Plan supportive care; prognosis is poor and family aware. Pending pathology? Perforation since peritoneal fluid grew out Escherichia coli and Bacteroides? Lymphoma Subjective Subjective Interval history: postop day #3 extended ileal colic resection or mesenteric mass and perforation? Patient intubated on a hundred percent FiO2 and not doing well. Pulmonology performed bronchoscopy rule out mucous plug in that was negative. PO2 is low at sixty-four. White blood count remains elevated thirty-eight thousand hemoglobin is up to 11.5 g after three units packed red blood cells. Urine output has been nill since last evening. Patient's family at bedside including and daughter another relatives. They are aware of the situation. Prognosis is looking poor. Suspect she is an ARDS by chest x-ray. She also had an myocardial infarction posterior pole and was elevated and EKG changes were noted. Exam Constitutional Vital Signs, click to edit/add: Last Vital Signs Temp 98.0 F 08/16/23 02:00 Pulse 93 H 08/16/23 06:00 Resp 16 08/16/23 06:00 BP 113/60 08/16/23 06:00 Pulse Ox 90 L 08/16/23 06:00 O2 Del Method Mechanical Ventilator 08/16/23 06:00 O2 Flow Rate 55 08/15/23 16:00 FiO2 100 08/16/23 04:06 Documenting provider has reviewed patient's vital signs: yes Common normals: no apparent distress (intubated but not responsive except to examination of the abdomen she wince) GI Common normals: soft to palpation (incision clean dry and intact and? Mass in right lower quadrant) Neuro Sensorium/orientation: obtunded (intubated on ventilator; response to deep palpation of the right lower quad) Urinary Catheter Management Urinary Catheter Management Urethral: Cath placed during this visit: yes Urethral indwelling: Yes Reason for continuing: surgical procedure Insertion date: 08/13/23
[2023-08-16] MEDS: ACETYLCYSTEINE 400 MG/4 ML VIAL 100 MG IH ×3 (07:43→23:42)
[2023-08-16] MEDS: ALBUTEROL SULFATE 2.5 MG/3 ML VIAL NEB IH ×3 (07:44→23:42)
[2023-08-16] MEDS: SODIUM CHLORIDE 0.9% INHALATION 3 ML NEB IH ×3 (08:07→23:42)
--- NOTE | 2023-08-16 08:26 | CT_ITS ---
[address] [address] Patient Name: NADJA MCGRAW MRN: [id number] date: 1945 Sex: F Assigned Patient Location: ICU Current Patient Location: ICU Accession/Order Number: [id number] Exam Date: 08/16/2023 09:30 Report Date: 08/16/2023 10:23 At the request of: MILES MAZARIEGOS Procedure: CT abdomen pelvis wo con EXAMINATION: CT abdomen pelvis wo con, CT chest wo con, 08/16/2023 9:30 AM EDT HISTORY: Septic shock, hypoxic respiratory failure COMPARISON: Relevant priors reviewed including chest x-ray 08/15/2023 TECHNIQUE: CT of the chest, abdomen, and pelvis was performed without IV contrast. Dose reduction techniques were achieved by using automated exposure control and/or adjustment of mA and/or kV according to patient size and/or use of iterative reconstruction technique. FINDINGS: Noncontrasted nature of the exam limits evaluation of the vascular structures and solid organs. Examination is also limited by motion artifact. CHEST: Medical devices: Endotracheal tube terminates in the distal intrathoracic trachea. Left PICC catheter tip within the upper SVC. Thyroid: Normal. Vasculature: Dilatation of the main pulmonary artery measuring 3.4 cm can be seen with elevated pulmonary arterial pressures. Aorta is of normal caliber. Aortic atherosclerotic calcification. Heart: Not enlarged. Multivessel atherosclerotic calcification of the coronary arteries. No pericardial effusion. Mediastinum: There is leftward mediastinal shift. Airways: Central airways are grossly patent. Lung parenchyma and pleura: There is a large right pneumothorax. Trace bilateral pleural fluid as well. Groundglass and consolidative opacities throughout the lungs bilaterally likely represent a combination of multifocal infiltrate, as well as atelectatic change; superimposed edema not excluded; examination is limited by motion artifact. Lymph nodes: No supraclavicular, axillary, mediastinal, or hilar lymphadenopathy. Chest wall: Body wall edema Musculoskeletal: Degenerative change of the spine. ABDOMEN/PELVIS: Liver: Mildly enlarged measuring approximately 20 cm in craniocaudal dimension. Normal contour. Biliary tree: Normal. Gallbladder: Intraluminal density likely relates to vicarious contrast excretion. No findings of acute cholecystitis. Spleen: Mildly enlarged measuring approximately 14 cm in AP dimension. Pancreas: Normal. Adrenal glands: Unchanged intermediate attenuating 2.1 x 1.5 cm left adrenal nodule, indeterminate. Right adrenal is unremarkable. Kidneys and ureters: No hydronephrosis or radiodense calculi. Right renal cyst. There is likely minimal retained contrast in the renal cortex suggesting renal dysfunction. Bladder: Decompressed with appropriately positioned Kenyon catheter. Reproductive organs: Similar uterine masses, likely myoma. No suspicious adnexal mass. Gastrointestinal tract: Procedure change of the cecum and distal ileum. No abnormal dilatation. Colonic diverticulosis without findings of acute diverticulitis. Peritoneum/retroperitoneum: Trace free intraperitoneal fluid. No significant free intraperitoneal gas. No drainable collection. No extraluminal enteric contrast to suggest leak. Vasculature: Atherosclerosis without aneurysm. Lymph nodes: Normal. Abdominal wall: Procedure change. Diffuse body wall edema. Musculoskeletal: Multilevel degenerative change of the spine. Unchanged spinal alignment. CT/CT abdomen pelvis wo con IMPRESSION: CTs of the chest, and abdomen and pelvis 1. Large right pneumothorax, with leftward mediastinal shift suggesting a degree of tension physiology. 2. Opacity throughout the lungs bilaterally likely representing a combination of multifocal infiltrate and atelectasis; superimposed edema not excluded. Trace bilateral pleural fluid as well. 3. No acute findings within the abdomen and pelvis, within limitations of noncontrast technique. No gross findings of bowel/anastomotic leak. 4. Trace free intraperitoneal fluid. No free intraperitoneal gas or drainable collection. 5. Diffuse body wall edema. 6. Findings a renal dysfunction. 7. Additional unchanged incidental findings as above. Critical results communicated to and acknowledged by Dr. Spears via telephone at approximately 10:15 AM, 08/16/2023. Electronically authenticated by: KIM SHEPARD Date: 08/16/2023 10:23
--- NOTE | 2023-08-16 08:26 | CT_ITS ---
[address] [address] Patient Name: NADJA MCGRAW MRN: [id number] date: 1945 Sex: F Assigned Patient Location: ICU Current Patient Location: ICU Accession/Order Number: [id number] Exam Date: 08/16/2023 09:30 Report Date: 08/16/2023 10:23 At the request of: MILES MAZARIEGOS Procedure: CT chest wo con EXAMINATION: CT abdomen pelvis wo con, CT chest wo con, 08/16/2023 9:30 AM EDT HISTORY: Septic shock, hypoxic respiratory failure COMPARISON: Relevant priors reviewed including chest x-ray 08/15/2023 TECHNIQUE: CT of the chest, abdomen, and pelvis was performed without IV contrast. Dose reduction techniques were achieved by using automated exposure control and/or adjustment of mA and/or kV according to patient size and/or use of iterative reconstruction technique. FINDINGS: Noncontrasted nature of the exam limits evaluation of the vascular structures and solid organs. Examination is also limited by motion artifact. CHEST: Medical devices: Endotracheal tube terminates in the distal intrathoracic trachea. Left PICC catheter tip within the upper SVC. Thyroid: Normal. Vasculature: Dilatation of the main pulmonary artery measuring 3.4 cm can be seen with elevated pulmonary arterial pressures. Aorta is of normal caliber. Aortic atherosclerotic calcification. Heart: Not enlarged. Multivessel atherosclerotic calcification of the coronary arteries. No pericardial effusion. Mediastinum: There is leftward mediastinal shift. Airways: Central airways are grossly patent. Lung parenchyma and pleura: There is a large right pneumothorax. Trace bilateral pleural fluid as well. Groundglass and consolidative opacities throughout the lungs bilaterally likely represent a combination of multifocal infiltrate, as well as atelectatic change; superimposed edema not excluded; examination is limited by motion artifact. Lymph nodes: No supraclavicular, axillary, mediastinal, or hilar lymphadenopathy. Chest wall: Body wall edema Musculoskeletal: Degenerative change of the spine. ABDOMEN/PELVIS: Liver: Mildly enlarged measuring approximately 20 cm in craniocaudal dimension. Normal contour. Biliary tree: Normal. Gallbladder: Intraluminal density likely relates to vicarious contrast excretion. No findings of acute cholecystitis. Spleen: Mildly enlarged measuring approximately 14 cm in AP dimension. Pancreas: Normal. Adrenal glands: Unchanged intermediate attenuating 2.1 x 1.5 cm left adrenal nodule, indeterminate. Right adrenal is unremarkable. Kidneys and ureters: No hydronephrosis or radiodense calculi. Right renal cyst. There is likely minimal retained contrast in the renal cortex suggesting renal dysfunction. Bladder: Decompressed with appropriately positioned Kenyon catheter. Reproductive organs: Similar uterine masses, likely myoma. No suspicious adnexal mass. Gastrointestinal tract: Procedure change of the cecum and distal ileum. No abnormal dilatation. Colonic diverticulosis without findings of acute diverticulitis. Peritoneum/retroperitoneum: Trace free intraperitoneal fluid. No significant free intraperitoneal gas. No drainable collection. No extraluminal enteric contrast to suggest leak. Vasculature: Atherosclerosis without aneurysm. Lymph nodes: Normal. Abdominal wall: Procedure change. Diffuse body wall edema. Musculoskeletal: Multilevel degenerative change of the spine. Unchanged spinal alignment. CT/CT chest wo con IMPRESSION: CTs of the chest, and abdomen and pelvis 1. Large right pneumothorax, with leftward mediastinal shift suggesting a degree of tension physiology. 2. Opacity throughout the lungs bilaterally likely representing a combination of multifocal infiltrate and atelectasis; superimposed edema not excluded. Trace bilateral pleural fluid as well. 3. No acute findings within the abdomen and pelvis, within limitations of noncontrast technique. No gross findings of bowel/anastomotic leak. 4. Trace free intraperitoneal fluid. No free intraperitoneal gas or drainable collection. 5. Diffuse body wall edema. 6. Findings a renal dysfunction. 7. Additional unchanged incidental findings as above. Critical results communicated to and acknowledged by Dr. Spears via telephone at approximately 10:15 AM, 08/16/2023. Electronically authenticated by: KIM SHEPARD Date: 08/16/2023 10:23
--- NOTE | 2023-08-16 08:31 | PM.CCPN1 ---
Critical Care - PN: Subjective Date of Service Date of service: 08/16/23 Subjective Interval history: Discussed with RN, RT. Patient originally seen ~07:45 this AM. Patient has survived the night. Oxygenation has improved back to SpO2 95% albeit on FiO2 100% & PEEP 20. Requiring norepinephrine to maintain MAP >65 - currently at 12mcg/min. WBC ~38k, worsening acidosis on ABG, Cr ~2.3. Family present in room, asked what their wishes were as last night, the patient appeared on the brink of coding and she was made a DNR-CCA. Her son is coming from [place] to see her. As she still had reactive pupils, the plan was to continue to attempt to treat her if possible, but maintain DNRCCA. I was contacted by Dr. Cedrick Spears @ 10:[address] imaging we ordered showed a new large right pneumothorax with left shift. I emergently evaluated the patient at bedside and inserted a ThoraVent. SpO2 was ~86% and improved to 97% after insertion of the ThoraVent. Critical Care - PN: Meds Active Infusions Active infusions: Norepinephrine, propofol Pertinent Medications Meds reviewed: I have reviewed the active medications in the EHR Exam Constitutional Vital Signs, click to edit/add: Last Vital Signs Temp 96.9 F L 08/16/23 07:50 Pulse 92 H 08/16/23 08:00 Resp 17 08/16/23 07:49 BP 134/73 08/16/23 08:00 Pulse Ox 95 08/16/23 08:00 O2 Del Method Mechanical Ventilator 08/16/23 07:49 O2 Flow Rate 55 08/15/23 16:00 FiO2 100 08/16/23 07:49 Documenting provider has reviewed patient's vital signs: yes Other: Sedated HENMT Other: 8.0 ETT Eye Other: Pupils ~2cm, but were reactive. She attempted to close her eyelids when exposed to bright light. Did not track me. Neck & C-Spine Common normals: supple Chest Common normals: inspection of chest normal Respiratory Other: Decreased rhonchi compared to yesterday, more breath sounds on the left than the right. Cardio Rhythm: abnormal rhythm irregularly irregular Peripheral pulses: popliteal pulses present bilateral 1+ GI Other: Wearing abdominal binder Bladder/kidney exam: catheter in place Catheter type (Female): urethral Extremity Other: Wearing SCDs Neuro Other: Later in the morning, she was arousable to deep palpation Psych Attitude: calm Critical Care - PN: Obj Data Recent Vital Signs Recent vital signs: Right arterial line Ventilator Management ?Ventilator management: FiO2 100%, PEEP 20 Kenyon Kenyon catheter?: Yes Chest Tubes Chest Tube 1: Chest tube Insertion Date: 08/16/23 (Right ThoraVent) Urinary Catheter Management Urinary Catheter Management Urethral: Cath placed during this visit: yes Urethral indwelling: Yes Reason for continuing: measure accurate output Insertion date: 08/13/23 Restraints Assessments Restraints Assessments Face to Face Assessment: Yes Discontinue Restraint: No Critical Care - PN: A&P Assessment and Plan (1) Septic shock: Plan 1. Septic shock. Secondary to E. coli associated with underlying SBO/ileal process. Shock improved yesterday morning, but worsened last evening with norepinephrine restarted. Continue norepinephrine to maintain MAP >65. Remains septic, now WBC 38.5k. Repeat BC, UA. Question aspiration pneumonia, but ertrapenem has good Gram negative and anaerobic coverage. Vancomycin was ordered yesterday. Abdominal cultures now growing bacteroides. 2. Spontaneous right pneumothorax. As stated above, secondary to acute illness/septic shock/suspected ARDS decreasing lung compliance in the presence of high PEEP required to maintain adequate saturations. Despite yesterday's CXR suggesting right shift, with the pneumothorax she now has a left shift indicating development of a tension pneumothorax. Emergent right ThoraVent (Heimlich valve thoracostomy tube) was placed and oxygenation rapidly improved as I manually expunged air. She is now connected to an atrium which continues to show an air leak. 2. Acute hypoxic respiratory failure. Ventilator dependent secondary to septic shock. Oxygenation was critical yesterday. CXR showed air bronchograms with right shift suggesting atelectasis such as a mucus plug. Bronchoscopy did not show any mucus plugging. Oxygenation improved overnight and this AM, I decreased her PEEP from 20 to 15 given the improvement. However after initially seen this morning, oxygenation worsened and CT showed development of a spontaneous pneumothorax on the right necessitating an emergent ThoraVent placement. Question ARDS from sepsis causing decreased compliant lungs. Unfortunately, FiO2 was at 100% and still was not maintaining adequeate saturations, necessitating increasing PEEP and unfortunately, pneumothorax is a known complication of higher PEEP (we do not have ECMO). Oxygenation has improved some after placement of the ThoraVent; PEEP has been decreased to 10. Question if there is an underlying pulmonary emboli, but risks of contrast to cause worsening renal failure were felt too great and a non-contrast CT was done. No obvious emboli were noted on the imaging. 5. Acute hypercapnic respiratory failure. Patient was previously compensating for the severe metabolic/lactic acidosis, but now is having impaired ventilation. This combination is worsening acidosis with pH down to 7.13. Will give a 1 time dose of sodium bicarbonate to see if this has any benefit, but avoiding bicarb gtt at this point as it can potentially cause increased CO2 production, worsening overall acidemia. 6. Acute renal failure secondary to septic shock , on top of chronic kidney disease stage III. Creatinine worse today @ 2.3...related to hypotension and hypoxia since last afternoon. Discussed CT chest/abdomen/pelvis to see if there were any correctable issues, but I stated that if we were to use IVP dye, this would worsen her renal function even more and increase the risk for need of emergent hemodialysis. Family stated that they do not want hemodialysis, so CT imaging was ordered without contrast. 7. NSTEMI type 2 (supply/demand mismatch). HS-Trop elevated yesterday. This would be consistent with the global hypoxia the patient experienced yesterday afternoon. She had a complete echocardiogram on 08/14/2023, but given changes in her status, ordering a limited echocardiogram to see if there is any change in EF, etc. Repeating troponin this AM. 8. Metabolic (lactic) acidosis associated with septic shock (type B). Attempting to treat the underlying conditions. 9. Iron deficiency anemia. ? acute blood loss anemia - no excessive apparent pooling of blood in the abdomen on CT imaging. Maintain Hb >7g/dL. 10. Hypokalemia. Monitoring K+ 11. Hypomagnesemia. Monitor Mg2+ 12. Hypoalbuminemia. On TPN. 13. POD #3 (08/13/2023) small bowel resection for small bowel obstruction. General surgery management. Fall Risk Details Bryant Fall Scale Risk Level: High Fall Risk Current medications: Current Medications Acetylcysteine (Acetylcysteine 400 Mg/4 Ml Vial) 100 mg IH Q8H SOHAIL Last Admin: 08/16/23 07:43 Dose: 100 mg Albuterol (Albuterol Sulfate 2.5 Mg/0.5 Ml Vial Neb) 0.5 mg IH Q2H PRN PRN Reason: Dyspnea, wheezing Albuterol (Albuterol Sulfate 2.5 Mg/3 Ml Vial Neb) 2.5 mg IH Q8H [facility] Last Admin: 08/16/23 07:44 Dose: 2.5 mg Fentanyl Citrate (Fentanyl Citrate/Pf 100 Mcg/2 Ml Vial) 50 mcg IV Q1H PRN PRN Reason: Agitation Last Admin: 08/16/23 06:44 Dose: 50 mcg Hydrocortisone Sodium Succinate (Hydrocortisone Sodium Succ Pf 100 Mg/2 Ml Vial) 100 mg IVP Q8H [facility] [place] Last Admin: 08/16/23 04:10 Dose: 100 mg Propofol (Diprivan) 1,000 mg in 100 mls @ 15 mls/hr IV TITR [facility] [place]; Protocol Last Titration: 08/15/23 22:00 Dose: 0 mls/hr, 0 mls/hr Ertapenem 0.5 gm/ Sodium (Chloride) 50 mls @ 100 mls/hr IV Q24H [facility] [place] Last Infusion: 08/15/23 12:38 Dose: Infused Vancomycin HCl 1,000 mg/ (Sodium Chloride) 250 mls @ 250 mls/hr IV Q36H [facility] [place] Last Infusion: 08/16/23 01:14 Dose: Infused Heparin Sodium/Sodium Chloride (Heparin 1,000 Unit/500 Ml-Ns) 1,000 unit in 500 mls @ 1 mls/hr IV Q24H [facility] [place] Last Admin: 08/15/23 10:50 Dose: 1 mls/hr Potassium Chloride (Potassium Cl 10 Meq/100 Ml Raquel) 10 meq in 100 mls @ 100 mls/hr IV Q1H PRN PRN Reason: K+ <3.5 Stop: 08/22/23 23:59 Last Infusion: 08/15/23 19:48 Dose: Infused Multivitamins 10 ml/ Amino (Acids/Electrolytes) 1,010 mls @ 40 mls/hr IV Q24H [facility] [place] Last Admin: 08/15/23 13:30 Dose: 40 mls/hr Norepinephrine 4 mg/ Dextrose 254 mls @ 7.62 mls/hr IV ONCE PRN; Protocol PRN Reason: Blood Pressure - Low Last Titration: 08/16/23 06:46 Dose: 12 mcg/min, 45.72 mls/hr Insulin Aspart (Insulin Aspart 300 Unit/3 Ml Pen) 3 - 15 unit SUBQ Q6H [facility] [place]; Protocol Last Admin: 08/16/23 06:44 Dose: Not Given Midazolam HCl (Midazolam Hcl 2 Mg/2 Ml Vial) 2 mg IV Q4HWA [facility] [place] Last Admin: 08/16/23 08:05 Dose: Not Given Ondansetron HCl (Ondansetron Pf 4 Mg/2 Ml Vial) 4 mg IV Q4H PRN PRN Reason: Nausea And Vomiting Last Admin: 08/12/23 13:26 Dose: 4 mg Pantoprazole Sodium (Pantoprazole Sodium 40 Mg Vial) 40 mg IV Q12H [facility] [place] Last Admin: 08/16/23 00:15 Dose: 40 mg Promethazine HCl (Promethazine Hcl 25 Mg/Ml Vial) 25 mg IV Q6H PRN PRN Reason: Nausea And Vomiting Sodium Bicarbonate (Sodium Bicarbonate 50 Meq/50 Ml 8.4% - Syringe) 50 meq IV ONCE ONE Stop: 08/16/23 08:27 Sodium Chloride (Sodium Chloride 0.9% Inhalation 3 Ml Neb) 3 ml IH Q8H [facility] [place] Last Admin: 08/16/23 08:07 Dose: 3 ml Disposition Disposition: remain in unit Time Spent with Patient Time spent: Patient remains critically ill with a very high risk of mortality. Continues to develop additional or worsening complications (hemodynamic instability, respiratory failure, renal failure, NSTEMI, spontaneous pneumothorax). Continuing to treat patient until family decides otherwise. Patient was initially seen for 40 minutes this AM, with additional 40 minutes later in the morning d/t pneumothorax (excluding time for ThoraVent insertion). Total critical care time so far today is 80 minutes.
--- NOTE | 2023-08-16 09:06 | CA_ITS ---
Patient: NADJA MCGRAW Exam Date: 08/16/2023 : 1945 Gender:F Ordering : DR. Lobo Ornelas . Admission #: [id number] Family : Jerilyn Spears . Order #: [id number] CLICK HERE TO VIEW EXAM ECHOCARDIOGRAM REPORT PROCEDURE: CA ECHO LIMITED INDICATIONS: Septic shock, NSTEMI, hypoxic respiratory failure - ventilator COMPARISON: None. DESCRIPTION: Limited ECHOCARDIOGRAM Real-time transthoracic echocardiography with 2D and M-mode performed. QUALITY: Technical quality was good. Limited echocardiogram per physician order. LEFT VENTRICLE: Small chamber size. Left ventricular wall thickness is mildly increased. LV EF: Global left ventricular systolic function is hyperdynamic; visually estimated ejection fraction is 65 to 70%. No wall motion abnormalities. LEFT ATRIUM: Poorly seen; appears normal in size. RIGHT ATRIUM: Normal chamber size. RIGHT VENTRICLE: Appears enlarged with reduced systolic function. TRICUSPID VALVE: Normal mobility and thickness. Mild regurgitation. Doppler studies reveal moderately (45-60) elevated right sided pressures. RVSP 48 mmHg MITRAL VALVE: Normal mobility and thickness. Mitral annular calcification. AORTIC VALVE: Normal trileaflet appearance. Moderately calcified aortic valve. AORTIC ROOT: Inadequately seen. PULMONIC VALVE: Normal thickness and mobility. PERICARDIUM: Anterior free space; trivial effusion versus fat pad. CONCLUSION: 1. Global left ventricular systolic function is hyperdynamic; visually estimated ejection fraction 65 to 70% 2. Left ventricular wall thickness is mildly increased 3. The right ventricle appears enlarged with reduced systolic function 4. Mild tricuspid regurgitation 5. Moderately elevated right ventricular systolic pressure anterior free space; trivial effusion versus fat pad 6. A limited echocardiogram was performed Adult Echocardiography Procedure Report Left Ventricle LVEDD (3.7 - 5.6 cm): 3.53 cm LVESD (2.2 - 4.0 cm): 2.15 cm LVIVS thickness (0.6 - 1.2 cm): 1.64 cm LVPW thickness (0.5 - 1.0 cm): 1.03 cm LVOT Diameter 2.21 cm Left Atrium Left Atrium Systolic Dimension: 4.35 cm Mitral Valve Right Ventricle Aorta AO Root Diam: 3.43 cm Aortic Valve Tricuspid Valve Peak Velocity (Regurgitant Flow): 3.25 m/s, 3.34 m/s Pulmonic Valve Right Atrium Dictated by: Luis Antonio Mehta M.D. on 08/16/2023 at 14:11 Approved by: Luis Antonio Mehta M.D. on 08/16/2023 at 14:17
[2023-08-16] MEDS: ERTAPENEM SODIUM 0.5 GM in 0.9 % SODIUM CHLORIDE 50 ML IV (10:06)
[2023-08-16] MEDS: SODIUM BICARBONATE 50 MEQ/50 ML 8.4% - SYRINGE IV (10:06)
[2023-08-16] MEDS: HEPARIN SODIUM,PORCINE/NS/PF 1,000 UNIT/500 ML IV.SOLN 1 UNIT IV (10:06)
--- NOTE | 2023-08-16 10:22 | CM.NOTE ---
Rounds made with Dr. Spears, discussed plan of care with family at bedside. Pt will have CT chest,abdomen, and brain today.
--- NOTE | 2023-08-16 11:11 | XR_ITS ---
The [address] [address] Patient Name: NADJA MCGRAW MRN: [id number] date: 1945 Sex: F Assigned Patient Location: ICU Current Patient Location: ICU Accession/Order Number: [id number] Exam Date: 08/16/2023 11:35 Report Date: 08/16/2023 11:58 At the request of: MILES MAZARIEGOS Procedure: XR chest 1V EXAMINATION: XR chest 1V 08/16/2023 8:56 AM PDT HISTORY: s/p chest tube (Thora Vent) TECHNIQUE: Single frontal view of the chest acquired. COMPARISONS: Chest x-ray 08/15/[address] 08/16/2023. FINDINGS: Lines/tubes/other: -Right-sided chest tube is present. -An endotracheal tube terminates 2.5 cm screening of the kristin. -Central venous catheter terminates in the upper one third of the SVC. Heart and mediastinum: Stable. No significant mediastinal deviation. Bones: No acute osseous abnormality. Lungs: Moderate diffuse bilateral pulmonary opacification, similar to slightly improved. Pleura: There is no significant pleural effusion or pneumothorax. Other: None. XR/XR chest 1V IMPRESSION: No pneumothorax status post chest tube placement. Electronically authenticated by: HILDA REYNOLDS Date: 08/16/2023 11:58
--- NOTE | 2023-08-16 11:12 | RESP.RT ---
decreased PEEP to [address] MAZARIEGOS
[2023-08-16 11:22] LABS: Glucometer 214 mg/dL (74-106)
[2023-08-16] MEDS: MULTIVIT INFUSN,ADULT 4,VIT K 10 ML in AA 5 %/CALCIUM/LYTES/DEXT 20 % 1,000 ML 40 ML IV (11:35)
--- NOTE | 2023-08-16 11:38 | PM.PN ---
Progress Note: Subjective Subjective Interval history: patient remains intubated. Patient continued to decline yesterday with difficulty maintaining oxygen saturations on max vent settings. Dr. Ornelas performed Bronchoscopy. Still with not much improvement. The decision was made to gather family and make patient DNRCCA. This morning, Patient is more responsive, active pupils, grimacing to painful stimuli. Oxygen sats still not optimal. Decision was made to CT head, chest and abdomen. ABG's showed significant acidosis, base deficits. Creatinine increased from 1.79 to 2.30, WBC's back up to 38.5. CT of the chest showed large right tension pneumothorax and opacities throught the lungs representing multifocal infiltrate/atelectasis/or edema, CT head showed recent/subacute infarct of the right occipital lobe, diffuse sinus disease, and CT abdomen showed trace free intraperitoneal fluid, no gas or gross findings of bowel anastomotic leak. I was at bedside with Dr. Ornelas for successful needle decompression of the right tension pneumothorax. oxygen sats immediately improved. Heparin was started. Urine output has been declining. Patient still requiring Levophed. Still on propofol and Fentanyl. Continuing the Invanz and Vancomycin, redraw blood cultures today, urine culture; for her heart and elevated troponin, repeat troponin, repeat echo. Exam Narrative Exam Narrative: General: patient remains intubated and sedated Head: atraumatic, acephalic Heart: Normal rate and rhythm, no murmurs/rubs/gallops Lungs: no audible wheezes, bilateral crackles Abdomen: diminished bowel sounds, no audible in the lower quadrants, abdominal binder in place, soft no distension Musculoskeletal: +1 swelling bilateral lower extremities Neuro: responds to painful stimulus, spontaneously opens eyes Constitutional Vital Signs, click to edit/add: Last Vital Signs Temp 96.9 F L 08/16/23 07:50 Pulse 85 08/16/23 11:15 Resp 17 08/16/23 07:49 BP 128/68 08/16/23 10:53 Pulse Ox 97 08/16/23 11:15 O2 Del Method Mechanical Ventilator 08/16/23 07:49 O2 Flow Rate 55 08/15/23 16:00 FiO2 100 08/16/23 07:49 Progress Note: Objective Labs Labs: Short CBC 08/15/23 08/16/23 Range/Units 17:03 04:05 WBC 15.5 H 38.5 H* (4.0-11.0) 10^3/uL Hgb 10.3 L 11.5 L (12.0-16.0) g/dL Hct 30.9 L 35.3 L (36.0-48.0) % Plt Count 126 L 177 (150-450) 10^3/uL BMP 08/15/23 08/16/23 17:03 04:05 Sodium 132 L 130 L Potassium 3.4 L 4.4 Chloride 103 101 Carbon Dioxide 19.1 L 17.7 L BUN 35.0 H 39.0 H Creatinine 1.79 H 2.30 H Glucose 197 H 225 H Calcium 9.1 9.5 Liver Function 08/16/23 Range/Units 04:05 Total Bilirubin 0.3 (0.2-1.0) mg/dL AST 256 H (15-37) U/L ALT 77 H (14-59) U/L Alkaline Phosphatase 176 H (46-116) U/L Albumin 1.8 L (3.4-5.0) g/dL Progress Note: A&P Assessment and Plan (1) Septic shock: Assessment and Plan: continue vancomycin and Invanz, Leukocytosis increased today, redraw urine/blood cultures. Hypotensive still. Peritoneal cultures showing Ecoli growth, sensitive to Ertapenum. Patient with triple lumen and art line. Still no surgical path. CT abdomen shows no anastomotic leaks. continue broad spectrum antibiotics. (2) Cardiogenic postoperative shock: Assessment and Plan: cardiogenic shock from severe sepsis; elevated PRO BNP and initial echo whowed increased mild right sided pressures with mild diastolic dysfunction. Some pulmonary edema seen on chest X-rays, shes been given lasix 40mg IV twice in the last 2 days. Trop was 141, repeat now, repeat ECHO. CT showed dilation of the main pulmonary artery but patient also had a tension pneumothrorax. (3) CVA (cerebral vascular accident): Assessment and Plan: CT evidence of subacute right occipital lobe infarct, was on lovenox but stopped yesterday due to low hemoglobin and possible internal bleeding. H&H maintaining today. Start Heparin SQ. more alert and responsive today (4) Acute respiratory failure: Assessment and Plan: pulmonary consult for vent management, patient remained intubated/sedated, worsening ABGs Qualifiers: Respiratory failure complication: hypoxia Qualified Code(s): J96.01 - Acute respiratory failure with hypoxia (5) Small bowel obstruction: Assessment and Plan: postop day #3 from small bowel colon resection. Concern for possible ischemic bowel and/ or perforation in the setting of inital SBO as 2L of peritoneal fluid present (per the operative note)and Ecoli growing in fluid. covering with Invanz. So far no post op changes seen on CT today. This is most likely the source of her severe sepsis (6) Anemia requiring transfusions: Assessment and Plan: hb 5.7, gave 3 units, stopped lovenox 08/15/23, increased protonix for 40mg IV BID, Hb 11.5 today (7) Malnutrition of moderate degree: Assessment and Plan: d/c tpn for now (8) Hyponatremia: Assessment and Plan: monitor, dc TPN Plan Patient is now a DNRCCA, updating family multiple times though out the day with results and further plan of care patient is still very critical, time spent caring for the patient 45 min today still very critical and expected to stay manyh more days
--- NOTE | 2023-08-16 11:49 | NUTR.NU ---
Leanne had a significant decline overnight including acute hypoxia and right atelectasis. Code status changed to DNRCC-A. Recommend hold TPN @ this time. Will continue to follow PRN.
[2023-08-16] MEDS: NOREPINEPHRINE BITARTRATE 4 MG in DEXTROSE 5 % IN WATER 250 ML 38.1 MG IV (11:51)
--- NOTE | 2023-08-16 11:59 | W.PM.PROCNOT ---
Date of procedure: 08/16/23 Pre-op diagnosis: Large right pneumothorax Post-op diagnosis: same as pre-op Procedure: Procedure: Right ThoraVent (Heimlich valve thoracostomy tube) placement Indication: Large right pneumothorax with tension component Consent: Emergent consent obtained from the family as patient is unable to provide it herself Description: Patient had CT chest this morning which showed development of a large right pneumothorax with mild left shift indicating a tension component. Due to this feature, emergent placement of a thoracostomy tube was indicated. Verbal consent was obtained from the family. Patient was supine. Right upper chest area was cleansed with ChloraPrep. Using a sterile glove, the second right intercostal space was palpated, indicating the placement point for the ThoraVent. 8mL lidocaine 1% was injected subcutaneously down to the intercostal muscle. Incision was made in the anesthetized area. The ThoraVent catheter over a trochar was inserted through the incision to the intercostal muscle and then introduced into the right pleural cavity. The trochar was removed as the catheter was advanced and the aerochamber was adhered to the anterior right chest by preapplied adhesive. I then inserted the adapter to manually expunge air from the chest. I estimate ~800mL of air were removed to the point resistance was met. Vitals were monitored, with SpO2 increasing from 86% to 97% after I expunged the air. Suction was attached to the ThoraVent. Post-op chest x-ray confirming improvement/resolution of the pneumothorax is pending at this time. Anesthesia: Local (Lidocaine 1% 8mL) Surgeon: Lobo Ornelas Estimated blood loss (mL): 1 Condition: critical Disposition: ICU
[2023-08-16] MEDS: HEPARIN SODIUM (PORCINE) 5,000 UNIT/ML VIAL 5000 UNIT SUBQ ×2 (12:38→20:06)
--- NOTE | 2023-08-16 13:12 | PC.NURSE ---
oral care completed, face washed. pt closes eyes tightly with care, but does not follow commands or move extremities on own. family at bedside, medicated for comfort per request. dr purvis updated on urine output and overall condition.
[2023-08-16 13:30] LABS: Troponin I High Sensitivity 207.3 pg/mL (4.0-51.3)
[2023-08-16] MEDS: LACTATED RINGER'S SOLUTION 1,000 ML 1000 ML IV (13:53)
[2023-08-16 17:30] LABS: Glucometer 258 mg/dL (74-106)
[2023-08-16] MEDS: INSULIN ASPART 300 UNIT/3 ML PEN SUBQ (17:44)
[2023-08-16 18:10] LABS: Basophils Percent Auto 0.3 % (0.2-2.0); Eosinophils Absolute Auto 0.1 10^3/uL (0.0-0.7); Eosinophils Percent Auto 0.5 % (0.9-7.0); Hematocrit 26.2 % (36.0-48.0); Hemoglobin 8.3 g/dL (12.0-16.0); Immature Granulocytes Abs Auto 0.12 10^3/uL (0.00-0.03); Lymphocytes Absolute Auto 0.2 10^3/uL (1.2-3.8); Lymphocytes Percent Auto 1.5 % (20.5-60.0); Mean Corpuscular HGB Conc 31.7 g/dL (29.9-35.2); Mean Corpuscular Hemoglobin 27.6 pg (26.7-34.0); Mean Platelet Volume 10.9 fL (9.5-13.5); Monocytes Absolute Auto 0.5 10^3/uL (0.3-0.8); Monocytes Percent Auto 4.2 % (1.7-12.0); Neutrophils Absolute Auto 11.2 10^3/uL (1.4-6.5); Neutrophils Percent Auto 92.5 % (43.0-75.0); Platelet Count 58 10^3/uL (150-450); Red Blood Count 3.01 10^6/uL (4.20-5.40); Red Cell Distribution Width 15.9 % (11.0-15.0); White Blood Count 12.1 10^3/uL (4.0-11.0)
[2023-08-16 19:41] LABS: Alanine Aminotransferase 262 U/L (14-59); Albumin Globulin Ratio 0.5; Albumin Level 1.4 g/dL (3.4-5.0); Alkaline Phosphatase 201 U/L (46-116); Anion Gap 15.6; BUN Creatinine Ratio 18.8; Bilirubin Total 0.4 mg/dL (0.2-1.0); Calcium 8.7 mg/dL (8.5-10.1); Carbon Dioxide 18.7 mmol/L (21.0-32.0); Chloride 100 mmol/L (98-107); Estimated GFR (African America 21 (>=60); Estimated GFR (Non-African Ame 17 (>=60); Globulin 2.9 g/dL; Glucose 245 mg/dL (74-106); Potassium 4.3 mmol/L (3.5-5.1); Sodium 130 mmol/L (136-145); Total Protein 4.3 g/dL (6.4-8.2)
[2023-08-16 19:44] LABS: Hematocrit 26.9 % (36.0-48.0); Hemoglobin 8.9 g/dL (12.0-16.0); Mean Corpuscular HGB Conc 33.1 g/dL (29.9-35.2); Mean Corpuscular Hemoglobin 27.6 pg (26.7-34.0); Mean Corpuscular Volume 83.5 fL (81.0-99.0); Mean Platelet Volume 11.4 fL (9.5-13.5); Platelet Count 66 10^3/uL (150-450); Red Blood Count 3.22 10^6/uL (4.20-5.40); Red Cell Distribution Width 15.4 % (11.0-15.0); White Blood Count 12.7 10^3/uL (4.0-11.0)
[2023-08-16 19:50] LABS: Aspartate Amino Transferase 973 U/L (15-37)
[2023-08-16 20:33] LABS: Band Neutrophils Absolute 0.1 10^3/uL (0.0-0.3); Lymphocytes Absolute Manual 0.12 10^3/uL (1.20-3.80); Monocytes Absolute Manual 0.25 10^3/uL (0.30-0.80); Segmented Neut Absolute Manual 11.93 10^3/uL (1.4-6.5)
[2023-08-16 20:34] LABS: Myelocytes Absolute Manual 0.25
[2023-08-17] VITALS (69 sets, daily range): BP systolic 77–134; BP diastolic 44–73; PULSE 82–134; RESP 16–45; TEMP 36.7; O2SAT 73–100
[2023-08-17] MEDS: FENTANYL CITRATE/PF 100 MCG/2 ML VIAL 50 MCG IV ×5 (00:03→11:09)
[2023-08-17] MEDS: INSULIN ASPART 300 UNIT/3 ML PEN SUBQ ×2 (00:27→06:25)
[2023-08-17 00:28] LABS: Glucometer 252 mg/dL (74-106)
[2023-08-17] MEDS: PANTOPRAZOLE SODIUM 40 MG VIAL IV (00:29)
--- NOTE | 2023-08-17 00:53 | RESP.RT ---
RN gave pain medication at this time. Respiratory rate decreased from 43 to 24.
--- NOTE | 2023-08-17 01:27 | ECG_ITS ---
The [facility] Test Date: 2023-08-17 Pat Name: NADJA MCGRAW Department: Room: [facility] Gender: Female Solderer Dipper: : 1945 Requested By: Order Number: [id number] Reading MD: PADMA HUGHES Measurements Intervals [place] Rate: 108 P: -33569 [place]: -49[address] QRS: -43 QRSD: 130 T: 80 QT: 342 QTc: 405 Interpretive Statements 06905 Atrial fibrillation with rapid ventricular response 2450 Right bundle branch block 7200 Abnormal left axis deviation 9150 abnormal ECG t Electronically Signed On 08-17-2023 7:08:01 EDT by PADMA HUGHES
--- NOTE | 2023-08-17 04:00 | XR_ITS ---
The [address] [address] Patient Name: NADJA MCGRAW MRN: [id number] date: 1945 Sex: F Assigned Patient Location: ICU Current Patient Location: ICU Accession/Order Number: [id number] Exam Date: 08/17/2023 04:00 Report Date: 08/17/2023 04:30 At the request of: MILES MAZARIEGOS Procedure: XR chest 1V EXAM: XR chest 1V HISTORY: Respiratory failure, on ventilator COMPARISON: Chest radiograph dated 08/16/2023. TECHNIQUE: One view of the chest was obtained. FINDINGS: An endotracheal tube terminates approximately 4.2 cm above the kristin. A left upper extremity PICC is in a stable position. A suspected right chest tube is in place. There is no significant pneumothorax or left pleural effusion. There is a trace right pleural effusion. There is a pneumomediastinum. There are mixed interstitial and airspace opacities in the lungs. Soft tissue air is seen about the right hemithorax and right aspect of the neck. No acute osseous abnormality is seen. XR/XR chest 1V IMPRESSION: 1. The endotracheal tube terminates approximately 4.2 cm above the kristin. 2. No significant pneumothorax with a suspected right chest tube in place. 3. Pneumomediastinum. 4. Mixed interstitial and airspace opacities in the lungs that could represent pulmonary edema and/or multifocal pneumonia. 5. Trace right pleural effusion. The findings will be discussed with the primary team by the [employer] information support project manager. Electronically authenticated by: Kiel ZALDIVAR Date: 08/17/2023 04:30
[2023-08-17] MEDS: HEPARIN SODIUM (PORCINE) 5,000 UNIT/ML VIAL 5000 UNIT SUBQ (04:38)
[2023-08-17] MEDS: HYDROCORTISONE SODIUM SUCC PF 100 MG/2 ML VIAL IVP (04:48)
[2023-08-17 05:04] LABS: Basophils Absolute Auto 0.1 10^3/uL (0.0-0.1); Basophils Percent Auto 0.4 % (0.2-2.0); Eosinophils Percent Auto 0.1 % (0.9-7.0); Hematocrit 27.4 % (36.0-48.0); Hemoglobin 8.9 g/dL (12.0-16.0); Immature Granulocytes Abs Auto 0.26 10^3/uL (0.00-0.03); Immature Granulocytes Pct Auto 1.9 % (0.0-0.5); Lymphocytes Absolute Auto 0.2 10^3/uL (1.2-3.8); Lymphocytes Percent Auto 1.5 % (20.5-60.0); Mean Corpuscular HGB Conc 32.5 g/dL (29.9-35.2); Mean Corpuscular Hemoglobin 27.1 pg (26.7-34.0); Mean Corpuscular Volume 83.5 fL (81.0-99.0); Mean Platelet Volume 10.9 fL (9.5-13.5); Monocytes Absolute Auto 0.7 10^3/uL (0.3-0.8); Monocytes Percent Auto 4.7 % (1.7-12.0); Neutrophils Absolute Auto 12.7 10^3/uL (1.4-6.5); Neutrophils Percent Auto 91.4 % (43.0-75.0); Platelet Count 56 10^3/uL (150-450); Red Blood Count 3.28 10^6/uL (4.20-5.40); Red Cell Distribution Width 15.5 % (11.0-15.0); White Blood Count 13.9 10^3/uL (4.0-11.0)
[2023-08-17 05:05] LABS: Bilirubin Urine SMALL (NEGATIVE); Blood Urine LARGE (NEGATIVE); Clarity Urine CLEAR (CLEAR); Color Urine DK. YELLOW (YELLOW); Glucose Urine UA 100 mg/dL (NEGATIVE); Ketones Urine NEGATIVE (NEGATIVE); Leukocyte Esterase Urine NEGATIVE (NEGATIVE); Nitrite Urine NEGATIVE (NEGATIVE); Protein Urine 100 mg/dL (NEG/TRACE); Specific Gravity Urine 1.025 (1.005-1.025); Urobilinogen Urine 0.2 EU/dL (0.2-1.0)
[2023-08-17 05:13] LABS: Urine Microscopic Indicated YES
[2023-08-17 05:23] LABS: Alanine Aminotransferase 225 U/L (14-59); Albumin Globulin Ratio 0.4; Albumin Level 1.4 g/dL (3.4-5.0); Alkaline Phosphatase 209 U/L (46-116); Anion Gap 17.1; BUN Creatinine Ratio 18.2; Bilirubin Total 0.4 mg/dL (0.2-1.0); Calcium 9.4 mg/dL (8.5-10.1); Carbon Dioxide 18.2 mmol/L (21.0-32.0); Chloride 99 mmol/L (98-107); Estimated GFR (African America 19 (>=60); Estimated GFR (Non-African Ame 16 (>=60); Globulin 3.4 g/dL; Glucose 240 mg/dL (74-106); Potassium 4.3 mmol/L (3.5-5.1); Sodium 130 mmol/L (136-145); Total Protein 4.8 g/dL (6.4-8.2)
[2023-08-17 05:44] LABS: Aspartate Amino Transferase 602 U/L (15-37)
[2023-08-17 05:52] LABS: ABG PCO2 49.8 mmHg (35.0-45.0); Base Excess ABG -10.2 mmol/L (-2.0-2.0); HCO3 ABG 18.3 mmol/L (22.0-26.0); PO2 ABG 63.5 mmHg (80.0-100.0)
[2023-08-17 05:53] LABS: Allen Test POSITIVE (POSITIVE); Fractionated Inspired Oxygen 90 %; Oxygen Saturation ABG 89.1 %; Puncture Site LR; pH ABG 7.174 (7.350-7.450)
[2023-08-17 05:54] LABS: O2 Mode VENT; Rate 16; Tidal Volume 550; Vent Mode AC
[2023-08-17 06:12] LABS: Bacteria Urine NONE SEEN #/HPF (NONE SEEN); Mucus Urine NONE SEEN (NONE SEEN); WBC Urine NONE SEEN #/HPF (NONE SEEN)
[2023-08-17 06:14] LABS: Amorphous Sediment Urine MANY; Cast Seen? NONE SEEN #/LPF (NONE SEEN); Crystals Seen? Seen #/HPF (None Seen); Squamous Epithelial Cell Urine NONE SEEN #/LPF (NONE/RARE)
[2023-08-17 06:20] LABS: Glucometer 231 mg/dL (74-106)
[2023-08-17] MEDS: ACETYLCYSTEINE 400 MG/4 ML VIAL 100 MG IH (07:25)
[2023-08-17] MEDS: SODIUM CHLORIDE 0.9% INHALATION 3 ML NEB IH (07:25)
[2023-08-17] MEDS: ALBUTEROL SULFATE 2.5 MG/3 ML VIAL NEB IH ×2 (07:25→11:17)
--- NOTE | 2023-08-17 08:53 | P.PN_ITS ---
Progress Note: Subjective Subjective Interval history: Patient remains intubated. Dr. Ornelas and myself, along with 2 daughters and 2 sons, grand kids present at bedside this morning. I discussed all new findings with worsening labs, liver functions, kidney functions, heart, lungs. I gave family options for transfer to higher level of care for MICU to [place] but unsure if she would survive the helicopter ride. I also discussed options to keep her comfortable. The family has decided against transfer. They would like comfort measures only and will plan for extubation once more family arrives if she holds on that long. Decision to make her DNRCC. Will continue with ventilator for now, not advance settings, breathing treatments, pain control. Labs and all other medications discontinued at this time. Exam Narrative Exam Narrative: Very limited exam due to family wishes: General: patient is currently ventilated, is not responsive with senior web analyst or painful stimulus Skin: multiple ecchymosis present with dependent swelling in upper and lower ext. Head: atraumatic, acephalic Eyes: pupils are constricted Heart: Normal rate and rhythm, no murmurs/rubs/gallops Lungs: audible wheezes, crackles Abdomen: no audible bowel sounds Musculoskeletal: dependent swelling bilateral lower extremities Constitutional Vital Signs, click to edit/add: Last Vital Signs Temp 98.1 F 08/17/23 07:56 Pulse 93 H 08/17/23 07:56 Resp 20 08/17/23 07:56 BP 91/52 08/17/23 07:56 Pulse Ox 91 L 08/17/23 07:56 O2 Del Method Mechanical Ventilator 08/17/23 07:56 O2 Flow Rate 55 08/15/23 16:00 FiO2 90 08/17/23 07:56 Progress Note: Objective Labs Labs: Short CBC 08/16/23 08/16/23 08/17/23 Range/Units 18:03 19:16 04:42 WBC 12.1 H 12.7 H 13.9 H (4.0-11.0) 10^3/uL Hgb 8.3 L 8.9 L 8.9 L (12.0-16.0) g/dL Hct 26.2 L 26.9 L 27.4 L (36.0-48.0) % Plt Count 58 L 66 L 56 L (150-450) 10^3/uL BMP 08/16/23 08/17/23 19:16 04:42 Sodium 130 L 130 L Potassium 4.3 4.3 Chloride 100 99 Carbon Dioxide 18.7 L 18.2 L BUN 50.0 H 53.0 H Creatinine 2.66 H 2.91 H Glucose 245 H 240 H Calcium 8.7 9.4 Liver Function 08/16/23 08/17/23 Range/Units 19:16 04:42 Total Bilirubin 0.4 0.4 (0.2-1.0) mg/dL AST 973 H* 602 H* (15-37) U/L ALT 262 H 225 H (14-59) U/L Alkaline Phosphatase 201 H 209 H (46-116) U/L Albumin 1.4 L 1.4 L (3.4-5.0) g/dL Urine 08/16/23 Range/Units 04:45 Urine Color Dk. yellow (YELLOW) Urine Clarity Clear (CLEAR) Urine pH 5.0 (5.0-9.0) Ur Specific [place] 1.025 (1.005-1.025) Urine Protein 100 A (NEG/TRACE) mg/dL Urine Glucose (UA) 100 A (NEGATIVE) mg/dL Progress Note: A&P Assessment and Plan (1) Septic shock: Assessment and Plan: stop continue vancomycin and Invanz, Leukocytosis increased today (2) Cardiogenic postoperative shock: Assessment and Plan: cardiogenic shock from severe sepsis; elevated PRO BNP and initial echo showed increased mild right sided pressures with mild diastolic dysfunction. Some pulmonary edema seen on chest X-rays, shes been given lasix 40mg IV twice in the last 2 days. Trop was 141, then 204, 207 repeat ECHO showed high right sided pressures. CT showed dilation of the main pulmonary artery but patient also had a tension pneumothrorax. (3) Sepsis with acute liver failure and septic shock: Assessment and Plan: probable infarct vs sepsis causing liver failure with ast/alt 200/600 (4) CVA (cerebral vascular accident): Assessment and Plan: CT evidence of subacute right occipital lobe infarct, was on lovenox but stopped due to low hemoglobin and possible internal bleeding. H&H maintaining Heparin SQ, but d/c since [facility] (5) Acute renal failure: Assessment and Plan: bun cr continues to climb despite fluid resuscitation (6) Acute respiratory failure: Assessment and Plan: worsening ABGs, plan for extubation today once family here Qualifiers: Respiratory failure complication: hypoxia Qualified Code(s): J96.01 - Acute respiratory failure with hypoxia (7) Small bowel obstruction: Assessment and Plan: postop day #4 from small bowel colon resection. Concern for possible ischemic bowel and/ or perforation in the setting of inital SBO as 2L of peritoneal fluid present (per the operative note)and Ecoli growing in fluid. covering with Invanz. So far no post op changes seen on CT .This is most likely the source of her severe sepsis. Stop antibiotics today, dnrcc (8) Anemia requiring transfusions: Assessment and Plan: down to 5.7, gave 3 units, stopped lovenox 08/15/23, increased protonix for 40mg IV BID, Hb 8.9 today (9) Malnutrition of moderate degree: Assessment and Plan: d/c tpn (10) Hyponatremia: Assessment and Plan: monitor, dc TPN
--- NOTE | 2023-08-17 09:20 | CM.NOTE ---
Rounds made with Dr. Spears, her and Dr. Ornelas had meeting with family regarding plan of care moving forward and pt condition.
[2023-08-17] MEDS: SCOPOLAMINE 1 MG/3 DAYS TRANSDERM PATCH 1 PATCH TD (11:14)
--- NOTE | 2023-08-17 11:28 | RESP.RT ---
increased FiO2 to 100%
--- NOTE | 2023-08-17 11:43 | RESP.RT ---
decreased FiO2 back to 90% due to family decision to not escalate care at this time.
--- NOTE | 2023-08-17 12:43 | RESP.RT ---
patient extubated without incident, family at bedside. placed on 4 LPM NC
--- NOTE | 2023-08-17 13:05 | PM.CCPN1 ---
Critical Care - PN: Subjective Date of Service Date of service: 08/17/23 Subjective Interval history: Patient has not improved since yesterday. CT head positive for subacute cortical infarct in the right occipital lobe. Patient is not moving left sided extremities either. Emergent ThoraVent placed yesterday - CXR this AM shows continued resolution of pneumothorax, but now has pneumomediastinum. There remains an air leak on suction. Creatinine worsening, decreased urine output. Elevated LFTs suggesting shock liver. SpO2 beginning to drop. Despite our efforts, patient is developing multiorgan dysfunction syndrome (MODS) and further treatment is likely futile. I assisted Dr. Cedrick Spears with a family meeting in the patient's room. Exam Constitutional Vital Signs, click to edit/add: Last Vital Signs Temp 98.1 F 08/17/23 12:00 Pulse 90 08/17/23 12:00 Resp 25 H 08/17/23 12:00 BP 104/55 08/17/23 12:00 Pulse Ox 73 L 08/17/23 12:44 O2 Del Method Nasal Cannula 08/17/23 12:44 O2 Flow Rate 4 08/17/23 12:44 FiO2 90 08/17/23 12:00 Documenting provider has reviewed patient's vital signs: yes Other: Patient is tachycardic on ventilator, but does not appear to be in distress. HENNM Other: 8.0 ETT Chest Other: No subcutaneous emphysema palpated. Right ThoraVent is in place, no bleeding surrounding the incision. Respiratory Other: Tachypneic. More breath sounds on right compared to yesterday. Bilateral crackles, no wheezes. Cardio Rhythm: abnormal rhythm irregularly irregular GI Other: Abdominal binder. Absent bowel sounds. Bladder/kidney exam: catheter in place Catheter type (Female): urethral Extremity Other: SCDs Neuro Other: Left arm is flaccid. Not responding to stimuli. Psych Other: Sedated/unresponsive. Critical Care - PN: Obj Data Ventilator Management ?Ventilator management: No changes made to ventilator. Kenyon Kenyon catheter?: Yes Urinary Catheter Management Urinary Catheter Management Urethral: Cath placed during this visit: yes Urethral indwelling: Yes Reason for continuing: measure accurate output Insertion date: 08/13/23 Critical Care - PN: A&P Assessment and Plan (1) Septic shock: Assessment and Plan: 1. Septic shock. Secondary to E. coli associated with underlying SBO/ileal process. Blood cultures x 2 from 08/13/2023 were both no growth. Repeated cultures from yesterday remain pending. 2. Spontaneous right pneumothorax. Emergent right ThoraVent placed yesterday. Tension pneumothorax resolved, but patient now developing pneumomediastinum. Treatment for this is supportive. I had turned down the PEEP to 5 to avoid further barotrauma yesterday. 3. Acute hypoxic respiratory failure. No improvement. PEEP turned down d/t pneumothorax and now pneumomediastinum. 4. Acute hypercapnic respiratory failure. No significant improvement. Remains combined metabolic + respiratory acidosis. 5. Subacute right occipital lobe cortical infarct. Noted on CT head 08/16/2023. 6. Acute renal failure secondary to septic shock , on top of chronic kidney disease stage III. Continues to worsen. Family voiced no hemodialysis. 7. NSTEMI type 2 (supply/demand mismatch). Secondary to acute illness/shock and respiratory failure. 8. Pneumomediastinum. Associated with pneumothorax. 9. Metabolic (lactic) acidosis associated with septic shock (type B). 10. Iron deficiency anemia. 11. Hypokalemia. 12. Hypomagnesemia. 13. Hypoalbuminemia. 14. POD #3 (08/13/2023) small bowel resection for small bowel obstruction. General surgery management. Plan Long discussion with family reviewing current labs, imaging, status, etc. Patient developing MODS, medical care likely futile at this point. Offer was made for transfer to tertiary care center, but family declined this option. They stated that their goal is to make the patient comfortable and to remove the endotracheal tube and cease ventilator support. She was terminally extubated and made comfortable. As I am typing this note, I was informed by nursing that the patient at 13:05. Fall Risk Details Bryant Fall Scale Risk Level: High Fall Risk Current medications: Current Medications Albuterol (Albuterol Sulfate 2.5 Mg/3 Ml Vial Neb) 2.5 mg IH Q2H PRN PRN Reason: Shortness Of Breath Or Wheezing Last Admin: 08/17/23 11:17 Dose: 2.5 mg Fentanyl Citrate (Fentanyl Citrate/Pf 100 Mcg/2 Ml Vial) 50 mcg IV Q1H PRN PRN Reason: Agitation Last Admin: 08/17/23 11:09 Dose: 50 mcg Time Spent with Patient Critical care time: 30 - 74 mins Time spent: 35 minutes spent on this case, including discussion with family, Dr. Cedrick Spears, RN, and RT.
--- NOTE | 2023-08-17 13:26 | PC.NURSE ---
1305- Family at bedside. Abscense of BP, Pulse, Spontaneous respirations. Pupils fixed. Patient pronounced with varification of myself and Jolly Trujillo RN
--- NOTE | 2023-08-17 13:54 | PC.NURSE ---
1245- Family requests heart monitor, NIBP, SPO2 to be removed. All monitors removed
--- NOTE | 2023-08-17 15:01 | PM.DS1 ---
DS: Providers Provider Date of admission: 08/10/23 10:30 Primary care physician: SOHAN QUIROZ Admitting clinician: Avery Smith Consults: 08/10/23 08:16 Occupational Therapy Eval and Treat Routine Reason for consultation: Weakness Physical Therapy Eval and Treat Routine Reason for consultation: Weakness 08/12/23 16:05 Consult to General Surgeon Routine Consulting Provider: Stevie Uribe Reason for consultation: sbo Has provider been notified: Yes 08/13/23 13:58 Consult to PICC Line RN Routine Consulting Provider: Hospitalist Reason for consultation: not enough IV access Has provider been notified: No 08/13/23 20:45 Consult to Pulmonology Routine Consulting Provider: Lobo Ornelas Reason for consultation: vent management/sepsis Has provider been notified: Yes 08/14/23 08:00 Consult to Dietitian Routine Reason For Exam: malnutrtition-need for tpn Reason for consultation: severe malnutrition Has provider been notified: No 08/14/23 08:30 Consult to Cardiology Routine Reason for consultation: sepsis, heart failure new onset Has provider been notified: No 08/14/23 09:12 Consult to Anesthesiology Routine Consulting Provider: Hospitalist Reason for consultation: art line Has provider been notified: Yes Attending physician on discharge: Jerilyn Spears DS: Diagnosis Discharge Diagnosis (1) Septic shock: (2) Small bowel obstruction: (3) Acute respiratory failure: Qualifiers: Respiratory failure complication: hypoxia Qualified Code(s): J96.01 - Acute respiratory failure with hypoxia (4) Malnutrition of moderate degree: (5) Cardiogenic postoperative shock: (6) Hyponatremia: (7) Anemia requiring transfusions: (8) CVA (cerebral vascular accident): (9) Sepsis with acute liver failure and septic shock: (10) Acute renal failure: DS: Summary Hospital Course Hospital Course: please see progress note dated today 08/17/23 for full details; family decided to extubate and DNRCC, patient passed and time of was 1305. Time Spent with Patient Time attestation: Total time spent providing and/or coordinating discharge services: Exam Narrative Exam Narrative: Constitutional Vital Signs, click to edit/add: Last Vital Signs Temp 98.1 F 08/17/23 12:00 Pulse 90 08/17/23 12:00 Resp 25 H 08/17/23 12:00 BP 104/55 08/17/23 12:00 Pulse Ox 73 L 08/17/23 12:44 O2 Del Method Nasal Cannula 08/17/23 12:44 O2 Flow Rate 4 08/17/23 12:44 FiO2 90 08/17/23 12:00 DS: Data Data Completed and Pending Labs on day of discharge: Labs from last 24 hours 08/17/23 08/17/23 08/17/23 06:19 05:40 04:42 WBC 13.9 H RBC 3.28 L Hgb 8.9 L Hct 27.4 L MCV 83.5 MCH 27.1 MCHC 32.5 RDW 15.5 H Plt Count 56 L MPV 10.9 Neut % (Auto) 91.4 H Lymph % (Auto) 1.[address] [place] % (Auto) 4.7 Eos % (Auto) 0.1 L Baso % (Auto) 0.4 Neut # (Auto) 12.7 H Lymph # (Auto) 0.[address] [place] # (Auto) 0.7 Eos # (Auto) 0.0 Baso # (Auto) 0.1 Abs Immat Gran (auto) 0.26 H Seg Neuts % (Manual) Band Neutrophils % Lymphocytes % (Manual) Monocytes % (Manual) Eosinophils % (Manual) Basophils % (Manual) Myelocytes % Imm/Tot Granulo (auto) 1.9 H Neutrophils # (Manual) Band Neutrophils # Lymphocytes # (Manual) Monocytes # (Manual) Eosinophils # (Manual) Basophils # (Manual) Myelocytes # Puncture Site Lr ABG pH 7.174 L* ABG pCO2 49.8 H ABG pO2 63.5 L ABG HCO3 18.3 L ABG O2 Saturation 89.1 ABG Base Excess -10.2 L Adrian Test Positive Vent Mode Ac FiO2 90 Tidal Volume 550 Sodium 130 L Potassium 4.3 Chloride 99 Carbon Dioxide 18.2 L Anion Gap 17.1 BUN 53.0 H Creatinine 2.91 H Est GFR ( Amer) 19 L Est GFR (Non-Af Amer) 16 L BUN/Creatinine Ratio 18.2 Glucose 240 H Lactate 1.0 Calcium 9.4 Magnesium 2.0 Total Bilirubin 0.4 AST 602 H* ALT 225 H Alkaline Phosphatase 209 H Total Protein 4.8 L Albumin 1.4 L Globulin 3.4 Albumin/Globulin Ratio 0.4 Urine Color Urine Clarity Urine pH Ur Specific Geary Urine Protein Urine Glucose (UA) Urine Ketones Urine Occult Blood Urine Nitrite Urine Bilirubin Urine Urobilinogen Ur Leukocyte Esterase Urine RBC Urine WBC Ur Squamous Epith Cells Urine Crystals Amorphous Sediment Urine Bacteria Urine Casts Urine Mucus POC Glucose 231 H 08/17/23 08/16/23 08/16/23 00:26 19:16 18:03 WBC 12.7 H 12.1 H RBC 3.22 L 3.01 L Hgb 8.9 L 8.3 L Hct 26.9 L 26.2 L MCV 83.5 87.0 MCH 27.6 27.6 MCHC 33.1 31.7 RDW 15.4 H 15.9 H Plt Count 66 L 58 L MPV 11.4 10.9 Neut % (Auto) 92.5 H Lymph % (Auto) 1.[address] [place] % (Auto) 4.2 Eos % (Auto) 0.5 L Baso % (Auto) 0.3 Neut # (Auto) 11.2 H Lymph # (Auto) 0.[address] [place] # (Auto) 0.5 Eos # (Auto) 0.1 Baso # (Auto) 0.0 Abs Immat Gran (auto) 0.12 H Seg Neuts % (Manual) 94.0 Band Neutrophils % 1.0 Lymphocytes % (Manual) 1.0 L Monocytes % (Manual) 2.0 Eosinophils % (Manual) 0.0 L Basophils % (Manual) 0.0 L Myelocytes % 2.0 Imm/Tot Granulo (auto) 1.0 H Neutrophils # (Manual) 11.93 H Band Neutrophils # 0.1 Lymphocytes # (Manual) 0.12 L Monocytes # (Manual) 0.25 L Eosinophils # (Manual) 0.00 Basophils # (Manual) 0.00 Myelocytes # 0.25 Puncture Site ABG pH ABG pCO2 ABG pO2 ABG HCO3 ABG O2 Saturation ABG Base Excess Adrian Test Vent Mode FiO2 Tidal Volume Sodium 130 L Potassium 4.3 Chloride 100 Carbon Dioxide 18.7 L Anion Gap 15.6 BUN 50.0 H Creatinine 2.66 H Est GFR ( Amer) 21 L Est GFR (Non-Af Amer) 17 L BUN/Creatinine Ratio 18.8 Glucose 245 H Lactate Calcium 8.7 Magnesium Total Bilirubin 0.4 AST 973 H* ALT 262 H Alkaline Phosphatase 201 H Total Protein 4.3 L Albumin 1.4 L Globulin 2.9 Albumin/Globulin Ratio 0.5 Urine Color Urine Clarity Urine pH Ur Specific [place] Urine Protein Urine Glucose (UA) Urine Ketones Urine Occult Blood Urine Nitrite Urine Bilirubin Urine Urobilinogen Ur Leukocyte Esterase Urine RBC Urine WBC Ur Squamous Epith Cells Urine Crystals Amorphous Sediment Urine Bacteria Urine Casts Urine Mucus POC Glucose 252 H 08/16/23 08/16/23 17:27 04:45 WBC RBC Hgb Hct MCV MCH MCHC RDW Plt Count MPV Neut % (Auto) Lymph % (Auto) [place] % (Auto) Eos % (Auto) Baso % (Auto) Neut # (Auto) Lymph # (Auto) [place] # (Auto) Eos # (Auto) Baso # (Auto) Abs Immat Gran (auto) Seg Neuts % (Manual) Band Neutrophils % Lymphocytes % (Manual) Monocytes % (Manual) Eosinophils % (Manual) Basophils % (Manual) Myelocytes % Imm/Tot Granulo (auto) Neutrophils # (Manual) Band Neutrophils # Lymphocytes # (Manual) Monocytes # (Manual) Eosinophils # (Manual) Basophils # (Manual) Myelocytes # Puncture Site ABG pH ABG pCO2 ABG pO2 ABG HCO3 ABG O2 Saturation ABG Base Excess Adrian Test Vent Mode FiO2 Tidal Volume Sodium Potassium Chloride Carbon Dioxide Anion Gap BUN Creatinine Est GFR ( Amer) Est GFR (Non-Af Amer) BUN/Creatinine Ratio Glucose Lactate Calcium Magnesium Total Bilirubin AST ALT Alkaline Phosphatase Total Protein Albumin Globulin Albumin/Globulin Ratio Urine Color Dk. yellow Urine Clarity Clear Urine pH 5.0 Ur Specific [place] 1.025 Urine Protein 100 A Urine Glucose (UA) 100 A Urine Ketones Negative Urine Occult Blood Large A Urine Nitrite Negative Urine Bilirubin Small A Urine Urobilinogen 0.2 Ur Leukocyte Esterase Negative Urine RBC 2-5 A Urine WBC None seen Ur Squamous Epith Cells None seen Urine Crystals Seen A Amorphous Sediment Many Urine Bacteria None seen Urine Casts None seen Urine Mucus None seen POC Glucose 258 H Preliminary micro results at discharge 08/13/23 11:08 - Preliminary Abdominal Fluid - Preliminary 08/13/23 14:25 - Preliminary Blood NO GROWTH AT 36-48 HOURS. FINAL TO FOLLOW. 08/13/23 14:20 - Preliminary Blood NO GROWTH AT 36-48 HOURS. FINAL TO FOLLOW. Discharge Plan Discharge Disposition: Date/Time: 08/17/23 13:05
== END 2023-08-17 16:00 | disposition expired | DRG 329 ==
LOC: ER 21:45 → MS 23:05 → ICU 08-14 07:57
PROVIDERS: Anesthesiology; Family Medicine; Internal Medicine; Physician Assistant; Surgery; Admitting Provider Family Medicine; Emergency Provider Emergency Medicine; PCP Nurse Practitioner; Visit Provider Family Medicine
PROC: 0DBB0ZZ Excision of Ileum, Open Approach (ICD-10-PCS; principal; 2023-08-13 09:15)
DX: C17.2 Malignant neoplasm of ileum (principal); A41.51 Sepsis due to Escherichia coli [E. coli]; U07.1 COVID-19; R65.21 Severe sepsis with septic shock; J93.0 Spontaneous tension pneumothorax; T81.11XA Postprocedural cardiogenic shock, initial encounter; I63.9 Cerebral infarction, unspecified; K72.00 Acute and subacute hepatic failure without coma; J96.01 Acute respiratory failure with hypoxia; J96.02 Acute respiratory failure with hypercapnia; I21.A1 Myocardial infarction type 2; K56.609 Unspecified intestinal obstruction, unspecified as to partial versus complete obstruction; N17.9 Acute kidney failure, unspecified; E44.0 Moderate protein-calorie malnutrition; E87.1 Hypo-osmolality and hyponatremia; I13.0 Hypertensive heart and chronic kidney disease with heart failure and stage 1 through stage 4 chronic kidney disease, or unspecified chronic kidney disease; Z99.11 Dependence on respirator [ventilator] status; E83.42 Hypomagnesemia; E78.5 Hyperlipidemia, unspecified; M10.9 Gout, unspecified; Z79.899 Other long term (current) drug therapy; K21.9 Gastro-esophageal reflux disease without esophagitis; N18.31 Chronic kidney disease, stage 3a; D50.9 Iron deficiency anemia, unspecified; Z68.29 Body mass index [BMI] 29.0-29.9, adult; E87.6 Hypokalemia; Z90.49 Acquired absence of other specified parts of digestive tract; Z82.49 Family history of ischemic heart disease and other diseases of the circulatory system; Z83.3 Family history of diabetes mellitus; Z83.6 Family history of other diseases of the respiratory system; I50.9 Heart failure, unspecified; Z66 Do not resuscitate; Z51.5 Encounter for palliative care; Z88.0 Allergy status to penicillin; J98.2 Interstitial emphysema; D69.6 Thrombocytopenia, unspecified; Z78.1 Physical restraint status; Y83.8 Other surgical procedures as the cause of abnormal reaction of the patient, or of later complication, without mention of misadventure at the time of the procedure
CPT/HCPCS: 31720; 36415; 36430; 36569; 36592; 36600; 70450; 71045; 71250; 74022; 74176; 74177; 80048; 80053; 81001; 82150; 82805; 82948; 83605; 83690; 83735; 83880; 84100; 84484; 85025; 85027; 85652; 86850; 86900; 86901; 87040; 87070; 87075; 87102; 87116; 87150; 87186; 87205; 87206; 87493; 87635; 87811; 88309; 93005; 93306; 93308; 94002; 94003; 94640; 94761; 96361; 96365; 96366; 96367; 96368; 96372; 96375; 96376; 97161; 97165; 97530; 99285; 99999; C1887; G0378; J1170; J1335; J1720; J2704; J3370; J3480; P9016; P9047; Q3014; Q9967